=== PATIENT | female | born 1935 | race Caucasian/White ===

== ENCOUNTER 2020-01-20 12:43 | Outpatient (REF) | payer OTHER, SELFPAY ==
[2020-01-20 13:59] LABS: MANUAL DIFF FLAG NO
[2020-01-20 14:05] LABS: Basophils Percent Auto 0.2 % (0-2); Eosinophils Absolute Auto 0.1 X10*3/uL (0.0-0.4); Eosinophils Percent Auto 0.6 % (0-4); Hematocrit 41.1 % (37-47); Hemoglobin 13.5 g/dl (12.0-16.0); Imm Gran Abs Auto 0.02 X10*3/uL (0.00-0.03); Imm Gran Pct Auto 0.2 % (0.0-0.4); Lymphocytes Absolute Auto 1.5 X10*3/uL (1.2-4.9); Lymphocytes Percent Auto 18.1 % (20-40); Mean Corpuscular HGB Conc 32.8 g/dl (31.0-35.0); Mean Corpuscular Volume 94.3 fL (80-98); Mean Platelet Volume 10.7 fL (9.4-12.3); Monocytes Absolute Auto 0.8 X10*3/uL (0.1-1.2); Monocytes Percent Auto 9.2 % (2-11); Neutrophils Absolute Auto 6.1 X10*3/uL (2.0-8.3); Neutrophils Percent Auto 71.7 % (45-73); Platelet Count 303 X10*3/uL (160-400); Red Blood Count 4.36 X10*6/uL (4.20-5.50); Red Cell Distribution Width 13.2 % (11.0-16.0); White Blood Count 8.5 X10*3/uL (4.8-10.8)
[2020-01-20 14:17] LABS: Glucose Urine UA NEG (NEG); Leukocyte Esterase Urine NEG (NEG); Nitrite Urine NEG (NEG); PH 5.5 (5.0-8.0); Specific Gravity - Urine >= 1.030 (1.005-1.025); Urine Blood 1+ (NEG); Urine Ketones NEG (NEG); Urine Protein TRACE MG/DL (NEG-TRACE)
[2020-01-20 14:19] LABS: Appearance Urine HAZY; Color Urine DARK YELLOW
[2020-01-20 14:30] LABS: Alanine Aminotransferase 17 U/L (0-31); Albumin Level 4.2 g/dL (3.5-5.0); Alkaline Phosphatase 73 U/L (39-117); Anion Gap 19 (12-20); Aspartate Amino Transferase 20 U/L (5-31); Bilirubin Total 0.7 mg/dL (0.0-1.0); Blood Urea Nitrogen 24 mg/dL (9-16); C Reactive Protein 0.28 mg/dL (< or = 0.50); Calcium 9.3 mg/dL (8.4-10.2); Carbon Dioxide 22 mmol/L (22-29); Chloride 107 mmol/L (96-108); Estimated Glomerular Filt Rate > 60; Glucose Random 96 mg/dL (60-115); Potassium 4.6 mmol/l (3.3-5.1); Sodium 143 mmol/L (135-145); Total Protein 6.6 g/dL (6.5-8.0)
[2020-01-20 14:36] LABS: Bacteria Urine TRACE /LPF; Calcium Oxalate Crystals Urine 4+ /LPF; Mucus Urine 3+ /LPF
== END 2020-01-20 12:44 | disposition home or self-care (01) ==
LOC: HO.10HDL 12:43
PROVIDERS: Visit Provider Internal Medicine
DX: I10 Essential (primary) hypertension (principal)
CPT/HCPCS: 36415; 80053; 81001; 85025; 86140

== ENCOUNTER 2020-02-18 09:35 | Day surgery (SDC) | payer OTHER, SELFPAY ==
[2020-02-14 13:24] VITALS: BMI 25.0
--- NOTE | 2020-02-16 15:32 | HO.ANESPROP2 ---
Documented by User: Vesna Woo 02/16/20 15:33 HPI - Anesthesia Eval Consult details Narrative: 84yo F for Colonoscopy [facility] Past Medical History Medical History (Updated 02/18/20 @ 10:44 by Yolanda Camargo) Chest pain Elevated cholesterol HTN (hypertension) Hx of thyroid cyst Surgical History Surgical History Hx of cataract extraction Hx of excision of mass Social History Social History Smoking Status: Never smoker Use of substances other than those prescribed or required for medical reasons: No Advance Directives Information Provided: No Meds Allergies Allergy/AdvReac Type Severity Reaction Status Date / Time No Known Allergies Allergy Verified 02/14/20 13:27 [No Known Allergies*] Home Medications Medication Instructions Recorded Confirmed Type aspirin [Aspirin Low Dose] 81 mg PO DAILY 02/14/20 02/14/20 History atenolol 50 mg PO DAILY 02/14/20 02/14/20 History lisinopril 1 tab PO DAILY 02/14/20 02/14/20 History simvastatin 1 tab PO BEDTIME 02/14/20 02/14/20 History Exam Exam Date and Time: February 16, 2020 1532 Height,Weight and Vital Signs: Height 5 ft 2 in Weight 62.142 kg Pertinent Lab Results Pertinent Lab Results: Laboratory Tests 01/20/20 01/20/20 13:00 13:00 WBC 8.5 Hgb 13.5 Hct 41.1 Plt Count 303 Sodium 143 Potassium 4.6 Chloride 107 Carbon Dioxide 22 BUN 24 H Creatinine 0.84 Assessment and Plan Assessment Anesthesia Assessment: Chart Reviewed Documented by User: Yolanda Camargo 02/18/20 10:44 [facility] Past Medical History Medical History (Updated 02/18/20 @ 10:44 by Yolanda Camargo) Chest pain Elevated cholesterol HTN (hypertension) Hx of thyroid cyst Family History Family history of problems with anesthesia: Yes (Brother has 'trouble coming out of anesthesia') Surgical History Surgical History Hx of cataract extraction Hx of excision of mass History of Problems with Anesthesia: No Social History Social History Smoking Status: Never smoker Use of substances other than those prescribed or required for medical reasons: No Advance Directives Information Provided: No Meds Allergies Allergy/AdvReac Type Severity Reaction Status Date / Time No Known Allergies Allergy Verified 02/14/20 13:27 [No Known Allergies*] Home Medications Medication Instructions Recorded Confirmed Type aspirin [Aspirin Low Dose] 81 mg PO DAILY 02/14/20 02/14/20 History atenolol 50 mg PO DAILY 02/14/20 02/14/20 History lisinopril 1 tab PO DAILY 02/14/20 02/14/20 History simvastatin 1 tab PO BEDTIME 02/14/20 02/14/20 History Exam Height,Weight and Vital Signs: Vital Signs Temp Pulse Resp BP Pulse Ox 02/18/20 10:17 97.9 F 72 16 170/74 H 98 Airway Mallampati Class: II TM Dist: >3cm Neck ROM: Full Loose/Missing/Broken Teeth: No (Overlapping teeth) Heart: RRR Lungs: CTAB Assessment and Plan Assessment Anesthesia Assessment: Anesthesia Plan Discussed and Chart Reviewed Final Anesthetic Review NPO: Yes ASA Class: III Final Preanesthetic Review: No Changes in Pt Med Stat, Meds/Allgs Chart Reviewed, Consent Obtained/Reviewed and Anes Risks/Benef Reviewed Patient Risk: Intermediate Procedure Risk: Low Anesthetic Plan Anesthetic Plan: MAC: Disposition: Standard PACU
[2020-02-18 10:17] VITALS: BP 170/74; PULSE 72; RESP 16; TEMP 36.6; O2SAT 98
[2020-02-18 11:36] VITALS: BP 114/46; PULSE 67; RESP 12; TEMP 36.4; O2SAT 97
--- NOTE | 2020-02-18 11:41 | PM.OP ---
Brief Operative Note Date of Service: 02/18/20 Pre-op diagnosis: Heme + stool Post-op diagnosis: other (Colon polyp, Diverticulosis, Internal hemorrhoids) Procedure: Colonoscopy to cecum and TI with biopsy and removal of polyp Surgeon: Demarcus Vasquez Anesthesia: MAC Estimated blood loss (mL): 2.0 Pathology: other (A. Cecal polyp) Condition: stable Disposition: PACU
[2020-02-18 11:52] VITALS: BP 138/64; PULSE 77; RESP 18; O2SAT 98
[2020-02-18 12:04] VITALS: BP 154/61; PULSE 59; RESP 18; TEMP 36.6; O2SAT 98
--- NOTE | 2020-02-18 12:04 | OP_ITS ---
SURGEON: Demarcus Vasquez MD INDICATIONS: The patient presents for evaluation of recent hematochezia and heme-positive stool. Full consent has been obtained from her for this, including risks of bleeding and perforation. PREOPERATIVE DIAGNOSIS: POSTOPERATIVE DIAGNOSIS: PROCEDURE PERFORMED: Colonoscopy to the cecum and terminal ileum with biopsy and removal of polyp. ESTIMATED BLOOD LOSS: COMPLICATIONS: ANESTHESIA: Monitored anesthesia care. ASSISTANTS: SPECIMENS: PREOPERATIVE DIAGNOSES: Hematochezia and heme-positive stool. POSTOPERATIVE DIAGNOSES: Hematochezia and heme-positive stool, small colon polyp, diverticulosis, and internal hemorrhoids. DESCRIPTION OF PROCEDURE: The patient was placed in the left lateral decubitus position. The digital rectal exam revealed no abnormalities. The Olympus video pediatric colonoscope was entered into the rectum and advanced easily to the cecum. Once in the cecum, I did identify normal-appearing cecal pouch other than a flat approximately 3 or 4 mm polyp near the ileocecal valve, which was biopsied and completely removed with cold biopsy forceps. The remainder of the cecum appeared normal. The terminal ileum was cannulated and appeared normal. The scope was withdrawn back in the colon. The scope was then slowly withdrawn assessing all mucosal surfaces carefully. Preparation was excellent. I did not visualize any other polyps, colitis, nor angiodysplasia. There was a moderate amount of sigmoid diverticulosis. In the rectum, scope was retroflexed visualizing internal hemorrhoids, but no other pathology. The rectal mucosa appeared normal. The scope was straightened out and withdrawn from the patient. She tolerated procedure well and was returned to the recovery area in stable condition. IMPRESSION: 1. Small colon polyp, status post biopsy and removal. 2. Diverticulosis. 3. Internal hemorrhoids. PLAN: The results of the biopsy will be checked. Given these minimal findings and her age, I do not think she will need any further colonoscopies in the future. Since the initial episode of some bleeding, she has had no further problems like that and her bowel movements have been regular. She had a normal CBC as well. Therefore, I do not think any further workup is required. She will see me on a p.r.n. basis. MD MARGUERITE Mann/DEAN / [phone]
--- NOTE | 2020-02-18 12:12 | HO.POSTANES ---
Post Anesthesia Evaluation Post Anesthesia Evaluation Vital Signs: Vital Signs Temp Pulse Resp BP Pulse Ox 02/18/20 12:04 97.9 F 59 18 154/61 H 98 02/18/20 11:52 77 18 138/64 98 02/18/20 11:36 97.5 F 67 12 114/46 L 97 02/18/20 10:17 97.9 F 72 16 170/74 H 98 Anesthesia: Monitored Mental Status: Awake Pain Control: Satisfactory Nausea/Vomiting: None Hydration: Adequate Anesthesia-Related Issues: No Anes. Related Issues
== END 2020-02-18 12:32 | disposition home or self-care (01) ==
PROVIDERS: PCP Internal Medicine; Visit Provider Internal Medicine
PROC: 0DJD8ZZ Inspection of Lower Intestinal Tract, Via Natural or Artificial Opening Endoscopic (ICD-10-PCS; CPT 45378; principal; 2020-02-18 11:00)
DX: K92.1 Melena (principal); D12.0 Benign neoplasm of cecum; K57.30 Diverticulosis of large intestine without perforation or abscess without bleeding; K64.8 Other hemorrhoids
CPT/HCPCS: 45380; 88305

== ENCOUNTER 2020-06-25 16:00 | Emergency (ER) | payer OTHER, SELFPAY ==
[2020-06-25 16:05] VITALS: BP 205/85; PULSE 74; RESP 16; TEMP 36.6; O2SAT 97; BMI 23.3
[2020-06-25 16:18] LABS: MANUAL DIFF FLAG NO
[2020-06-25 16:24] LABS: Basophils Percent Auto 0.4 % (0-2); Eosinophils Absolute Auto 0.2 X10*3/uL (0.0-0.4); Eosinophils Percent Auto 1.6 % (0-4); Hematocrit 41.1 % (37-47); Hemoglobin 13.7 g/dl (12.0-16.0); Imm Gran Abs Auto 0.03 X10*3/uL (0.00-0.03); Imm Gran Pct Auto 0.3 % (0.0-0.4); Lymphocytes Absolute Auto 2.4 X10*3/uL (1.2-4.9); Lymphocytes Percent Auto 21.9 % (20-40); Mean Corpuscular HGB Conc 33.3 g/dl (31.0-35.0); Mean Corpuscular Hemoglobin 31.1 pg (27.0-33.0); Mean Corpuscular Volume 93.2 fL (80-98); Mean Platelet Volume 9.7 fL (9.4-12.3); Neutrophils Absolute Auto 7.2 X10*3/uL (2.0-8.3); Neutrophils Percent Auto 66.8 % (45-73); Platelet Count 287 X10*3/uL (160-400); Red Blood Count 4.41 X10*6/uL (4.20-5.50); Red Cell Distribution Width 12.2 % (11.0-16.0); White Blood Count 10.8 X10*3/uL (4.8-10.8)
[2020-06-25 16:39] LABS: Anion Gap 15 (12-20); Blood Urea Nitrogen 18 mg/dL (9-16); Calcium 9.4 mg/dL (8.4-10.2); Carbon Dioxide 25 mmol/L (22-29); Chloride 105 mmol/L (96-108); Creatinine Clr Calc Pharmacy 48.1; Estimated Glomerular Filt Rate > 60; Glucose Random 140 mg/dL (60-115); Potassium 3.9 mmol/L (3.3-5.1); Sodium 141 mmol/L (135-145)
[2020-06-25 16:46] LABS: Glucose Urine UA NEG (NEG); Leukocyte Esterase Urine TRACE (NEG); Nitrite Urine NEG (NEG); PH 5.5 (5.0-8.0); Specific Gravity - Urine 1.015 (1.005-1.025); UACC Culture Trigger YES; Urine Blood TRACE (NEG); Urine Ketones NEG (NEG); Urine Protein NEG (NEG-TRACE)
[2020-06-25 16:49] LABS: Appearance Urine CLEAR; Color Urine YELLOW
[2020-06-25 17:02] LABS: Bacteria Urine TRACE /LPF; RBC Urine 0-2 /HPF (0); Squamous Epithelial Cell Urine 1+ /LPF
[2020-06-25 20:36] VITALS: BP 232/92; PULSE 75; RESP 18; TEMP 36.7; O2SAT 97
--- NOTE | 2020-06-25 20:50 | ED_ITS ---
HPI - Nausea/Vomiting/Diarrhea General Chief complaint: Nausea/Vomiting/Diarrhea Stated complaint: NAUSEA Time Seen by Provider: 06/25/20 20:50 Source: patient Mode of arrival: ambulatory Limitations: no limitations History of Present Illness HPI Narrative: Patient had tooth extraction 4 days ago started on amoxicillin and tramadol since then feeling nauseated patient had to stop her medication within 2 days patient denies any vomiting no abdominal pain feel anxious no diarrhea no fever or chills no shortness of breath or cough MD elicited complaint: nausea Onset (ago): day(s) (6) Related Data Home Medications Medication Instructions Recorded Confirmed aspirin [Aspirin Low Dose] 81 mg PO DAILY 02/14/20 02/18/20 atenolol 50 mg PO DAILY 02/14/20 02/14/20 lisinopril 1 tab PO DAILY 02/14/20 02/18/20 simvastatin 1 tab PO BEDTIME 02/14/20 02/14/20 Previous Rx's Medication Instructions Recorded ondansetron 4 mg PO Q6-8H PRN #7 tab 06/26/20 Allergies Allergy/AdvReac Type Severity Reaction Status Date / Time No Known Allergies Allergy Verified 02/14/20 13:27 [No Known Allergies*] Review of Systems Review of Systems: Constitutional : No Weight loss, No Fever, No Chills ENT/Mouth : No sore throat, No Rhinorrhea Eyes: No Eye Pain, No Swelling Cardiovascular : No Chest Pain, no palpitations Respiratory : No Cough, No Sputum, no shortness of breath Gastrointestinal : +Nausea, No Vomiting, No Diarrhea, No abdominal Pain, no black stools Genitourinary : No Dysuria, No Urinary Frequency Musculoskeletal : No joint pain, No Myalgias, No Joint Swelling Skin : No Skin Lesions, No rash Neuro : No Weakness, No Numbness, No Dizziness, No Headache Psych : No Anxiety/Panic, No Depression Heme/Lymph: No Bruising, No Lymphadenopathy Endocrine : No Polyuria, No Polydipsia All other systems reviewed and are negative PMFSH Past Medical History Medical History Chest pain Elevated cholesterol HTN (hypertension) Hx of thyroid cyst Surgical History Hx of cataract extraction Hx of excision of mass Social History Social History Smoking Status: Never smoker Advance Directives: No Advance Directives Information Provided: No Physical Exam Vital Signs: Vital Signs: Last Vital Signs Temp 98.1 F 06/25/20 20:36 Pulse 75 06/25/20 23:55 Resp 15 06/25/20 23:55 BP 204/68 H 06/25/20 23:55 Pulse Ox 97 06/25/20 23:55 Body Mass Index 23.3 Appearance: Alert. Oriented X3. No acute distress. Anxious Eyes: Pupils equal, round and reactive to light. ENT: Pharynx normal. Neck: Normal inspection. Neck supple. CVS: Normal heart rate and rhythm. Pulses normal. Respiratory: No respiratory distress. Breath sounds normal. Abdomen: Soft and nontender. Bowel sounds are present, no mass palpable, no CVA tenderness Skin: Skin warm and dry. Normal skin color. Normal skin turgor. Extremities: No lower extremity edema. No calf tenderness Neuro: Oriented X 3. No motor deficit. No sensory deficit. MDM - Nausea/Vomiting/Diarrhea MDM Narrative Medical decision making narrative: Patient with mild nausea etiology not very clear likely medications questionable anxiety. No vomiting in the ER labs are stable will discharge patient home on [facility] Lab Data Attestation: I reviewed the patient's lab results. Result diagrams: 06/25/20 16:11 06/25/20 16:11 Labs: Lab Results 06/25/20 06/25/20 06/25/20 Range/Units 16:11 16:11 16:37 WBC 10.8 (4.8-10.8) X10*3/uL RBC 4.41 (4.20-5.50) X10*6/uL Hgb 13.7 (12.0-16.0) g/dl Hct 41.1 (37-47) % MCV 93.2 (80-98) fL MCH 31.1 (27.0-33.0) pg MCHC 33.3 (31.0-35.0) g/dl RDW 12.2 (11.0-16.0) % Plt Count 287 (160-400) X10*3/uL MPV 9.7 (9.4-12.3) fL Immature Gran % (Auto) 0.3 (0.0-0.4) % Neut % (Auto) 66.8 (45-73) % Lymph % (Auto) 21.9 (20-40) % [place] % (Auto) 9.0 (2-11) % Eos % (Auto) 1.6 (0-4) % Baso % (Auto) 0.4 (0-2) % Lymph # (Auto) 2.4 (1.2-4.9) X10*3/uL [place] # (Auto) 1.0 (0.1-1.2) X10*3/uL Eos # (Auto) 0.2 (0.0-0.4) X10*3/uL Baso # (Auto) 0.0 (0.0-0.2) X10*3/uL Abs Immat Gran (auto) 0.03 (0.00-0.03) X10*3/uL Absolute Neuts (auto) 7.2 (2.0-8.3) X10*3/uL Absolute Nucleated RBC 0.000 (0.0-0.012) X10*3/uL Nucleated RBC % (auto) 0.0 (0.0-0.2) /100WBC Sodium 141 (135-145) mmol/L Potassium 3.9 (3.3-5.1) mmol/L Chloride 105 (96-108) mmol/L Carbon Dioxide 25 (22-29) mmol/L Anion Gap 15 (12-20) BUN 18 H (9-16) mg/dL Creatinine 0.81 (0.5-1.4) mg/dL Estim Creat Clear Calc 48.1 Estimated GFR > 60 Random Glucose 140 H D (60-115) mg/dL Calcium 9.4 (8.4-10.2) mg/dL Urine Color YELLOW Urine Appearance CLEAR Urine pH 5.5 (5.0-8.0) Ur Specific [place] 1.015 (1.005-1.025) Urine Protein NEG (NEG-TRACE) MG/DL Urine Glucose (UA) NEG (NEG) MG/DL Urine Ketones NEG (NEG) MG/DL Urine Blood TRACE (NEG) Urine Nitrite NEG (NEG) Ur Leukocyte Esterase TRACE H (NEG) Urine RBC 0-2 (0) /HPF Urine WBC 1-4 (0-4) /HPF Ur Squamous Epith Cells 1+ /LPF Urine Bacteria TRACE /LPF Discharge Plan Discharge Clinical Impression: Nausea Patient Disposition: Home, Self-Care Instructions: Acute Nausea and Vomiting (ED) Additional Instructions: Drink plenty of fluids take nausea medication as advised every 8 hours as needed Report to the ER if increased vomiting /abdominal pain or not getting better Prescriptions: New ondansetron 4 mg tablet,disintegrating 4 mg PO Q6-8H PRN (Reason: nausea and vomiting) Qty: 7 RF: 0 No Action simvastatin 10 mg tablet 1 tab PO BEDTIME RF: 0 aspirin [Aspirin Low Dose] 81 mg Tablet,Delayed Release (Dr/Ec) 81 mg PO DAILY RF: 0 lisinopril 5 mg tablet 1 tab PO DAILY RF: 0 atenolol 50 mg tablet 50 mg PO DAILY RF: 0
[2020-06-25] MEDS: 0.9 % Sodium Chloride 1,000 ML 999 ML IVCONT (21:15)
[2020-06-25] MEDS: ondansetron HCL 4 MG/2 ML VIAL IVPUSH (21:15)
[2020-06-25 21:16] VITALS: BP 181/70; PULSE 67
[2020-06-25] MEDS: lisinopriL 20 MG TABLET PO (21:16)
[2020-06-25 22:12] VITALS: BP 176/71; PULSE 74; RESP 13; O2SAT 99
[2020-06-25 23:08] VITALS: BP 177/65; PULSE 67; RESP 16
[2020-06-25 23:55] VITALS: BP 204/68; PULSE 75; RESP 15; O2SAT 97
--- NOTE | 2020-06-26 00:10 | PC.NURSE ---
pt reports that her nausea is now gone. pt ambulatory to bathroom with steady gait. no complaints of dizziness or dyspnea.
== END 2020-06-26 00:33 | disposition home or self-care (01) ==
PROVIDERS: Emergency Provider Internal Medicine; PCP Internal Medicine
DX: R11.2 Nausea with vomiting, unspecified (principal); R19.7 Diarrhea, unspecified; Z79.899 Other long term (current) drug therapy
CPT/HCPCS: 36415; 80048; 81001; 81003; 85025; 87086; 96365; 96375; 99284; J2405

== ENCOUNTER 2020-06-29 13:25 | Outpatient (REF) | payer OTHER, SELFPAY ==
[2020-06-29 14:34] LABS: MANUAL DIFF FLAG NO
[2020-06-29 14:39] LABS: Basophils Percent Auto 0.3 % (0-2); Eosinophils Absolute Auto 0.1 X10*3/uL (0.0-0.4); Eosinophils Percent Auto 1.5 % (0-4); Hematocrit 40.6 % (37-47); Hemoglobin 13.4 g/dl (12.0-16.0); Imm Gran Abs Auto 0.01 X10*3/uL (0.00-0.03); Imm Gran Pct Auto 0.1 % (0.0-0.4); Lymphocytes Absolute Auto 2.2 X10*3/uL (1.2-4.9); Lymphocytes Percent Auto 23.8 % (20-40); Mean Corpuscular Hemoglobin 30.9 pg (27.0-33.0); Mean Corpuscular Volume 93.5 fL (80-98); Mean Platelet Volume 10.1 fL (9.4-12.3); Monocytes Absolute Auto 0.8 X10*3/uL (0.1-1.2); Monocytes Percent Auto 8.6 % (2-11); Neutrophils Absolute Auto 6.1 X10*3/uL (2.0-8.3); Neutrophils Percent Auto 65.7 % (45-73); Platelet Count 330 X10*3/uL (160-400); Red Blood Count 4.34 X10*6/uL (4.20-5.50); Red Cell Distribution Width 12.2 % (11.0-16.0); White Blood Count 9.2 X10*3/uL (4.8-10.8)
[2020-06-29 14:59] LABS: Alanine Aminotransferase 14 U/L (0-31); Albumin Level 4.1 g/dL (3.5-5.0); Alkaline Phosphatase 90 U/L (39-117); Anion Gap 12 (12-20); Aspartate Amino Transferase 17 U/L (5-31); Bilirubin Total 0.7 mg/dL (0.0-1.0); Blood Urea Nitrogen 13 mg/dL (9-16); C Reactive Protein 0.21 mg/dL (< or = 0.50); Calcium 9.6 mg/dL (8.4-10.2); Carbon Dioxide 24 mmol/L (22-29); Chloride 106 mmol/L (96-108); Estimated Glomerular Filt Rate > 60; Glucose Random 129 mg/dL (60-115); Lipase 68 U/L (8-78); Potassium 4.3 mmol/L (3.3-5.1); Sodium 138 mmol/L (135-145); Total Protein 6.3 g/dL (6.5-8.0)
== END 2020-06-29 13:26 | disposition home or self-care (01) ==
LOC: HO.LAB 13:25
PROVIDERS: PCP Internal Medicine; Visit Provider Internal Medicine
DX: R10.9 Unspecified abdominal pain (principal); R11.0 Nausea; I10 Essential (primary) hypertension
CPT/HCPCS: 36415; 80053; 83690; 85025; 86140

== ENCOUNTER 2020-07-17 12:46 | Outpatient (REF) | payer OTHER, SELFPAY ==
--- NOTE | ~2020-07-17 | CT_ITS ---
EXAMINATION: CT HEAD WITHOUT CONTRAST CLINICAL INFORMATION: Nausea and headache COMPARISON: None TECHNIQUE: Contiguous axial imaging was performed from the skull base to vertex without intravenous administration of contrast. This CT examination was performed using dose optimization techniques as appropriate, variously including the following: *Automated exposure control *Adjustment of mA and/or kV according to patient size (this includes techniques or standardized protocols for targeted exams where dose is matched to indication/reason for exam; i.e. extremities or head) *Use of iterative reconstruction technique DLP: 607 mGy-cm FINDINGS: There is no evidence of acute intracranial hemorrhage or territorial infarction. No abnormal mass effect or midline shift is seen. There is old infarct right frontal lobe. There is no mass effect or edema. Gomez to white matter differentiation is well preserved. No extra-axial fluid collections are identified. The ventricles are normal in size. There is no abnormal attenuation within the brain parenchyma. The osseous structures and soft tissues are normal. The mastoid air cells and visualized portions of the paranasal sinuses are well aerated. CT/CT head/brain wo con IMPRESSION: No acute intracranial process seen. Old right frontal lobe infarct.
== END 2020-07-17 12:47 | disposition home or self-care (01) ==
LOC: HO.CT 12:46
PROVIDERS: Visit Provider Internal Medicine
DX: R51.0 Headache with orthostatic component, not elsewhere classified (principal)
CPT/HCPCS: 70450

== ENCOUNTER 2020-08-28 14:16 | Outpatient (REF) | payer OTHER, SELFPAY ==
[2020-08-28 14:43] LABS: Glucose Urine UA NEG (NEG); Leukocyte Esterase Urine 1+ (NEG); Nitrite Urine NEG (NEG); Urine Blood NEG (NEG); Urine Ketones NEG (NEG); Urine Protein NEG (NEG-TRACE)
[2020-08-28 14:45] LABS: Appearance Urine HAZY; Color Urine YELLOW
[2020-08-28 14:55] LABS: RBC Urine 0 /HPF (0); Renal Epithelial Cells Urine TRACE /LPF
== END 2020-08-28 14:17 | disposition home or self-care (01) ==
LOC: HO.LAB 14:16
PROVIDERS: PCP Internal Medicine; Visit Provider Internal Medicine
DX: R30.0 Dysuria (principal)
CPT/HCPCS: 81001; 87086

== ENCOUNTER 2020-11-01 13:30 | Outpatient (REF) | payer OTHER, SELFPAY ==
[2020-11-01 14:31] LABS: Blood Urea Nitrogen 21 mg/dL (9-16); Estimated Glomerular Filt Rate > 60
== END 2020-11-01 13:31 | disposition home or self-care (01) ==
LOC: HO.LAB 13:30
PROVIDERS: PCP Internal Medicine; Visit Provider Psychiatry & Neurology Neurology
DX: Z86.73 Personal history of transient ischemic attack (TIA), and cerebral infarction without residual deficits (principal)
CPT/HCPCS: 36415; 82565; 84520

== ENCOUNTER 2020-11-22 07:55 | Outpatient (REF) | payer OTHER, SELFPAY ==
--- NOTE | ~2020-11-22 | CT_ITS ---
EXAMINATION: CT HEAD WITHOUT CONTRAST CLINICAL INFORMATION: Embolic cerebral infarction. COMPARISON: CT scan of the head 07/17/2020. TECHNIQUE: A noncontrast axial CT scan of the head was obtained. Test bolus series followed by intravenous administration 17 mL of Omnipaque 350. Helical imaging was performed in the axial plane from the mediastinum to the skull vertex. The degree of stenosis is based off NASCET criteria. The data was processed at the electronics engineering technologist workstation for generation of MIP images. Three-dimensional volume rendered reformatted images were also generated at an offline 3-D workstation. This CT examination was performed using dose optimization techniques as appropriate, variously including the following: *Automated exposure control *Adjustment of mA and/or kV according to patient size (this includes techniques or standardized protocols for targeted exams where dose is matched to indication/reason for exam; i.e. extremities or head) *Use of iterative reconstruction technique DLP: 2065 mGy-cm. FINDINGS: CT Head: The study redemonstrates an area of gliosis and encephalomalacia in the right frontal lobe, consistent with a chronic infarct, which was demonstrated on prior imaging. There is a small lacunar infarct in the right periventricular white matter. There is no abnormal enhancement noted following intravenous contrast administration. There is no evidence of acute intracranial hemorrhage or a new territorial infarction. No abnormal mass-effect or midline shift is seen. Gomez to white matter differentiation is well preserved. No extra-axial fluid collections are identified. There is no abnormal enhancement. The ventricles and sulci are commensurately prominent consistent with mild diffuse volume loss. In addition to the parenchymal changes described above, there are areas of low-attenuation in the periventricular and subcortical white matter, consistent with chronic microvascular ischemic changes. Heterogenous low attenuation is noted in the mak which may be due to sequelae of prior infarct or artifact. There are no acute osseous findings. There have been bilateral lens extractions. There is hyperostosis frontalis interna. The mastoid air cells and paranasal sinuses are well-aerated. CTA Neck: There are atheromatous calcifications of the aortic arch and at the origins of the great vessels of the neck. The common carotid arteries bilaterally are patent. There are mild atheromatous calcifications at the carotid bifurcations bilaterally without significant stenosis. The cervical internal carotid arteries have uniform caliber and are patent bilaterally. The vertebral artery origins are well-demonstrated. The right vertebral artery is dominant. Both vertebral arteries are patent throughout their cervical course extending intradurally. Nonvascular: The left lobe of the thyroid gland is markedly enlarged with heterogenous attenuation and calcifications. The left lobe measures 4.0 x 3.6 cm (AP and transverse). There is mild mass effect on the trachea which is slightly deviated to the right of midline, but tracheal caliber is normal. There is no cervical lymphadenopathy; small lymph nodes are noted in multiple levels in the neck bilaterally. There are spondylitic and facet arthropathic changes at multiple levels in the cervical spine. There are no acute fractures or subluxations. There are mild emphysematous changes in the lungs bilaterally. There are mild atelectatic changes in the posterior lungs bilaterally. There is bilateral pleuroparenchymal scarring. CTA Head: There are mild atheromatous calcifications of the cavernous internal carotid arteries bilaterally, but the vessels are patent. The middle and anterior cerebral arteries bilaterally demonstrate normal caliber with no evidence of focal stenosis, aneurysm or vascular malformation. There is normal arborization of the middle cerebral artery branches. The anterior communicating artery is normal. In the posterior circulation, the right vertebral artery is dominant. A prominent branch of the right vertebral artery ends primarily in the PICA. The basilar artery is patent. The right posterior cerebral artery has a origin. The vertebral arteries are patent bilaterally. The venous sinuses opacify normally. CT/CT angio head neck IMPRESSION: 1. There are no acute bleeds or territorial infarcts. There are no intracranial masses or areas of abnormal enhancement. There are sequelae of a chronic infarct in the right frontal lobe. 2. The left lobe of the thyroid gland is markedly enlarged with heterogenous attenuation and calcifications. This can be further evaluated with a thyroid ultrasound. 3. There are mild atheromatous calcifications at multiple levels in the head and neck, but there are no focal stenoses, aneurysms or vascular malformations.
[2020-11-22] MEDS: iohexoL 350 MG/ML 100 ML INFUS..BTL 70 ML IV (08:57)
== END 2020-11-22 07:56 | disposition home or self-care (01) ==
LOC: HO.CT 07:55
PROVIDERS: PCP Internal Medicine; Visit Provider Psychiatry & Neurology Neurology
DX: Z86.73 Personal history of transient ischemic attack (TIA), and cerebral infarction without residual deficits (principal)
CPT/HCPCS: 70496; 70498; Q9967

== ENCOUNTER → 2020-12-08 13:15 | Outpatient (REF) | payer OTHER, SELFPAY ==
--- NOTE | 2020-12-08 13:19 | ECG_ITS ---
Hook-up date: 2020-12-08 13:30:00 Duration: 47:59:00 Test Indications: EMBOLIC CEREBRAL INFARCTION Medications: 199367 QRS complexes 36916 Ventricular ectopics which represent 5 % of total QRS comp. 80 Supraventricular ectopics which represent <1 % of total QRS comp. * Paced QRS complexs which represent % of total QRS comp. VENTRICULAR ECTOPY 12297 Isolated 30 Bigeminal Cycles 12 Couplets 1 Runs 3 Beats in Runs 3 Beats LONGEST at 119 BPM at 09:01:56 2020-12-10 3 Beats FASTEST at 119 BPM at 09:01:56 2020-12-10 SUPRAVENTRICULAR ECTOPY 35 Isolated 4 Couplets 9 Runs 37 Beats in Runs 6 Beats LONGEST at 97 BPM at 21:42:11 2020-12-09 5 Beats FASTEST at 134 BPM at 10:42:04 2020-12-09 HEART RATES 40 MIN at 04:49:50 2020-12-10 63 AVG 92 MAX at 09:47:00 2020-12-09 LONGEST RR 1.8560 secs at 01:10:54 2020-12-09 S-T LEVELS Channel 1 - 128 mm at 13:30:00 2020-12-08 - 128 mm at 13:30:00 2020-12-08 Channel 2 - 128 mm at 13:30:00 2020-12-08 - 128 mm at 13:30:00 2020-12-08 Channel 3 - 128 mm at 03:24:91 -- - 128 mm at 03:24:91 Underlying rhythm is sinus; Average ventricular rate 63/min; range 40-92/min; Rare supraventricular ectopy; isolated; longest run 6 beats; Frequent ventricular ectopy; burden 6%; mostly isolated; some couplets, bigeminy, longest run 3 beats; variable morphology; Patient did not report any symptoms in the diary Referred By: Eneida Stover Overread By: INES AGRAWAL
== END ==
LOC: HO.CARD 13:15
PROVIDERS: PCP Internal Medicine; Visit Provider Psychiatry & Neurology Neurology
DX: I63.40 Cerebral infarction due to embolism of unspecified cerebral artery (principal)
CPT/HCPCS: 93225; 93226

== ENCOUNTER 2020-12-22 08:14 | Emergency (ER) | payer OTHER, SELFPAY ==
--- NOTE | ~2020-12-22 | XR_ITS ---
EXAMINATION: XR CHEST CLINICAL INFORMATION: Chest pain. COMPARISON: Most recent chest radiograph dated 07/29/2016. TECHNIQUE: Frontal view of the chest was obtained. FINDINGS: The lungs are clear. The cardiomediastinal silhouette is normal in size. There is no pleural effusion or pneumothorax. No acute osseous abnormality. XR/XR chest 1V IMPRESSION: No acute cardiopulmonary findings.
--- NOTE | 2020-12-22 08:16 | ECG_ITS ---
Test Reason : CHEST PRESSURE Blood Pressure : / mmHG Vent. Rate : 072 BPM Atrial Rate : 072 BPM P-R Int : 156 ms QRS Dur : 094 ms QT Int : 370 ms P-R-T Axes : 054 -12 036 degrees QTc Int : 405 ms Normal sinus rhythm Intra-ventricular conduction delay Minimal voltage criteria for LVH, may be normal variant ( Kiran product ) Borderline ECG No previous ECGs available Referred By: Generic ED Physician Electronically Signed By:ABILIO SIMON MD
[2020-12-22 08:42] LABS: MANUAL DIFF FLAG NO
[2020-12-22 08:45] LABS: Basophils Percent Auto 0.3 % (0-2); Eosinophils Absolute Auto 0.1 X10*3/uL (0.0-0.4); Hematocrit 40.3 % (37-47); Hemoglobin 13.6 g/dl (12.0-16.0); Imm Gran Abs Auto 0.01 X10*3/uL (0.00-0.03); Imm Gran Pct Auto 0.1 % (0.0-0.4); Lymphocytes Absolute Auto 1.5 X10*3/uL (1.2-4.9); Mean Corpuscular HGB Conc 33.7 g/dl (31.0-35.0); Mean Corpuscular Volume 91.8 fL (80-98); Mean Platelet Volume 9.6 fL (9.4-12.3); Monocytes Absolute Auto 0.5 X10*3/uL (0.1-1.2); Monocytes Percent Auto 6.7 % (2-11); Neutrophils Percent Auto 70.9 % (45-73); Platelet Count 243 X10*3/uL (160-400); Red Blood Count 4.39 X10*6/uL (4.20-5.50); Red Cell Distribution Width 12.6 % (11.0-16.0)
[2020-12-22 08:58] LABS: Anion Gap 12 (12-20); Blood Urea Nitrogen 15 mg/dL (9-16); Calcium 9.6 mg/dL (8.4-10.2); Carbon Dioxide 23 mmol/L (22-29); Chloride 108 mmol/L (96-108); Estimated Glomerular Filt Rate > 60; Glucose Random 192 mg/dL (60-115); Potassium 3.6 mmol/L (3.3-5.1); Sodium 139 mmol/L (135-145)
[2020-12-22 09:05] LABS: Troponin-I High Sensitivity < 3.5 ng/L (<3.5-17.0)
[2020-12-22 09:19] VITALS: BP 199/76; PULSE 64; RESP 16; TEMP 36.8; O2SAT 98; BMI 22.3
--- NOTE | 2020-12-22 09:33 | ED_ITS ---
HPI - Chest Pain General Chief Complaint: Chest Pain Stated Complaint: chest pressure Time Seen by Provider: 12/22/20 09:33 Source: patient Mode of arrival: ambulatory Limitations: no limitations History of Present Illness HPI narrative: 85-year-old female with a history of embolic stroke, hypertension, hyperlipidemia who presents to the ER with 5 days of intermittent non-radiating left-sided chest heaviness. She reports having pain like this but not in the last several years. She states the pain is described as a heavy type of feeling bloated her left chest. It comes and goes at random times. It is not associated with exertion. She admits to being stressed and anxious. She has had no shortness of breath, nausea or diaphoresis when these episodes occur. She currently has no chest discomfort or heaviness. On arrival to the ER blood pressure was 199/76, she had taken her lisinopril and atenolol dose prior to coming in. She had no headache, chest pain, vision changes, or dizziness. She reports having a recent Holter monitor, but has not heard about any the results. MD complaint: chest heaviness Onset (ago): day(s) (5) Timing of current episode: episodic Prior episodes: Yes Onset: during rest and awoke with symptoms Pain location: left chest Pain radiation: none Severity: mild Pain scale (0-10): 4 Quality: heaviness Relieving factors: nothing Exacerbating factors: nothing Treatment prior to arrival: none Risk Factors Coronary artery disease risk factors: hyperlipidemia and hypertension Thoracic aortic dissection risk factors: none Related Data Home Medications Medication Instructions Recorded Confirmed aspirin 81 mg tablet,delayed 81 mg PO DAILY 02/14/20 02/18/20 release (Aspirin Low Dose) atenolol 50 mg tablet 50 mg PO DAILY 02/14/20 02/14/20 lisinopril 5 mg tablet 1 tab PO DAILY 02/14/20 02/18/20 simvastatin 10 mg tablet 1 tab PO BEDTIME 02/14/20 02/14/20 Previous Rx's Medication Instructions Recorded ondansetron 4 mg disintegrating 4 mg PO Q6-8H PRN #7 tab 06/26/20 tablet Allergies Allergy/AdvReac Type Severity Reaction Status Date / Time No Known Allergies Allergy Verified 02/14/20 13:27 [No Known Allergies*] Review of Systems Review of Systems: Constitutional: No Fever, No Chills ENT/Mouth: No sore throat, No Rhinorrhea, No Swallowing Difficulty Cardiovascular: + Chest Pain, No SOB, No Orthopnea, No Edema Respiratory: No Cough, No Sputum, No Wheezing, No dyspnea Gastrointestinal: No Nausea, No Vomiting, No Diarrhea, No abdominal Pain Genitourinary: No Dysuria, No Urinary Frequency, No Hematuria Musculoskeletal: No joint pain, No Myalgias Skin: No Skin Lesions, No rash Neuro: No Weakness, No Numbness, No Dizziness, No Headache Psych: + Anxiety/Panic, No Depression Heme/Lymph: No Bruising, No Lymphadenopathy Endocrine: No Polyuria, No Polydipsia PMFSH Past Medical History Medical History Chest pain Elevated cholesterol HTN (hypertension) Hx of thyroid cyst Surgical History Hx of cataract extraction Hx of excision of mass Social History Social History Advance Directives: No Physical Exam Vital Signs: Vital Signs: Last Vital Signs Temp 98.5 F 12/22/20 09:59 Pulse 64 12/22/20 09:59 Resp 14 12/22/20 09:59 BP 168/75 H 12/22/20 09:59 Pulse Ox 98 12/22/20 09:59 Body Mass Index 22.3 Appearance: Alert. Oriented X3. No acute distress. Eyes: Pupils equal, round and reactive to light. ENT: Pharynx normal. Neck: Normal inspection. Neck supple. CVS: Normal heart rate and rhythm. Pulses normal. No chest wall tenderness. Respiratory: No respiratory distress. Breath sounds normal. Abdomen: Soft and nontender. +BS x4 Skin: Skin warm and dry. Normal skin color. Normal skin turgor. No rashes. Extremities: No lower extremity edema. Neuro: Oriented X 3. No motor deficit. No sensory deficit. Course Course Course Narrative: 85 y/o female with history of HTN/HLD who presents to the ER with intermittent left sided chest heaviness that started 5 days ago. Of note she recently did see have a Holter monitor in place for 5 days which revealed rare supraventricular ectopy and some ventricular ectopy as well, mostly isolated couplets and bigeminy. She not have any reported symptoms during these events. At this time she is chest pain-free. She is hypertensive on arrival with systolic blood pressure in the 190s. She is asymptomatic from this. She just took her antihypertensive medications. Will get EKG, troponin, basic lab workup and repeat her blood pressure. Reevaluation(s) Reevaluation #1: Repeat blood pressure is significantly improved 160s/ 70s. She remains chest pain free. Her troponin is negative. Her EKG does not have any ST segment elevations or depressions, no T-wave inversions or concerns for cardiac ischemia. At this time she is stable for discharge home with planned for outpatient follow-up with Dr. Belle as well as with Dr. Richardson for follow-up with her Holter monitor and for further evaluation. She was advised to come back to the ER if her chest pains worsened or changed at all. She is stable for discharge home. MDM - Chest Pain Lab Data Result diagrams: 12/22/20 08:38 12/22/20 08:38 Labs: Lab Results 12/22/20 12/22/20 12/22/20 Range/Units 08:38 08:38 08:38 WBC 7.0 (4.8-10.8) X10*3/uL RBC 4.39 (4.20-5.50) X10*6/uL Hgb 13.6 (12.0-16.0) g/dl Hct 40.3 (37-47) % MCV 91.8 (80-98) fL MCH 31.0 (27.0-33.0) pg MCHC 33.7 (31.0-35.0) g/dl RDW 12.6 (11.0-16.0) % Plt Count 243 D (160-400) X10*3/uL MPV 9.6 (9.4-12.3) fL Immature Gran % (Auto) 0.1 (0.0-0.4) % Neut % (Auto) 70.9 (45-73) % Lymph % (Auto) 21.0 (20-40) % [place] % (Auto) 6.7 (2-11) % Eos % (Auto) 1.0 (0-4) % Baso % (Auto) 0.3 (0-2) % Lymph # (Auto) 1.5 (1.2-4.9) X10*3/uL [place] # (Auto) 0.5 (0.1-1.2) X10*3/uL Eos # (Auto) 0.1 (0.0-0.4) X10*3/uL Baso # (Auto) 0.0 (0.0-0.2) X10*3/uL Abs Immat Gran (auto) 0.01 (0.00-0.03) X10*3/uL Absolute Neuts (auto) 5.0 (2.0-8.3) X10*3/uL Absolute Nucleated RBC 0.000 (0.0-0.012) X10*3/uL Nucleated RBC % (auto) 0.0 (0.0-0.2) /100WBC Sodium 139 (135-145) mmol/L Potassium 3.6 (3.3-5.1) mmol/L Chloride 108 (96-108) mmol/L Carbon Dioxide 23 (22-29) mmol/L Anion Gap 12 (12-20) BUN 15 (9-16) mg/dL Creatinine 0.76 (0.5-1.4) mg/dL Estim Creat Clear Calc TNP Estimated GFR > 60 Random Glucose 192 H (60-115) mg/dL Calcium 9.6 (8.4-10.2) mg/dL Troponin I High Sens < 3.5 (<3.5-17.0) ng/L ECG Data ECG #1: Attestation: I personally reviewed and interpreted this ECG as follows: ECG interpretation date: 12/22/20 ECG interpretation time: 10:05 Prior ECG tracings: available for review Interpretation: normal sinus rhythm, HR 72 bpm, LVH, normal CT interval, normal QTc, no ST depressions or elevations. No t-wave inversions. Critical Care Time Critical Care Time Critical Care Time: No Discharge Plan Discharge Clinical Impression: Atypical chest pain Patient Disposition: Home, Self-Care Instructions: Chest Pain (ED) Additional Instructions: Your workup today was unremarkable. Your lab work and EKG did not show any evidence of concerning findings. Your blood pressure was elevated today. Recommend following up with your doctor this week. Recommend following up with Dr. Richardson from Cardiology for further evaluation. If you develop new or worsening symptoms call 911 or come back to the ER for further evaluation. Prescriptions: No Action simvastatin 10 mg tablet 1 tab PO BEDTIME RF: 0 aspirin [Aspirin Low Dose] 81 mg Tablet,Delayed Release (Dr/Ec) 81 mg PO DAILY RF: 0 lisinopril 5 mg tablet 1 tab PO DAILY RF: 0 atenolol 50 mg tablet 50 mg PO DAILY RF: 0 ondansetron 4 mg tablet,disintegrating 4 mg PO Q6-8H PRN (Reason: nausea and vomiting) Qty: 7 RF: 0 Referrals: Berto Belle MD [Physician] - 2 days (intermittent chest pains, HTN) Mc Richardson MD [Physician] - 2 days
[2020-12-22 09:59] VITALS: BP 168/75; PULSE 64; RESP 14; TEMP 36.9; O2SAT 98
== END 2020-12-22 10:47 | disposition home or self-care (01) ==
PROVIDERS: Emergency Provider Emergency Medicine; PCP Internal Medicine
DX: R07.89 Other chest pain (principal); Z79.899 Other long term (current) drug therapy; I10 Essential (primary) hypertension; E78.5 Hyperlipidemia, unspecified
CPT/HCPCS: 36415; 71045; 80048; 84484; 85025; 93005; 99283; 99284

== ENCOUNTER 2021-01-03 12:51 | Outpatient (REF) | payer OTHER, SELFPAY ==
[2021-01-03 14:27] LABS: Estimated Average Glucose 105 mg/dL; Hemoglobin A1c % 5.3 %
[2021-01-03 14:34] LABS: Anion Gap 13 (12-20); Blood Urea Nitrogen 22 mg/dL (9-16); Calcium 9.8 mg/dL (8.4-10.2); Carbon Dioxide 24 mmol/L (22-29); Chloride 107 mmol/L (96-108); Estimated Glomerular Filt Rate > 60; Glucose Random 110 mg/dL (60-115); Sodium 140 mmol/L (135-145)
== END 2021-01-03 12:52 | disposition home or self-care (01) ==
LOC: HO.10HDL 12:51
PROVIDERS: Visit Provider Internal Medicine
DX: I10 Essential (primary) hypertension (principal); E11.9 Type 2 diabetes mellitus without complications
CPT/HCPCS: 36415; 80048; 83036

== ENCOUNTER 2021-01-22 15:05 | Outpatient (REF) | payer OTHER, SELFPAY ==
--- NOTE | ~2021-01-22 | US_ITS ---
EXAMINATION: US THYROID CLINICAL INFORMATION: Enlarged thyroid COMPARISON: CTA head/neck 11/22/2020 TECHNIQUE: Linear transducer grayscale and color Doppler examination with attention to the region of the thyroid. FINDINGS: SIZE: Measurements of the thyroid lobes and nodules are given in sagittal, anteroposterior and transverse dimensions respectively. Right Thyroid Lobe: 2.8 x 0.6 x 0.8 cm, volume 0.8 mL. Parenchyma: The gland echotexture is homogeneous. Thyroid vascularity is normal. Left Thyroid Lobe: 7.0 x 3.6 x 2.9 cm, volume 37.9 mL. Parenchyma: The gland echotexture is heterogeneous. Thyroid vascularity is increased. Isthmus: 0.3 cm in maximum AP dimension. Estimated total number of nodules greater than or equal to 1 cm: 1. Folding Machine Setter nodules are described as follows: 1. Location: Left mid. Size: 5.5 x 3.3 x 2.8 cm, volume 26.6 mL. Nodule characteristics: Composition: Solid (2). Echogenicity: Isoechoic (1). Shape: Not taller than wide (0). Margins: Smooth (0). Echogenic Foci: Punctate echogenic foci (3). ACR TI-RADS total points: 6 ACR TI-RADS category: 4 NODES: No abnormal appearing lymph nodes identified within the tissue surrounding the thyroid gland. US/US thyroid IMPRESSION: 5.5 cm TR 4 nodule of the left thyroid lobe. FNA recommended. ACR TI-RADS RECOMMENDATION REFERENCE: Ultrasound-guided fine-needle aspiration, followup ultrasound, no further follow up. * TR4 (4-6 points): FNA if more than or equal to 1.5 cm in maximum dimension, followup ultrasound in 1, 2, 3 and 5 years if 1 to 1.4 cm in maximum dimension. * TR3, TR4 or TR5 nodules that are below the size threshold for follow up receive no follow up.
== END 2021-01-22 15:06 | disposition home or self-care (01) ==
LOC: HO.US 15:05
PROVIDERS: PCP Internal Medicine; Visit Provider Internal Medicine
DX: E04.9 Nontoxic goiter, unspecified (principal)
CPT/HCPCS: 76536

== ENCOUNTER → 2021-02-16 09:07 | Outpatient (REF) | payer OTHER, SELFPAY ==
--- NOTE | 2021-02-16 09:14 | CA_ITS ---
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 - There is mildly increased left ventricular wall thickness. - E/E prime ratio is between 8 and 15 consistent with indeterminate filling pressures. - Normal right ventricular cavity size and systolic function. - There is mild posterior mitral leaflet prolapse. There is mild mitral valve regurgitation. - There is mild tricuspid valve regurgitation. Normal right atrial pressure. There is no evidence of pulmonary hypertension. Findings Left Ventricle Normal left ventricular size and systolic function. There is mildly increased left ventricular wall thickness. The visually estimated ejection fraction is between 60-65%. Abnormal diastolic function is noted. Spectral Doppler is indicative of an impaired relaxation filling pattern. E/E prime ratio is between 8 and 15 consistent with indeterminate filling pressures. Right Ventricle Normal right ventricular cavity size and systolic function. Atria Both atria are normal in size. Aortic Valve Normal aortic valve structure and function. There is no aortic valve stenosis. There is trace (trivial) aortic valve regurgitation. Mitral Valve There is mild posterior mitral leaflet prolapse. There is mild mitral valve regurgitation. There is no mitral valve stenosis. Pulmonic Valve Normal pulmonic valve structure and function. There is trace pulmonic valve regurgitation. Tricuspid Valve Normal tricuspid valve structure. There is mild tricuspid valve regurgitation. Normal right atrial pressure. There is no evidence of pulmonary hypertension. Great Vessels All visible segments of the aorta are normal in size. The visualized portions of the pulmonary artery and branches are normal. Venous The inferior vena cava is normal in size and collapses greater than 50% with inspiration. Pericardium/Pleural There is no evidence of pericardial effusion. Measurements 2D Linear Measurements IVSd: 1.15 0.6-0.9/0.6-1.0 cm LVIDd: 5.05 3.9-5.3/4.2-5.9 cm LVIDd Index: 3.14 2.4-3.2/2.2-3.1 cm/m2 LVIDs: 2.93 2.0-3.6 cm LVPWd: 1.01 0.7-1.1 cm Ao Root: 3.00 2.1-3.5 cm LA Diam: 3.70 2.7-3.8/3.0-4.0 cm LAIDs Index: 2.30 1.5-2.3 cm/m2 LV Mass: 255.86 67-162/88-224 g LV Mass Index: 158.92 43-95/49-115 g/m2 LVOT Diam: 1.90 3.0+(-)1.3 cm 2D Systolic Function EF 4C: 69.50 >55% EF 2C: 55.70 >55% EF BiP: 62.70 >55% Mitral Valve MV Pk E: 0.57 MV PK A: 0.66 MV Decel Time: 254.00 E/A: 0.90 E'Lateral: 6.74 E'Medial: 4.79 E/E' Med: 11.80 E/E' Lat: 8.40 PHT: 74.00 MVA PHT: 2.97 Decel [place]: 2.22 Aortic Valve AoV Pk [place]: 1.29 AoV Pk Grad: 7.00 LVOT LVOT Pk [place]: 1.12 LVOT Mn [place]: 0.71 LVOT VTI: 0.26 LVOT Pk Grad: 5.00 LVOT Mn Grad: 2.00 LVOT Diam: 1.90 LVOT Area: 2.84 Diastolic Function MV Pk E: 0.57 MV Pk A: 0.66 E/A: 0.90 E'Medial: 4.79 E/E' Med: 11.80 E' Laterial: 6.74 E/E' Lat: 8.40 Right Ventricle TAPSE (mm): 2.19 Tricuspid Valve TR Pk [place]: 2.31 TR Pk Grad: 21.00 RA Press: 3.00 RVSP: 24.00 Great Vessels Aorta Ao Root-2D: 3.00 2.0-3.7 cm Ao Asc: 3.10 2.1-3.4 cm Updated in Other Vendor System with Status of Final [place] MD electronically signed on 02/18/2021 8:08:54 PM with status of Final
== END ==
LOC: HO.CARD 09:07
PROVIDERS: Visit Provider Psychiatry & Neurology Neurology
DX: I63.40 Cerebral infarction due to embolism of unspecified cerebral artery (principal)
CPT/HCPCS: 93306

== ENCOUNTER 2021-02-17 10:33 | Emergency (ER) | payer OTHER, SELFPAY ==
--- NOTE | ~2021-02-17 | CT_ITS ---
EXAMINATION: CT ABDOMEN AND PELVIS WITH CONTRAST CLINICAL INFORMATION: Abdominal pain COMPARISON: None TECHNIQUE: Multidetector volumetric images were obtained from the superior aspect of the liver through the pubic symphysis following administration 85 mL of Omnipaque 350 intravenous contrast. Sagittal and coronal reformatted images were obtained on the technologist's workstation. Oral contrast: Yes This CT examination was performed using dose optimization techniques as appropriate, variously including the following: *Automated exposure control *Adjustment of mA and/or kV according to patient size (this includes techniques or standardized protocols for targeted exams where dose is matched to indication/reason for exam; i.e. extremities or head) *Use of iterative reconstruction technique DLP: 494 mGy-cm FINDINGS: LUNG BASES: The visualized lung bases are unremarkable. LIVER, GALLBLADDER, AND BILIARY TREE: The liver is normal in size, shape, and attenuation. No focal hepatic lesion or biliary ductal dilatation is present. The gallbladder is unremarkable with no evidence of radiopaque gallstones, gallbladder wall thickening, or obvious pericholecystic inflammatory changes. PANCREAS: Unremarkable. SPLEEN: Unremarkable. ADRENAL GLANDS: Unremarkable. KIDNEYS AND URETERS: There are bilateral renal cysts. Largest cyst measures 3 cm in the upper pole of the right kidney. There is a 0.9 cm cyst with single septation and Hounsfield units postcontrast measure 20 suggestive of the complex cyst, probably a Bosniak type II cyst. The remainder of the renal cysts represent simple cysts. Kidneys are otherwise unremarkable. No imaging follow-up needed. BLADDER: Unremarkable. GASTROINTESTINAL TRACT: There is diverticulosis of the colon. No evidence of diverticulitis is seen. There is stool throughout the colon. Small and large bowel is otherwise unremarkable. The appendix is unremarkable. The stomach is unremarkable. ABDOMINAL WALL: No significant hernia is appreciated. LYMPH NODES: Normal. VASCULAR: Unremarkable. PELVIC VISCERA: There is a 4.2 x 4.6 cm right ovarian cyst. There is a 1.6 x 1.8 cm left ovarian cyst. OSSEOUS STRUCTURES: There are degenerative changes of the spine and scoliosis. CT/CT abdomen pelvis w con IMPRESSION: Diverticulosis and constipation. Bilateral renal cysts. Bilateral ovarian cysts, largest measuring 4.2 x 4.6 cm on the right. SHEAR GRINDER OPERATOR consultation recommended. Fleischner guidelines were followed.
[2021-02-17 10:40] VITALS: BP 129/84; PULSE 57; RESP 18; TEMP 36.7; O2SAT 96; BMI 22.3
--- NOTE | 2021-02-17 12:07 | ED.ABDPAIN ---
HPI - Abdominal Pain General Chief Complaint: Abdominal Pain Stated Complaint: Abd pain Time Seen by Provider: 02/17/21 11:54 Source: patient Limitations: no limitations History of Present Illness HPI narrative: 85 years old female with past medical history of hypertension, hyperlipidemia, embolic stroke is here today for abdominal discomfort. Patient reports diffuse and intermittent mild abdominal pain that does not radiate anywhere. Patient reports that the pain is not affected by the food that she is eating. Patient reports that she has normal bowel movements and feels like she empties her bowels completely. Patient denies any urinary symptoms,. Denies any nausea or vomiting. Denies any melena, hematochezia, unintentional weight loss or ribbon like stools. Denies any dyspepsia dysphagia or odynophagia. Last colonoscopy in February of [address] Vasquez for melena showed colon polyp, diverticulosis, internal hemorrhoid. Biopsy showed tubular adenoma without high-grade dysplasia or carcinoma. MD elicited complaint: abdominal pain Pertinent past history: none Onset (ago): week(s) Pain Consistency: intermittent Location: other ( mid abdominal area) Severity: mild Quality: cramping Radiation: other ( mid abdominal area) Migration to: no migration Exacerbating factors: nothing Relieving factors: nothing Associated symptoms: denies other symptoms Related Data Home Medications Medication Instructions Recorded Confirmed aspirin 81 mg tablet,delayed 81 mg PO DAILY 02/14/20 02/18/20 release (Aspirin Low Dose) atenolol 50 mg tablet 50 mg PO DAILY 02/14/20 02/14/20 lisinopril 5 mg tablet 1 tab PO DAILY 02/14/20 02/18/20 simvastatin 10 mg tablet 1 tab PO BEDTIME 02/14/20 02/14/20 Previous Rx's Medication Instructions Recorded ondansetron 4 mg disintegrating 4 mg PO Q6-8H PRN #7 tab 06/26/20 tablet docusate sodium 100 mg capsule 100 mg PO BEDTIME #30 cap 02/17/21 methylcellulose (laxative) 500 mg 500 mg PO DAILY #30 tab 02/17/21 tablet (Fiber Laxative (methylcellulose)) Allergies Allergy/AdvReac Type Severity Reaction Status Date / Time No Known Allergies Allergy Verified 02/14/20 13:27 [No Known Allergies*] Review of Systems Review of Systems Constitutional : No Weight loss, No Fever, No Chills, No Night Sweats, No Fatigue, No Malaise ENT/Mouth : No Hearing loss, No Ear Pain, No Nasal Congestion, No Sinus Pain, No Hoarseness, No sore throat, No Rhinorrhea, No Swallowing Difficulty Eyes: No Eye Pain, No Swelling, No Redness, No Foreign Body, No Discharge, No Vision Changes Cardiovascular : No Chest Pain, No SOB, No Dyspnea on Exertion, No Orthopnea, No Edema, No Palpitations Respiratory : No Cough, No Sputum, No Wheezing, No Smoke Exposure, No Dyspnea Gastrointestinal : No Nausea, No Vomiting, No Diarrhea, No Constipation, abdominal Pain, No Hematochezia, No Melena Genitourinary : no irregular bleeding, No Dysuria, No Urinary Frequency, No Hematuria, No Urinary Incontinence, No Urgency, No Flank Pain, No Urinary Flow Changes, No Hesitancy Musculoskeletal : No joint pain, No Myalgias, No Joint Swelling Skin : No Skin Lesions, No rash Neuro : No Weakness, No Numbness, No Paresthesias, No Loss of Consciousness, No Dizziness, No Headache Psych : No Anxiety/Panic, No Depression, No SI/HI/AH/VH, No Social Issues, Yes all other systems are reviewed and are negative Physical Exam Vital Signs: Vital Signs: Last Vital Signs Temp 98.1 F 02/17/21 10:40 Pulse 65 02/17/21 13:04 Resp 16 02/17/21 13:04 BP 181/65 H 02/17/21 13:04 Pulse Ox 99 02/17/21 13:04 BMI result Body Mass Index 22.3 Const: General: healthy appearing, no acute distress and well developed Nutritional Appearance: well nourished Orientation/consciousness: patient oriented x3 HENMT: Head: Yes normal to inspection, Yes normocephalic and Yes atraumatic Face and sinus: Yes normal facial exam Mouth: Normal oral and palatal mucosa present Throat: Yes posterior oropharynx normal, Yes tonsils normal and Yes uvula midline Eyes: General: appearance normal, both eyes and all related structures Neck: Neck: Yes normal visual inspection, Yes full ROM and Yes trachea midline Thyroid: Thyroid normal Resp: Effort & Inspection: normal respiratory effort, able to speak in complete sentences, no tracheal deviation and symmetric chest movement Auscultation: clear to auscultation bilaterally Cardio: Jugular venous distension: no JVD Rate: regular rate Heart sounds: S1 normal heart sound present, S2 normal heart sound present, no gallops and no murmurs GI: Inspection: Yes normal to inspection and No distended Palpation (GI): Soft to palpation, not firm, nontender and No hepatosplenomegaly present Auscultation: normal bowel sounds : General: Yes no CVA tenderness Back/Spine/Pelvis: Back: no CVA tenderness Skin: General skin exam: elasticity normal, turgor normal and dry skin Neuro: General: patient oriented x3 Psych: Appearance: grossly normal Mental Status: mental status grossly normal Speech and movement: Normal speech and movement present Affect: normal affect Attitude: cooperative Thought process: Normal thought process present Thought content: Normal thought content present Insight: Good insight present (Psych) Judgement: Good judgement present (Psych) Course Course Course Narrative: 85-year-old female with past medical history of hypertension, hyperlipidemia, embolic stroke is here today for in med no abdominal pain and discomfort. Patient reports that her pain has been in the middle of abdomen reports that it has diffuse, not feeling like pain but more like tenderness. Patient does not reports that the pain is affected by anything she drinks or eat. Patient denies any nausea or vomiting. Patient denies any melena, hematochezia, unintentional weight loss or ribbon like stools. Patient denies any dyspepsia, dysphagia or odynophagia. Patient reports that her pain come and go. Her last bowel movement this morning and was normal. Patient reports that she has been moving her bowels normal without feeling like she does not empty completely. Patient denies any diarrhea. Reports to have a colonoscopy done in 2019 and February that showed tubular adenoma without high-grade dysplasia or carcinoma, diverticulosis and internal hemorrhoids. Patient denies any chest pain, SOB, palpitation, urinary symptoms. We will check her labs, CBC, CMP, lipase, CT scan with contrast to rule out diverticulitis, IBD. Reevaluation(s) Reevaluation #1: Labs unremarkable, CT scan negative for any acute processes. Diverticulosis and constipation found. Will send her home with stool softener and fiber supplement. She can follow-up with her GI specialist and PCP. Incidental finding of ovarian cyst bilaterally largest measuring 4.2 x 4.6 cm on the right. Will recommend professor of art history consultation. MDM - Abdominal Pain Lab Data Result diagrams: 02/17/21 12:49 02/17/21 12:49 Labs: Lab Results 02/17/21 02/17/21 Range/Units 12:49 12:49 WBC 9.0 (4.8-10.8) X10*3/uL RBC 4.41 (4.20-5.50) X10*6/uL Hgb 13.7 (12.0-16.0) g/dl Hct 41.4 (37.0-47.0) % MCV 93.9 (80.0-98.0) fL MCH 31.1 (27.0-33.0) pg MCHC 33.1 (31.0-35.0) g/dl RDW 13.0 (11.0-16.0) % Plt Count 276 (160-400) X10*3/uL MPV 9.8 (9.4-12.3) fL Immature Gran % (Auto) 0.2 (0.0-0.4) % Neut % (Auto) 77.4 H (45-73) % Lymph % (Auto) 15.5 L (20-40) % [place] % (Auto) 6.0 (2-11) % Eos % (Auto) 0.7 (0-4) % Baso % (Auto) 0.2 (0-2) % Lymph # (Auto) 1.4 (1.2-4.9) X10*3/uL [place] # (Auto) 0.5 (0.1-1.2) X10*3/uL Eos # (Auto) 0.1 (0.0-0.4) X10*3/uL Baso # (Auto) 0.0 (0.0-0.2) X10*3/uL Abs Immat Gran (auto) 0.02 (0.00-0.03) X10*3/uL Absolute Neuts (auto) 7.0 (2.0-8.3) x10*3/uL Absolute Nucleated RBC 0.000 (0.0-0.012) X10*3/uL Nucleated RBC % (auto) 0.0 (0.0-0.2) /100WBC Sodium 141 (135-145) mmol/L Potassium 4.5 (3.3-5.1) mmol/L Chloride 109 H (96-108) mmol/L Carbon Dioxide 23 (22-29) mmol/L Anion Gap 14 (12-20) BUN 21 H (9-16) mg/dL Creatinine 0.74 (0.5-1.4) mg/dL Estim Creat Clear Calc 49.7 Estimated GFR > 60 Random Glucose 116 H (60-115) mg/dL Calcium 10.0 (8.4-10.2) mg/dL Total Bilirubin 0.6 (0.0-1.0) mg/dL Direct Bilirubin 0.3 (0.0-0.5) mg/dL AST 20 (5-31) U/L ALT 18 (0-31) U/L Alkaline Phosphatase 77 (39-117) U/L Total Protein 6.5 (6.5-8.0) g/dL Albumin 4.1 (3.5-5.0) g/dL Lipase 52 (8-78) U/L Imaging Data CT scan - abdomen: Attestation: I personally reviewed and interpreted this imaging study as follows: Radiologist's impression: FINDINGS: LUNG BASES: The visualized lung bases are unremarkable.? LIVER, GALLBLADDER, AND BILIARY TREE: The liver is normal in size, shape, and attenuation. No focal hepatic lesion or biliary ductal dilatation is present. The gallbladder is unremarkable with no evidence of radiopaque gallstones, gallbladder wall thickening, or obvious pericholecystic inflammatory changes.? PANCREAS: Unremarkable.? SPLEEN: Unremarkable.? ADRENAL GLANDS: Unremarkable.? KIDNEYS AND URETERS: There are bilateral renal cysts. Largest cyst measures 3 cm in the upper pole of the right kidney. There is a 0.9 cm cyst with single septation and Hounsfield units postcontrast measure 20 suggestive of the complex cyst, probably a Bosniak type II cyst. The remainder of the renal cysts represent simple cysts. Kidneys are otherwise unremarkable. No imaging follow-up needed. BLADDER: Unremarkable.? GASTROINTESTINAL TRACT: There is diverticulosis of the colon. No evidence of diverticulitis is seen. There is stool throughout the colon. Small and large bowel is otherwise unremarkable. The appendix is unremarkable. The stomach is unremarkable.? ABDOMINAL WALL: No significant hernia is appreciated.? LYMPH NODES: Normal. VASCULAR: Unremarkable. PELVIC VISCERA: There is a 4.2 x 4.6 cm right ovarian cyst. There is a 1.6 x 1.8 cm left ovarian cyst. OSSEOUS STRUCTURES: There are degenerative changes of the spine and scoliosis. Discharge Plan Discharge Clinical Impression: Abdominal pain, Constipation Patient Disposition: Home, Self-Care Instructions: Constipation (ED), Diverticulosis (ED), High Fiber Diet (ED) Additional Instructions: You were seen here today for abdominal pain. Your labs are negative for any of normal findings. You CT scan shows that you have diverticulosis and constipation. You will be sent home with script for fiber supplement cold Citrucel. Please take that with full glass of water every morning after breakfast. You will be also sent home with stool softener, please take that every night at bedtime. You will be referred to patient day coordinator please follow-up with them regarding your diverticulosis and constipation. CT scan showed incidental finding of cysts on bilateral ovaries. Please follow-up with human services instructor. Prescriptions: New docusate sodium 100 mg capsule 100 mg PO BEDTIME Qty: 30 RF: 0 Fiber Laxative (methylcellulo) 500 mg tablet 500 mg PO DAILY Qty: 30 RF: 0 No Action simvastatin 10 mg tablet 1 tab PO BEDTIME RF: 0 aspirin [Aspirin Low Dose] 81 mg Tablet,Delayed Release (Dr/Ec) 81 mg PO DAILY RF: 0 lisinopril 5 mg tablet 1 tab PO DAILY RF: 0 atenolol 50 mg tablet 50 mg PO DAILY RF: 0 ondansetron 4 mg tablet,disintegrating 4 mg PO Q6-8H PRN (Reason: nausea and vomiting) Qty: 7 RF: 0 Referrals: Berto Belle MD [Primary Care Provider] - 1 week Sheron Alberto MD [Physician] - 10 days ( abdominal pain, constipation, diverticulosis) Benja Paredes MD [Physician] - 2 weeks ( Bilateral ovarian cysts) Interventions: ED Discharge Assessment Last Done: 02/17/21 17:12 Discharge Date/Time: 02/17/21 17:19 [facility] Past Medical History Medical History Chest pain Elevated cholesterol HTN (hypertension) Hx of thyroid cyst Surgical History Hx of cataract extraction Hx of excision of mass Social History Social History Alcohol intake: never Patient Tobacco Use Status: Never used Tobacco Use of substances other than those prescribed or required for medical reasons: No Advance Directives: Yes Advance Directives Information Provided: No Advance Directives on File: No
[2021-02-17] MEDS: 0.9 % Sodium Chloride 500 ML IV (12:49)
[2021-02-17 13:04] VITALS: BP 181/65; PULSE 65; RESP 16; O2SAT 99
[2021-02-17 13:04] LABS: MANUAL DIFF FLAG NO
[2021-02-17 13:08] LABS: Basophils Percent Auto 0.2 % (0-2); Eosinophils Absolute Auto 0.1 X10*3/uL (0.0-0.4); Eosinophils Percent Auto 0.7 % (0-4); Hematocrit 41.4 % (37.0-47.0); Hemoglobin 13.7 g/dl (12.0-16.0); Imm Gran Abs Auto 0.02 X10*3/uL (0.00-0.03); Imm Gran Pct Auto 0.2 % (0.0-0.4); Lymphocytes Absolute Auto 1.4 X10*3/uL (1.2-4.9); Lymphocytes Percent Auto 15.5 % (20-40); Mean Corpuscular HGB Conc 33.1 g/dl (31.0-35.0); Mean Corpuscular Hemoglobin 31.1 pg (27.0-33.0); Mean Corpuscular Volume 93.9 fL (80.0-98.0); Mean Platelet Volume 9.8 fL (9.4-12.3); Monocytes Absolute Auto 0.5 X10*3/uL (0.1-1.2); Neutrophils Percent Auto 77.4 % (45-73); Platelet Count 276 X10*3/uL (160-400); Red Blood Count 4.41 X10*6/uL (4.20-5.50)
[2021-02-17 13:28] LABS: Alanine Aminotransferase 18 U/L (0-31); Albumin Level 4.1 g/dL (3.5-5.0); Alkaline Phosphatase 77 U/L (39-117); Anion Gap 14 (12-20); Aspartate Amino Transferase 20 U/L (5-31); Bilirubin Direct 0.3 mg/dL (0.0-0.5); Bilirubin Total 0.6 mg/dL (0.0-1.0); Blood Urea Nitrogen 21 mg/dL (9-16); Carbon Dioxide 23 mmol/L (22-29); Chloride 109 mmol/L (96-108); Creatinine Clr Calc Pharmacy 49.7; Estimated Glomerular Filt Rate > 60; Glucose Random 116 mg/dL (60-115); Lipase 52 U/L (8-78); Potassium 4.5 mmol/L (3.3-5.1); Sodium 141 mmol/L (135-145); Total Protein 6.5 g/dL (6.5-8.0)
[2021-02-17] MEDS: iohexoL 350 MG/ML 100 ML INFUS..BTL IV (15:19)
[2021-02-17] MEDS: Docusate Sodium 100 MG CAPSULE PO (16:58)
== END 2021-02-17 17:19 | disposition home or self-care (01) ==
PROVIDERS: Nurse Practitioner Family; Emergency Provider Emergency Medicine; PCP Internal Medicine
DX: R10.9 Unspecified abdominal pain (principal); K59.00 Constipation, unspecified; I10 Essential (primary) hypertension; E78.5 Hyperlipidemia, unspecified
CPT/HCPCS: 36415; 74177; 80048; 80076; 83690; 85025; 96360; 99284; Q9967

== ENCOUNTER 2021-02-20 11:30 | Outpatient (REF) | payer OTHER, SELFPAY ==
[2021-02-20 13:46] LABS: MANUAL DIFF FLAG NO
[2021-02-20 13:57] LABS: Basophils Percent Auto 0.3 % (0-2); Eosinophils Absolute Auto 0.1 X10*3/uL (0.0-0.4); Eosinophils Percent Auto 0.9 % (0-4); Hematocrit 42.1 % (37.0-47.0); Hemoglobin 13.9 g/dl (12.0-16.0); Imm Gran Abs Auto 0.04 X10*3/uL (0.00-0.03); Imm Gran Pct Auto 0.4 % (0.0-0.4); Lymphocytes Absolute Auto 2.4 X10*3/uL (1.2-4.9); Lymphocytes Percent Auto 23.9 % (20-40); Mean Platelet Volume 10.5 fL (9.4-12.3); Monocytes Absolute Auto 0.8 X10*3/uL (0.1-1.2); Monocytes Percent Auto 8.5 % (2-11); Neutrophils Absolute Auto 6.5 x10*3/uL (2.0-8.3); Platelet Count 339 X10*3/uL (160-400); Red Blood Count 4.48 X10*6/uL (4.20-5.50); White Blood Count 9.9 X10*3/uL (4.8-10.8)
[2021-02-20 14:18] LABS: Alanine Aminotransferase 19 U/L (0-31); Albumin Level 4.3 g/dL (3.5-5.0); Alkaline Phosphatase 85 U/L (39-117); Anion Gap 15 (12-20); Aspartate Amino Transferase 18 U/L (5-31); Bilirubin Total 0.6 mg/dL (0.0-1.0); Blood Urea Nitrogen 20 mg/dL (9-16); C Reactive Protein 0.11 mg/dL (< or = 0.50); Calcium 10.2 mg/dL (8.4-10.2); Carbon Dioxide 23 mmol/L (22-29); Chloride 104 mmol/L (96-108); Estimated Glomerular Filt Rate > 60; Glucose Random 100 mg/dL (60-115); Lipase 57 U/L (8-78); Potassium 4.2 mmol/L (3.3-5.1); Sodium 138 mmol/L (135-145); Total Protein 6.8 g/dL (6.5-8.0)
== END 2021-02-20 11:31 | disposition home or self-care (01) ==
LOC: HO.10HDL 11:30
PROVIDERS: Visit Provider Internal Medicine
DX: R10.9 Unspecified abdominal pain (principal)
CPT/HCPCS: 36415; 80053; 83690; 85025; 86140

== ENCOUNTER 2021-03-08 08:12 | Outpatient (REF) | payer OTHER, SELFPAY | END 2021-03-08 08:13 | disposition home or self-care (01) | LOC: HO.HMGCX 08:12 | PROVIDERS: PCP Internal Medicine; Visit Provider Internal Medicine Endocrinology, Diabetes & Metabolism | DX: Z13.89 Encounter for screening for other disorder (principal) ==

== ENCOUNTER 2021-03-19 11:27 | Outpatient (REF) | payer OTHER, SELFPAY ==
[2021-03-19 14:49] LABS: TSH reflex Free T4 0.11 uIU/mL (0.32-4.0)
[2021-03-19 15:05] LABS: Folate 12.2 ng/mL (> or = 4.0); Vitamin B12 526 pg/mL (200-900)
[2021-03-19 15:28] LABS: Free T4 (Free Thyroxine) 1.45 ng/dL (0.71-1.85)
[2021-03-23 15:37] LABS: Vitamin D 25-OH, D2 <4 ng/mL; Vitamin D 25-OH, D3 30 ng/mL; Vitamin D 25-OH, Total 30 ng/mL (30-100)
== END 2021-03-19 11:28 | disposition home or self-care (01) ==
LOC: HO.LAB 11:27
PROVIDERS: PCP Internal Medicine; Referring Provider Internal Medicine; Visit Provider Nurse Practitioner Family
DX: K57.90 Diverticulosis of intestine, part unspecified, without perforation or abscess without bleeding (principal); K59.01 Slow transit constipation; R19.7 Diarrhea, unspecified; E55.9 Vitamin D deficiency, unspecified
CPT/HCPCS: 36415; 82306; 82607; 82746; 84439; 84443

== ENCOUNTER 2021-04-10 09:23 | Outpatient (REF) | payer OTHER, SELFPAY ==
[2021-04-10 11:35] LABS: Free T4 (Free Thyroxine) 1.17 ng/dL (0.71-1.85); Thyroid Stimulating Hormone 0.15 uIU/mL (0.32-4.0)
== END 2021-04-10 09:24 | disposition home or self-care (01) ==
LOC: HO.LAB 09:23
PROVIDERS: PCP Internal Medicine; Visit Provider Internal Medicine Endocrinology, Diabetes & Metabolism
DX: R94.6 Abnormal results of thyroid function studies (principal)
CPT/HCPCS: 36415; 84439; 84443

== ENCOUNTER 2021-11-14 12:02 | Outpatient (REF) | payer OTHER, SELFPAY ==
[2021-11-14 13:42] LABS: MANUAL DIFF FLAG NO
[2021-11-14 13:52] LABS: Basophils Percent Auto 0.4 % (0-2); Eosinophils Absolute Auto 0.2 X10*3/uL (0.0-0.4); Eosinophils Percent Auto 2.1 % (0-4); Hemoglobin 13.5 g/dl (12.0-16.0); Imm Gran Abs Auto 0.04 X10*3/uL (0.00-0.03); Imm Gran Pct Auto 0.5 % (0.0-0.4); Lymphocytes Absolute Auto 1.4 X10*3/uL (1.2-4.9); Lymphocytes Percent Auto 18.7 % (20-40); Mean Corpuscular HGB Conc 33.8 g/dl (31.0-35.0); Mean Corpuscular Hemoglobin 32.2 pg (27.0-33.0); Mean Corpuscular Volume 95.5 fL (80.0-98.0); Mean Platelet Volume 10.2 fL (9.4-12.3); Monocytes Absolute Auto 0.7 X10*3/uL (0.1-1.2); Monocytes Percent Auto 9.1 % (2-11); Neutrophils Absolute Auto 5.1 x10*3/uL (2.0-8.3); Neutrophils Percent Auto 69.2 % (45-73); Platelet Count 319 X10*3/uL (160-400); Red Blood Count 4.19 X10*6/uL (4.20-5.50); Red Cell Distribution Width 12.4 % (11.0-16.0); White Blood Count 7.3 X10*3/uL (4.8-10.8)
[2021-11-14 14:19] LABS: Alanine Aminotransferase 16 U/L (0-31); Albumin Level 4.1 g/dL (3.5-5.0); Alkaline Phosphatase 83 U/L (39-117); Anion Gap 18 (12-20); Aspartate Amino Transferase 21 U/L (5-31); Bilirubin Total 0.5 mg/dL (0.0-1.0); Blood Urea Nitrogen 20 mg/dL (9-16); Calcium 9.7 mg/dL (8.4-10.2); Carbon Dioxide 23 mmol/L (22-29); Chloride 103 mmol/L (96-108); Estimated Glomerular Filt Rate > 60; Glucose Random 82 mg/dL (60-115); Lipase 42 U/L (8-78); Potassium 4.7 mmol/L (3.3-5.1); Sodium 139 mmol/L (135-145); Total Protein 6.9 g/dL (6.5-8.0)
== END 2021-11-14 12:03 | disposition home or self-care (01) ==
LOC: HO.10HDL 12:02
PROVIDERS: Visit Provider Internal Medicine
DX: R10.9 Unspecified abdominal pain (principal); I10 Essential (primary) hypertension; E78.00 Pure hypercholesterolemia, unspecified
CPT/HCPCS: 36415; 80053; 83690; 85025

== ENCOUNTER → 2021-11-28 09:08 | Outpatient (REF) | payer OTHER, SELFPAY ==
--- NOTE | ~2021-11-28 | NM_ITS ---
EXAMINATION: NM THYROID UPTAKE AND SCAN CLINICAL INFORMATION: Thyrotoxicosis. COMPARISON: Thyroid ultrasound done on 01/22/2021. TECHNIQUE: Following the oral administration of 200 microcuries of I-123 sodium iodide, thyroid uptake was performed and expressed as a percentage of the administrated dose. Gamma scintillation camera images of the thyroid in the anterior and right and left anterior oblique views were obtained using a pinhole collimator following intravenous administration of 10 mCi Tc-99m pertechnetate. The radiotracer was injected through left antecubital superficial vein without complications. FINDINGS: The uptake is 5.1% at 2 hours and 19.0% at 24 hours. (Normal radioiodine uptake at 4-6 hours is 5-15%, and at 24 hours is 10% to 30%). Concordant with the prior ultrasound study, the left lobe of the thyroid gland is asymmetrically enlarged with superimposed cold nodule at mid to inferior pole of. Specific note is also made of presence of a hot nodule at the inferior pole of the left lobe of the thyroid gland. Relatively warm nodule is noted within the remainder of the enlarged left lobe. The right lobe of the thyroid gland is significantly smaller. 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 NM/NM thyroid w uptake IMPRESSION: 1. Normal radioiodine uptake. 2. 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
== END ==
LOC: HO.NUCMED 09:08
PROVIDERS: PCP Internal Medicine; Visit Provider Internal Medicine Endocrinology, Diabetes & Metabolism
DX: E05.90 Thyrotoxicosis, unspecified without thyrotoxic crisis or storm (principal)
CPT/HCPCS: 78014; A9512; A9516

== ENCOUNTER → 2022-03-20 09:42 | Outpatient (BNVA) | payer OTHER, SELFPAY | PROVIDERS: PCP Internal Medicine; Referring Provider Internal Medicine; Visit Provider Nurse Practitioner Family | DX: Z13.89 Encounter for screening for other disorder (principal) ==

== ENCOUNTER 2022-06-24 12:05 | Inpatient (IN) | payer OTHER, SELFPAY ==
[2022-06-24] VITALS (7 sets, daily range): BP systolic 141–218; BP diastolic 62–96; PULSE 55–70; RESP 14–18; TEMP 36.4–37.2; O2SAT 94–100; BMI 26.7; BMI 25.3
--- NOTE | ~2022-06-24 | XR_ITS ---
EXAMINATION: XR CHEST CLINICAL INFORMATION: Mental status change COMPARISON: Chest x-ray December 2020 TECHNIQUE: Frontal view of the chest was obtained. FINDINGS: Lungs clear. Arterial calcification of the dorsal aorta. Cardiac mediastinal silhouette otherwise normal. Spondylosis of the dorsal spine. XR/XR chest 1V IMPRESSION: No acute pulmonary disease.
--- NOTE | ~2022-06-24 | CT_ITS ---
EXAMINATION: CT HEAD WITHOUT CONTRAST (STROKE PROTOCOL) CLINICAL INFORMATION: Stroke protocol. Slurred speech. COMPARISON: CT brain 07/17/2020 TECHNIQUE: Contiguous axial imaging was performed from the skull base to vertex without intravenous administration of contrast. This CT examination was performed using dose optimization techniques as appropriate, variously including the following: *Automated exposure control *Adjustment of mA and/or kV according to patient size (this includes techniques or standardized protocols for targeted exams where dose is matched to indication/reason for exam; i.e. extremities or head) *Use of iterative reconstruction technique DLP: 501 mGy-cm FINDINGS: There is no acute intra-axial, extra-axial bleed, mass, edema or midline shift. 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 No acute infarction evolution seen. There is no edema. The lateral ventricles are symmetrical but enlarged with mild prominence of cortical sulci. The [place] to white matter difference is maintained normal. Bone windows reveal no calvarial abnormality. Bilateral paranasal sinuses and mastoid air cells are well-aerated. There is no scalp soft tissue abnormality. CT/CT head for stroke IMPRESSION: No acute intracranial process seen. This critical result was discussed with Dr. Jauregui at 1233 hours on 06/24/2022. It was ascertained that the content and urgency of the report was understood at the time of direct communication.
--- NOTE | ~2022-06-24 | XR_ITS ---
EXAMINATION: XR ABDOMEN KUB CLINICAL INDICATION: Abdominal pain COMPARISON: None available. TECHNIQUE: AP view of the abdomen. FINDINGS: There is scattered stool and gas seen throughout the colon without distention. The small bowel loops unremarkable. There is excreted urinary contrast in the kidney pelvises and ureters and the bladder. No hydronephrosis or filling defects seen. There is no organomegaly. There is minimal levoscoliosis. There are degenerative disc changes throughout lumbar spine with lateral spondylosis. No lytic or sclerotic process seen. XR/XR KUB IMPRESSION: 1. Mild constipation. No acute process seen. 2. Mild levoscoliosis with degenerative disc changes and spondylosis in the lumbar spine.
--- NOTE | ~2022-06-24 | CT_ITS ---
EXAMINATION: CTA OF THE HEAD AND NECK CLINICAL INFORMATION: Confusion. COMPARISON: Thyroid ultrasound report from 01/22/2021. TECHNIQUE: Test bolus sequences followed by intravenous administration 70 mL of Omnipaque 350. Helical imaging was performed in the axial plane from the mediastinum to the skull vertex. Delayed postcontrast imaging of the head was also performed. The data was processed at the cytotechnologist/histotechnologist's workstation for generation of MIP sequences. Three-dimensional volume rendered reformatted images were also generated at an offline 3-D workstation. Stenoses are assessed in accordance with NASCET criteria unless otherwise indicated. This CT examination was performed using dose optimization techniques as appropriate, variously including the following: *Automated exposure control *Adjustment of mA and/or kV according to patient size (this includes techniques or standardized protocols for targeted exams where dose is matched to indication/reason for exam; i.e. extremities or head) *Use of iterative reconstruction technique DLP: 1327 mGy-cm. FINDINGS: CTA neck: The imaged aortic arch and origins of the great vessels are normal. The common carotid arteries are widely patent. The carotid bifurcations are relatively normal with mild atherosclerotic wall calcifications at the origins of the ICAs. The remainder of the cervical internal carotid arteries are normal. The vertebral arteries opacify normally and are of normal caliber. A heterogeneous 5.4 x 4.3 cm nodule with areas of internal low density and calcification arises from the left thyroid lobe, also described on prior dedicated imaging with sonography. The trachea is mildly deviated to the right of midline at this level. There is what may represent a 1 cm retention cyst along the floor of the right vallecula. There is a homogeneous 1.8 x 2.1 x 1.1 cm soft tissue lesion in the midline between the thyroid cartilage and hyoid bone with partial extension into the preepiglottic fat space. Multilevel cervical spondylosis noted, most significant at the C5-C6 level. There is a leftward curvature of the cervical spine. Hypertrophic facet arthropathy contributes to foraminal encroachment at various levels. The imaged portions of the lungs are clear. CTA head: The intradural vertebral arteries and basilar artery are normal. The posterior cerebral arteries are widely patent. The internal carotid arteries are of normal caliber. The ZARI and MCA vascular complexes bilaterally are normal. There is no abnormal parenchymal or leptomeningeal enhancement. Encephalomalacia again visible in the right frontal-insular lobe region. The venous sinuses opacify normally. CT/CT angio head neck IMPRESSION: No vascular occlusion or significant stenosis. Heterogeneous 5.4 cm left thyroid lobe nodule has been assessed on prior ultrasound and nuclear medicine imaging. 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 No acute intracranial hemorrhage or territorial infarction. Chronic encephalomalacia in the right frontal-insular lobe region. Imaging findings reported to Dr. Jauregui at 3:50 PM on 06/24/2022.
--- NOTE | ~2022-06-24 | MR_ITS ---
MRI OF THE BRAIN WITHOUT IV CONTRAST INDICATION: Stroke. COMPARISON: CTA head and neck 06/24/2022. TECHNIQUE: Multiplanar multisequence MR imaging of the brain was obtained without IV contrast. FINDINGS: There is no hydrocephalus, extra-axial surface collection, or herniation. There is mild chronic microangiopathy. The major flow voids at the skull base are preserved. There is no acute infarct on diffusion-weighted imaging. There is no intracranial hemorrhage on the gradient recalled echo acquisition. The midline structures are normal. The cerebellar tonsils are normally positioned. The cerebellum and brainstem are normal. The craniocervical junction is normal. There is a nonspecific 1.2 cm focus of bone marrow replacement within the left frontal calvarium just anterior to the left coronal suture on image 20 of series 7 that can be further assessed with a whole-body bone scan. The visualized soft tissues are unremarkable. There is a small left mastoid effusion. MR/MR head/brain wo con IMPRESSION: - No acute intracranial findings. No acute infarcts. 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 There is mild chronic microangiopathy. - There is a nonspecific 1.2 cm focus of bone marrow replacement within the left frontal calvarium just anterior to the left coronal suture on image 20 of series 7 that can be further assessed with a whole-body bone scan.
--- NOTE | 2022-06-24 12:12 | ECG_ITS ---
Test Reason : stroke Blood Pressure : / mmHG Vent. Rate : 067 BPM Atrial Rate : 067 BPM P-R Int : 138 ms QRS Dur : 092 ms QT Int : 392 ms P-R-T Axes : 050 -10 028 degrees QTc Int : 414 ms Normal sinus rhythm Minimal voltage criteria for LVH, may be normal variant ( Kiran product ) Borderline ECG When compared with ECG of 22-DEC-2020 08:30, No significant change was found Referred By: Magalis Jauregui Electronically Signed By:INES AGRAWAL
--- NOTE | 2022-06-24 12:14 | ED.AMS ---
HPI - Altered Mental Status General Chief Complaint: Stroke Stated Complaint: Stroke? AMS Time Seen by Provider: 06/24/22 12:11 Source: patient and EMS Mode of arrival: EMS Limitations: no limitations History of Present Illness HPI narrative: 86-year-old female came in by ambulance as a stroke alert. Patient went out with her friend to have breakfast when she suddenly started to have moment of confusion and slurred speech, friends called 911 patient found to be mildly confused but with no deficit or slurred speech. Patient was transported to the hospital in the ED patient is not confused fully oriented x3 with no neurological deficit. Related Data Home Medications Medication Instructions Recorded Confirmed simvastatin 10 mg tablet 1 tab PO BEDTIME 02/14/20 06/24/22 aspirin 81 mg tablet,delayed 81 mg PO MOWEFR@0900 10/30/21 06/24/22 release (Carlotta Low Dose Aspirin) atenolol 50 mg tablet 50 mg PO BID 10/30/21 06/24/22 chlorhexidine gluconate 0.12 % 15 ml PO BID 06/24/22 06/24/22 mouthwash lisinopril 20 mg tablet 20 mg PO DAILY 06/24/22 06/24/22 Previous Rx's Medication Instructions Recorded methylcellulose (laxative) 500 mg 500 mg PO DAILY #90 tabs 03/20/22 tablet (Citrucel) sennosides 8.6 mg tablet (Natural 8.6 mg PO BEDTIME constipation #90 03/20/22 Senna Laxative) tabs trazodone 100 mg tablet 100 mg PO BEDTIME for insomnia #90 04/08/22 tabs Allergies Allergy/AdvReac Type Severity Reaction Status Date / Time No Known Allergies Allergy Verified 03/20/22 09:59 [No Known Allergies*] Review of Systems Review of Systems: All other systems are reviewed and are negative Constitutional: Reports as per HPI and Reports no additional constitutional complaints Eyes: Reports as per HPI and Reports no additional eye complaints Reports system reviewed and no additional complaints, except as documented Cardiovascular: Reports as per HPI and Reports no additional cardiovascular complaints Respiratory: Reports as per HPI and Reports no additional respiratory complaints Gastrointestinal: Reports as per HPI and Reports no additional gastrointestinal complaints Genitourinary: Reports no additional female genitourinary complaints Musculoskeletal: Reports no additional musculoskeletal complaints Skin/Breast: Reports system reviewed and no additional complaints, except as docu Psychiatric: Reports no additional psychiatric complaints Endocrine: Reports no additional endocrine complaints Hematologic/Lymphatic: Reports no additional hematologic/lymphatic complaints Allergic/Immunologic: Reports no additional allergic/immunologic complaints Reports system reviewed and no additional complaints, except as documented and Reports Abnormal speech present [facility] Past Medical History Medical History Acute adjustment disorder with anxiety Chest pain Elevated cholesterol HTN (hypertension) Hx of thyroid cyst Primary insomnia Surgical History Hx of cataract extraction Hx of colonoscopy Hx of excision of mass Family History Family History Brother Eye cancer Social History Social History Alcohol intake: never Patient Tobacco Use Status: Never used Tobacco Advance Directives: No Advance Directives Information Provided: Yes Physical Exam ED Vital Signs: Vital Signs - 24 hr 06/24/22 12:26 06/24/22 13:59 06/24/22 15:06 Temperature 97.9 F 98.3 F Pulse Rate 65 65 Respiratory Rate 16 18 Blood Pressure 205/74 H 155/62 H 198/69 H Pulse Oximetry 98 100 Oxygen Delivery Method Room Air Room Air BMI result Body Mass Index 26.7 Vital signs have been reviewed as appeared to be correct. Blood pressure normal. Heart rate normal. Respiration rate normal. Temperature normal. Oxygen saturation normal. Appearance: Alert. Oriented X3. No acute distress. Head: Normal external exam. Normocephalic. Atraumatic. No Gage signs noted. No raccoon eyes noted Eyes: PERRLA. EOMI. Conjunctiva and sclera normal. Eyelids normal. ENT: TM's Normal. Pharynx normal. Uvula midline. Moist mucous membranes. No trismus noted. No drooling noted. No muffled voice noted. Neck: Normal inspection. Neck supple. FROM. No adenopathy. Thyroid Normal. No meningeal signs. No neck mass noted. CVS: Normal heart rate and rhythm. Heart sound normal. No murmurs noted. Pulses normal throughout. Respiratory: No respiratory distress. Painless inspiration. Breath sounds normal. No wheezes/rales/rhonchi noted. Chest nontender. No accessory muscle usage noted or decreased air movement noted. Abdomen: Soft and nontender. Bowel sounds normal in all 4 quadrants. No distention noted. No organomegaly noted. No visible injury noted. Back: No CVA tenderness. Full range of motion noted. Skin: Skin warm and dry. Normal skin color. Normal skin turgor. No rashes/lesions/lacerations noted. Extremities: No lower extremity edema. Extremities exhibit normal range of motion. Extremities nontender. Neuro: Oriented X 3. Cranial nerve exam: II-XII are grossly intact No motor deficit. No sensory deficit. Reflexes normal. NIH Stroke Scale Internal: Initial- Upon Arrival Time: 12:17 Level of Consciousness: Alert Level of Consciousness Questions: Answers both questions correctly Level of Consciousness Commands: Performs both tasks correctly Best Gaze: Normal Visual: No visual loss Facial Palsy: Normal Motor Arm (Right): No drift Motor Arm (Left): No drift Motor Leg (Right): No drift Motor Leg (Left): No drift Limb Ataxia: Absent Sensory: Normal Best Language: Mild to moderate aphasia Dysarthia: Normal Extinction and Inattention: No abnormality Score: 1 Course Course Course Narrative: 86-year-old female came in with expressive aphasia and confusion otherwise unremarkable neuro exam, patient's symptoms started at 11:30 a.m., CT head shows no acute intracranial pathology, because the low NIH score and the minority of the symptoms patient also presented with hypertension therefore patient is not a candidate for tPA. CT angio showing no acute major vessel inclusion therefore patient is not candidate for mechanical thrombectomy either. Patient will get admitted administer aspirin in the emergency department. Medications Administered Discontinued Medications Generic Name Dose Route Start Last Admin Trade Name Bhumi PRN Reason Stop Dose Admin Amlodipine Besylate 5 mg 06/24/22 13:22 06/24/22 14:05 Amlodipine Besylate 5 Mg Tablet PO 06/24/22 13:23 Not Given ONCE ONE Protocol Amlodipine Besylate 5 mg 06/24/22 15:14 06/24/22 15:32 Amlodipine Besylate 5 Mg Tablet PO 06/24/22 15:15 5 mg ONCE ONE Administration Protocol Aspirin 81 mg 06/24/22 14:58 06/24/22 15:07 Aspirin Enteric Coated 81 Mg Tablet. PO 06/24/22 14:59 81 mg ONCE ONE Administration Iohexol 70 ml 06/24/22 13:47 06/24/22 13:48 Iohexol 350 Mg/Ml 75 Ml Infus..Btl IV 06/24/22 13:48 70 ml ONCE ONE Administration Medical Decision Making Differential Diagnosis Differential Diagnoses: The differential diagnosis associated with the presentation includes (Electrolytes abnormalities, dehydration, end-organ damage, CVA, hypoglycemia.) Admission/Observation Consideration of admission/observation: Escalation of care including admission/observation considered Consult Healthcare Provider Management of the patient was discussed with: Hospitalist (Dr. Caro) and [employer] (Dr. Stover.) Lab Data MDM Lab Attestation statement: I reviewed the patient's lab results. 06/24/22 12:35 06/24/22 12:35 Labs: Lab Results 06/24/22 06/24/22 06/24/22 Range/Units 12:18 12:26 12:35 WBC 10.5 (4.8-10.8) X10*3/uL RBC 4.45 (4.20-5.50) X10*6/uL Hgb 13.7 (12.0-16.0) g/dl Hct 41.0 (37.0-47.0) % MCV 92.1 (80.0-98.0) fL MCH 30.8 (27.0-33.0) pg MCHC 33.4 (31.0-35.0) g/dl RDW 12.4 (11.0-16.0) % Plt Count 272 (160-400) X10*3/uL MPV 9.7 (9.4-12.3) fL Immature Gran % (Auto) 0.2 (0.0-0.4) % Neut % (Auto) 73.2 H (45-73) % Lymph % (Auto) 18.2 L (20-40) % [place] % (Auto) 7.2 (2-11) % Eos % (Auto) 0.8 (0-4) % Baso % (Auto) 0.4 (0-2) % Lymph # (Auto) 1.9 (1.2-4.9) X10*3/uL [place] # (Auto) 0.8 (0.1-1.2) X10*3/uL Eos # (Auto) 0.1 (0.0-0.4) X10*3/uL Baso # (Auto) 0.0 (0.0-0.2) X10*3/uL Abs Immat Gran (auto) 0.02 (0.00-0.03) X10*3/uL Absolute Neuts (auto) 7.7 (2.0-8.3) x10*3/uL Absolute Nucleated RBC 0.000 (0.0-0.012) X10*3/uL Nucleated RBC % (auto) 0.0 (0.0-0.2) /100WBC PT (10.0-13.1) SEC Whole Blood PT 12.1 (11.1-13.5) sec INR (0.9-1.1) Whole Blood INR 1.0 (0.9-1.1) APTT (26.0-36.4) SEC Sodium (135-145) mmol/L Potassium (3.3-5.1) mmol/L Chloride (96-108) mmol/L Carbon Dioxide (22-29) mmol/L Anion Gap (12-20) BUN (9-16) mg/dL Creatinine (0.5-1.4) mg/dL Estim Creat Clear Calc Estimated GFR POC Glucose 115 (60-115) mg/dL Random Glucose (60-115) mg/dL Calcium (8.4-10.2) mg/dL Total Creatine Kinase (26-140) U/L Troponin I High Sens (<3.5-17.0) ng/L 06/24/22 06/24/22 06/24/22 Range/Units 12:35 12:35 12:35 WBC (4.8-10.8) X10*3/uL RBC (4.20-5.50) X10*6/uL Hgb (12.0-16.0) g/dl Hct (37.0-47.0) % MCV (80.0-98.0) fL MCH (27.0-33.0) pg MCHC (31.0-35.0) g/dl RDW (11.0-16.0) % Plt Count (160-400) X10*3/uL MPV (9.4-12.3) fL Immature Gran % (Auto) (0.0-0.4) % Neut % (Auto) (45-73) % Lymph % (Auto) (20-40) % [place] % (Auto) (2-11) % Eos % (Auto) (0-4) % Baso % (Auto) (0-2) % Lymph # (Auto) (1.2-4.9) X10*3/uL [place] # (Auto) (0.1-1.2) X10*3/uL Eos # (Auto) (0.0-0.4) X10*3/uL Baso # (Auto) (0.0-0.2) X10*3/uL Abs Immat Gran (auto) (0.00-0.03) X10*3/uL Absolute Neuts (auto) (2.0-8.3) x10*3/uL Absolute Nucleated RBC (0.0-0.012) X10*3/uL Nucleated RBC % (auto) (0.0-0.2) /100WBC PT 11.3 (10.0-13.1) SEC Whole Blood PT (11.1-13.5) sec INR 1.0 (0.9-1.1) Whole Blood INR (0.9-1.1) APTT 28.4 (26.0-36.4) SEC Sodium 138 (135-145) mmol/L Potassium 4.2 (3.3-5.1) mmol/L Chloride 108 (96-108) mmol/L Carbon Dioxide 20 L (22-29) mmol/L Anion Gap 14 (12-20) BUN 23 H (9-16) mg/dL Creatinine 0.86 (0.5-1.4) mg/dL Estim Creat Clear Calc 43.5 Estimated GFR > 60 POC Glucose (60-115) mg/dL Random Glucose 120 H (60-115) mg/dL Calcium 9.9 (8.4-10.2) mg/dL Total Creatine Kinase 68 (26-140) U/L Troponin I High Sens 5.2 (<3.5-17.0) ng/L Independent Interpretation I performed an independent interpretation of an: CT Scan (Head CT: No acute intracranial pathology.) Radiology Impression Discussion of test interpretation with radiology: I have reviewed the radiologist's reading. Critical Care Time Critical Care Time Critical Care Time: Yes Total Critical Care Time: 60 Attestation: I spent 60 minutes providing critical care service to the patient, this including time spent at the bedside to evaluate the patient, reassess the patient, monitoring vital signs, review labs, and radiographic studies, counseling the patient/family, discussing the case with consultants, disposition the patient. Discharge Plan Discharge Clinical Impression: Cerebrovascular accident, Expressive aphasia Patient Disposition: Admitted As Inpatient
[2022-06-24 12:25] LABS: Prothrombin Time Whole Bld POC 12.1 sec (11.1-13.5)
[2022-06-24 12:32] LABS: Glucose, Whole Blood 115 mg/dL (60-115)
[2022-06-24 12:39] LABS: MANUAL DIFF FLAG NO
[2022-06-24 12:41] LABS: Basophils Percent Auto 0.4 % (0-2); Eosinophils Absolute Auto 0.1 X10*3/uL (0.0-0.4); Eosinophils Percent Auto 0.8 % (0-4); Hemoglobin 13.7 g/dl (12.0-16.0); Imm Gran Abs Auto 0.02 X10*3/uL (0.00-0.03); Imm Gran Pct Auto 0.2 % (0.0-0.4); Lymphocytes Absolute Auto 1.9 X10*3/uL (1.2-4.9); Lymphocytes Percent Auto 18.2 % (20-40); Mean Corpuscular HGB Conc 33.4 g/dl (31.0-35.0); Mean Corpuscular Hemoglobin 30.8 pg (27.0-33.0); Mean Corpuscular Volume 92.1 fL (80.0-98.0); Mean Platelet Volume 9.7 fL (9.4-12.3); Monocytes Absolute Auto 0.8 X10*3/uL (0.1-1.2); Monocytes Percent Auto 7.2 % (2-11); Neutrophils Absolute Auto 7.7 x10*3/uL (2.0-8.3); Neutrophils Percent Auto 73.2 % (45-73); Platelet Count 272 X10*3/uL (160-400); Red Blood Count 4.45 X10*6/uL (4.20-5.50); Red Cell Distribution Width 12.4 % (11.0-16.0); White Blood Count 10.5 X10*3/uL (4.8-10.8)
[2022-06-24 12:49] LABS: Prothrombin Time 11.3 SEC (10.0-13.1)
[2022-06-24 12:52] LABS: Partial Thromboplastin Time 28.4 SEC (26.0-36.4)
[2022-06-24 12:53] LABS: Stroke Lab Use COMPLETE
[2022-06-24 12:54] LABS: Anion Gap 14 (12-20); Blood Urea Nitrogen 23 mg/dL (9-16); Calcium 9.9 mg/dL (8.4-10.2); Carbon Dioxide 20 mmol/L (22-29); Chloride 108 mmol/L (96-108); Creatinine Clr Calc Pharmacy 43.5; Estimated Glomerular Filt Rate > 60; Glucose Random 120 mg/dL (60-115); Potassium 4.2 mmol/L (3.3-5.1); Sodium 138 mmol/L (135-145)
[2022-06-24 13:02] LABS: Troponin-I High Sensitivity 5.2 ng/L (<3.5-17.0)
--- NOTE | 2022-06-24 13:03 | PC.NURSE ---
Pt continues to be altered, answering questions inappropriately. When asked pt's name she is stating [id number] . Continuously asking if she can leave, patient reminded that she cannot leave at this time.
[2022-06-24] MEDS: iohexoL 350 MG/ML 75 ML INFUS..BTL 70 ML IV (13:48)
--- NOTE | 2022-06-24 13:49 | PC.NURSE ---
friend at restaurant sent text to sister in law at 1135 that sx had just started. speech was altered, was doing non sensible things. baseline is axox3. lives alone, drives. wakes daily and goes to [place]. has diff sleeping but naps. latonya suspects hx of tia's.
--- NOTE | 2022-06-24 13:57 | PC.NURSE ---
back from ct. confused and struggles to follow simple commands. speech is clear but choice of words is wrong at times. states she feels fine and wants to go home . denies recent fall. no unilat neuro deficits. pt is calm. word searching for pen but eventually finds the word. Provder aware of improved BP.
[2022-06-24] MEDS: Aspirin Enteric Coated 81 MG TABLET.DR PO (15:07)
[2022-06-24] MEDS: amLODIPine Besylate 5 MG TABLET PO (15:32)
--- NOTE | 2022-06-24 15:42 | PHA.MEDREC ---
Pharmacy Consult ? Medication Reconciliation Pharmacy has completed the medication reconciliation. unable to get any information from patient, sister in law was also in room but did not know medications. Med rec completed per claim history.
--- NOTE | 2022-06-24 15:50 | P.HPHOSP_ITS ---
History of Present Illness Date of Service: 06/24/22 Chief Complaint: stroke 86-year-old woman presenting to the ER with complaints slurred speech and word- finding difficulty. Her [id number] was present during the interview and was able to give some history. Apparently the patient was out to breakfast at [facility] and seemed to be confused to the other attendance, she was her keys and she had knocked over some water. Manjit subsequently called and she was brought to the ER for further evaluation. The patient knows her name, date of , where she is but is unable to state the year and the time of day. She is noted to have aphasia with some dysarthria and no physical deficits at 1st examination. She also complained of some abdominal pain but no other symptoms. She was unable to remember much about what she had for breakfast but did state that she had been feeling fine the last couple a days and her [id number] stated that she had not heard her mention that she was feeling unwell. Her labs were all within acceptable limits, systolic blood pressure over 200s. Head and neck occlusion or stenosis. She was given a dose of aspirin and 2 doses of amlodipine while in the ER. She will be admitted for further management and treatment of acute stroke. Review of Systems Review of Systems: Yes Unobtainable due to mental status [facility] Medical History (Updated 06/24/22 @ 15:52 by Farnaz Brooks NP) Acute adjustment disorder with anxiety Chest pain Elevated cholesterol HTN (hypertension) Hx of thyroid cyst Primary insomnia Family History Brother Eye cancer Surgical History Hx of cataract extraction Hx of colonoscopy Hx of excision of mass Social History Alcohol intake: never Patient Tobacco Use Status: Never used Tobacco Advance Directives: No Advance Directives Information Provided: Yes Meds Allergies Allergy/AdvReac Type Severity Reaction Status Date / Time No Known Allergies Allergy Verified 03/20/22 09:59 [No Known Allergies*] Active Medications: Current Medications Acetaminophen (Acetaminophen 325 Mg Tablet) 650 mg PO Q6H PRN PRN Reason: Pain, Mild (Pain Scale 1-3) Aspirin (Aspirin 81 Mg Tab.Chew) 81 mg PO DAILY SANCHEZ Atorvastatin Calcium (Atorvastatin Calcium 80 Mg Tablet) 80 mg PO BEDTIME SANCHEZ Labetalol HCl (Labetalol Hcl 100 Mg/20 Ml Vial) 20 mg IVPUSH Q10M PRN PRN Reason: SBP>200 Ondansetron HCl (Ondansetron Hcl 4 Mg/2 Ml Vial) 4 mg IVPUSH Q8H PRN PRN Reason: Nausea and Vomiting Pharmacy Consult (Consult Rx Perform Med Rec) 1 each MISCELLANE ONCE PRN PRN Reason: Consult order Home Medications Medication Instructions Recorded Confirmed Last Taken Type simvastatin 10 mg tablet 1 tab PO BEDTIME 02/14/20 06/24/22 Unknown History aspirin 81 mg tablet,delayed 81 mg PO MOWEFR@0900 10/30/21 06/24/22 Unknown History release (Carlotta Low Dose Aspirin) atenolol 50 mg tablet 50 mg PO BID 10/30/21 06/24/22 Unknown History chlorhexidine gluconate 0.12 % 15 ml PO BID 06/24/22 06/24/22 Unknown History mouthwash lisinopril 20 mg tablet 20 mg PO DAILY 06/24/22 06/24/22 Unknown History Physical Exam Vital Signs and Narrative: Vital Signs: Last Vital Signs Temp 98.3 F 06/24/22 13:59 Pulse 65 06/24/22 13:59 Resp 18 06/24/22 13:59 BP 198/69 H 06/24/22 15:06 Pulse Ox 100 06/24/22 13:59 O2 Del Method Room Air 06/24/22 13:59 BMI result Body Mass Index 26.7 Appearing in no acute distress head is normocephalic atraumatic eyes pupils are PERRLA sclera is anicteric mouth throat mucous membranes are intact and moist neck is supple no lymphadenopathy, no JVD noted lung sounds are clear to auscultation heart regular rate rhythm, clear S1, S2 positive bowel sounds, abdomen is soft, nontender neuro patient is alert, oriented to self, , and place noted aphagia with mild dysarthria 5/5 strength to upper and lower extremities Results Labs 06/24/22 12:35 06/24/22 12:35 Labs: Laboratory Results - last 24 hr 06/24/22 06/24/22 06/24/22 12:18 12:26 12:35 MCV 92.1 MCH 30.8 MCHC 33.4 RDW 12.4 Plt Count 272 MPV 9.7 Immature Gran % (Auto) 0.2 Neut % (Auto) 73.2 H Lymph % (Auto) 18.2 L [place] % (Auto) 7.2 Eos % (Auto) 0.8 Baso % (Auto) 0.4 Lymph # (Auto) 1.9 [place] # (Auto) 0.8 Eos # (Auto) 0.1 Baso # (Auto) 0.0 Abs Immat Gran (auto) 0.02 Absolute Neuts (auto) 7.7 Absolute Nucleated RBC 0.000 Nucleated RBC % (auto) 0.0 PT Whole Blood PT 12.1 INR Whole Blood INR 1.0 APTT Anion Gap Estim Creat Clear Calc Estimated GFR POC Glucose 115 Random Glucose Calcium Total Creatine Kinase Troponin I High Sens 06/24/22 06/24/22 06/24/22 12:35 12:35 12:35 MCV MCH MCHC RDW Plt Count MPV Immature Gran % (Auto) Neut % (Auto) Lymph % (Auto) [place] % (Auto) Eos % (Auto) Baso % (Auto) Lymph # (Auto) [place] # (Auto) Eos # (Auto) Baso # (Auto) Abs Immat Gran (auto) Absolute Neuts (auto) Absolute Nucleated RBC Nucleated RBC % (auto) PT 11.3 Whole Blood PT INR 1.0 Whole Blood INR APTT 28.4 Anion Gap 14 Estim Creat Clear Calc 43.5 Estimated GFR > 60 POC Glucose Random Glucose 120 H Calcium 9.9 Total Creatine Kinase 68 Troponin I High Sens 5.2 Imaging Radiologist's Impressions: Impressions Chest X-Ray 06/24/22 12:15 IMPRESSION: No acute pulmonary disease. Head CT 06/24/22 12:19 IMPRESSION: No acute intracranial process seen. This critical result was discussed with Dr. Jauregui at 1233 hours on 06/24/2022. It was ascertained that the content and urgency of the report was understood at the time of direct communication. Assessment and Plan (1) Cerebrovascular accident: Status: Acute Plan 86-year-old woman admitted with acute stroke with noted dysarthria and aphasia Stroke with expressive aphasia and dysarthria No physical deficits Neurology consultation Head and neck CTA showing no vascular occlusion or significant stenosis MRI, echocardiogram pending Physical therapy/occupational therapy consultation Monitor on telemetry Aspirin and statin Hypertension Will allow for permissive hypertension IV labetalol for systolic blood pressure greater than 200 Hold lisinopril and atenolol for now Mental health Continue medications when patient is little more coherent DVT prophylaxis with pneumatic compression boots Attending Dr. Caro Full code and patient requires 2 inpatient midnights for treatment of acute stroke requiring further diagnostic testing and close monitoring of neurological status Time Spent With Patient Time: Total time managing care of this patient today ____ minutes. Quality Stroke Does the patient have a stroke diagnosis?: No VTE Prior VTE?: No VTE Risk Level:: Medical - moderate - high VTE Device Contraindication: N/A - Device Ordered VTE Drug Contraindication: Treatment Not Indicated
[2022-06-24 16:00] LABS: Appearance Urine Clear; Color Urine Yellow; Glucose Urine UA Negative (Negative); Leukocyte Esterase Urine Trace (Negative); Nitrite Urine Negative (Negative); Specific Gravity - Urine >= 1.030 (1.005-1.025); UMIC TRIGGER UACC YES; Urine Blood Negative (Negative); Urine Ketones Trace mg/dL (Negative); Urine Protein Trace mg/dL (Neg-Trace)
[2022-06-24 16:39] LABS: Bacteria Urine None Seen (None Seen); Hyaline Casts Urine 0-2 /LPF (0-2); Squamous Epithelial Cell Urine 0-2 /HPF (0-2); WBC Urine 0-5 /HPF (0-5)
[2022-06-24] MEDS: Atorvastatin Calcium 80 MG TABLET PO (20:26)
[2022-06-25 06:30] LABS: MANUAL DIFF FLAG NO
[2022-06-25 06:34] LABS: Basophils Percent Auto 0.3 % (0-2); Eosinophils Absolute Auto 0.1 X10*3/uL (0.0-0.4); Hematocrit 41.6 % (37.0-47.0); Hemoglobin 13.9 g/dl (12.0-16.0); Imm Gran Abs Auto 0.03 X10*3/uL (0.00-0.03); Imm Gran Pct Auto 0.3 % (0.0-0.4); Lymphocytes Absolute Auto 2.4 X10*3/uL (1.2-4.9); Mean Corpuscular HGB Conc 33.4 g/dl (31.0-35.0); Mean Corpuscular Hemoglobin 30.7 pg (27.0-33.0); Mean Corpuscular Volume 91.8 fL (80.0-98.0); Mean Platelet Volume 9.8 fL (9.4-12.3); Monocytes Absolute Auto 1.1 X10*3/uL (0.1-1.2); Monocytes Percent Auto 11.4 % (2-11); Neutrophils Absolute Auto 5.9 x10*3/uL (2.0-8.3); Platelet Count 280 X10*3/uL (160-400); Red Blood Count 4.53 X10*6/uL (4.20-5.50); Red Cell Distribution Width 12.9 % (11.0-16.0); White Blood Count 9.5 X10*3/uL (4.8-10.8)
[2022-06-25 06:52] LABS: Cholesterol 157 mg/dL; HDL Cholesterol 53 mg/dL; LDL Cholesterol Calculated 86 mg/dl; Triglycerides 91 mg/dL
[2022-06-25 06:53] LABS: Anion Gap 15 (12-20); Blood Urea Nitrogen 18 mg/dL (9-16); Calcium 9.5 mg/dL (8.4-10.2); Carbon Dioxide 21 mmol/L (22-29); Chloride 109 mmol/L (96-108); Creatinine Clr Calc Pharmacy 47.3; Estimated Glomerular Filt Rate > 60; Glucose Random 98 mg/dL (60-115); Potassium 3.9 mmol/L (3.3-5.1); Sodium 141 mmol/L (135-145)
--- NOTE | 2022-06-25 07:00 | CA_ITS ---
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 The visually estimated ejection fraction is between 60-65%. - The basal inferior, basal inferoseptal, and basal inferolateral segments are hypokinetic. - The left atrium is moderately dilated. - No obvious valvular pathology seen on this study. Findings Procedure Information The study quality is limited by the patients inability to tolerate the test. Left Ventricle Normal left ventricular cavity size. The left ventricular systolic function is normal. The visually estimated ejection fraction is between 60-65%. There is evidence of regional wall motion abnormalities. Diastolic function is normal for age. There is mild septal asymmetric hypertrophy. Wall Motion Rest Echo Findings The basal inferior, basal inferoseptal, and basal inferolateral segments are hypokinetic. Right Ventricle Normal right ventricular cavity size and systolic function. Atria The left atrium is moderately dilated. The right atrium is normal in size. Aortic Valve There is a normal trileaflet aortic valve. There is no aortic valve stenosis. There is trace (trivial) aortic valve regurgitation. Mitral Valve There is bowing of the posterior mitral leaflet without obvious prolapse. There is trace mitral valve regurgitation. There is no mitral valve stenosis. Pulmonic Valve The pulmonic valve is likely normal. Tricuspid Valve There is no tricuspid valve regurgitation. Tricuspid regurgitation envelope is inadequate for calculation of right ventricular systolic pressure. Great Vessels The asc aorta is normal in size. Venous The inferior vena cava was not well visualized. Pericardium/Pleural There is a small loculated pericardial effusion overlying the left ventricle. Prior Study Comparison Changes noted compared to prior study dated: 02/16/2021. See comment on wall motion, but possibly seen on image review. Recommendations, Care & Conclusions No obvious valvular pathology seen on this study. Measurements 2D Linear Measurements IVSd: 1.25 0.6-0.9/0.6-1.0 cm LVIDd: 4.69 3.9-5.3/4.2-5.9 cm LVIDd Index: 2.88 2.4-3.2/2.2-3.1 cm/m2 LVIDs: 2.92 2.0-3.6 cm LVPWd: 0.90 0.7-1.1 cm LA Diam: 3.70 2.7-3.8/3.0-4.0 cm LAIDs Index: 2.27 1.5-2.3 cm/m2 LV Mass: 224.94 67-162/88-224 g LV Mass Index: 138.00 43-95/49-115 g/m2 LVOT Diam: 1.90 3.0+(-)1.3 cm 2D Systolic Function EF 4C: 58.60 >55% Mitral Valve MV Pk E: 0.52 MV PK A: 0.62 MV Decel Time: 235.00 E/A: 0.80 E'Lateral: 7.18 E'Medial: 5.33 E/E' Med: 9.80 E/E' Lat: 7.30 PHT: 69.00 MVA PHT: 3.19 Decel [place]: 2.22 Aortic Valve AoV Pk Leroy: 1.31 AoV Mn Leroy: 0.77 AoV VTI: 0.24 AoV Pk Grad: 7.00 Aov Mn Grad: 3.00 IRMA Cont.VTI: 2.60 LVOT LVOT Pk Leroy: 1.07 LVOT Mn Leroy: 0.64 LVOT VTI: 0.22 LVOT Pk Grad: 5.00 LVOT Mn Grad: 2.00 LVOT Diam: 1.90 LVOT Area: 2.84 Diastolic Function MV Pk E: 0.52 MV Pk A: 0.62 E/A: 0.80 E'Medial: 5.33 E/E' Med: 9.80 E' Laterial: 7.18 E/E' Lat: 7.30 Right Ventricle TAPSE (mm): 20.70 TVS' Leroy: 11.70 Great Vessels Aorta Sinus of Valsalva: 2.80 2.0-3.5 cm Ao Asc: 3.20 2.1-3.4 cm Updated in Other Vendor System with Status of Final Kevin Garcia MD electronically signed on 06/25/2022 4:39:46 PM with status of Final
[2022-06-25 07:43] VITALS: BP 146/82; PULSE 65; RESP 16; TEMP 36.4; O2SAT 96
--- NOTE | 2022-06-25 09:05 | MHC.CM.PN ---
CM ATTEMPTED TO MEET W/PT HOWEVER PT NOT IN ROOM/OFF UNIT, CM TO REVISIT.
--- NOTE | 2022-06-25 09:46 | MHC.CM.PN ---
EMR REVIEWED, PT ADMITTED W/STROKE, BRAIN MRI COMPLETE W/REPORT PENDING, ECCHO AND SPEECH PENDING. PT REPORTS SHE WOULD LIKE TO D/C LATER TODAY IF POSSIBLE AND THAT HER BROTHER SHEREE WILL TRANSPORT. PT A&O, REPORTS SHE LIVES ALONE, DENIES USE OF DME OR HOME SERVICES AND STILL DRIVES. PT VERIFIES PCP IS ELIDA SIMON, THELMA VACC X3 OR 4 AND HCP IS BROTHER SHEREE (CONTACT NUMBER ON FILE) AND PT HAS COPY AT HOME, COPY REQUESTED. ANTIC D/C HOME W/? NEW [facility] FOR SN, OT/PT HAVE CLEARED PT, PT'S BROTHER FOR TRANSPORT.
--- NOTE | 2022-06-25 10:40 | PM.NEUROCN ---
History of Present Illness Data of Consult Service Date: 06/25/22 Primary Care Provider: Unknown Physician HPI Reason for consult: Difficulty speaking 86 years old woman who was brought to hospital after she had an acute episode of confusion and difficulty speaking. She was with someone in a restaurant when this happened. She remembered spilling something and then she had no collection of what has happened. Now she was feeling little bit nervous but otherwise back to baseline. There was no headache. Review of Systems Review of Systems: No recent cold or flu-like illness PMFSH Past Medical History Medical History (Updated 06/25/22 @ 10:42 by Eneida Stover MD) Acute adjustment disorder with anxiety Chest pain Elevated cholesterol HTN (hypertension) Hx of thyroid cyst Primary insomnia Family History Family History Brother Eye cancer Surgical History Surgical History Hx of cataract extraction Hx of colonoscopy Hx of excision of mass Social History Social History Household Members: None Housing: House Do you presently have visiting nurse or other home services: No Alcohol intake: never Patient Tobacco Use Status: Never used Tobacco service: No Current occupational status: retired [employer] Allergies Allergy/AdvReac Type Severity Reaction Status Date / Time No Known Allergies Allergy Verified 03/20/22 09:59 [No Known Allergies*] Active Medications: Current Medications Acetaminophen (Acetaminophen 325 Mg Tablet) 650 mg PO Q6H PRN PRN Reason: Pain, Mild (Pain Scale 1-3) Aspirin (Aspirin 81 Mg Tab.Chew) 81 mg PO DAILY [facility] Atorvastatin Calcium (Atorvastatin Calcium 80 Mg Tablet) 80 mg PO BEDTIME SANCHEZ Last Admin: 06/24/22 20:26 Dose: 80 mg Labetalol HCl (Labetalol Hcl 100 Mg/20 Ml Vial) 20 mg IVPUSH Q10M PRN PRN Reason: SBP>200 Ondansetron HCl (Ondansetron Hcl 4 Mg/2 Ml Vial) 4 mg IVPUSH Q8H PRN PRN Reason: Nausea and Vomiting Pharmacy Consult (Consult Rx Perform Med Rec) 1 each MISCELLANE ONCE PRN PRN Reason: Consult order Home Medications Medication Instructions Recorded Confirmed Last Taken Type simvastatin 10 mg tablet 1 tab PO BEDTIME 02/14/20 06/24/22 Unknown History aspirin 81 mg tablet,delayed 81 mg PO MOWEFR@0900 10/30/21 06/24/22 Unknown History release (Carlotta Low Dose Aspirin) atenolol 50 mg tablet 50 mg PO BID 10/30/21 06/24/22 Unknown History chlorhexidine gluconate 0.12 % 15 ml PO BID 06/24/22 06/24/22 Unknown History mouthwash lisinopril 20 mg tablet 20 mg PO DAILY 06/24/22 06/24/22 Unknown History Physical Exam Vital Signs: Vital Signs: Last Vital Signs Temp 97.5 F 06/25/22 07:43 Pulse 65 06/25/22 07:43 Resp 16 06/25/22 07:43 BP 146/82 H 06/25/22 07:43 Pulse Ox 96 06/25/22 07:43 O2 Del Method Room Air 06/25/22 07:43 BMI result Body Mass Index 25.3 Neuro: Other: she is alert and awake with normal spontaneity of speech fluency comprehension and anxious affect. Face is symmetrical. Visual granado are full. There is no focal weakness. Plantars are flexor. Deep tendon reflexes are absent. Results Labs 06/25/22 06:17 06/25/22 06:17 Labs: Short CBC 06/24/22 06/25/22 Range/Units 12:35 06:17 WBC 10.5 9.5 (4.8-10.8) X10*3/uL Hgb 13.7 13.9 (12.0-16.0) g/dl Hct 41.0 41.6 (37.0-47.0) % Plt Count 272 280 (160-400) X10*3/uL BMP 06/24/22 06/25/22 12:35 06:17 Sodium 138 141 Potassium 4.2 3.9 Chloride 108 109 H Carbon Dioxide 20 L 21 L BUN 23 H 18 H Creatinine 0.86 0.77 Calcium 9.9 9.5 Cardiac Enzymes 06/24/22 Range/Units 12:35 Total Creatine Kinase 68 (26-140) U/L Urine 06/24/22 Range/Units 15:45 Urine Color Yellow Urine Appearance Clear Urine pH 8.0 (5.0-9.0) Ur Specific [place] >= 1.030 H (1.005-1.025) Urine Protein Trace (Neg-Trace) mg/dL Urine Glucose (UA) Negative (Negative) mg/dL Noncontrast head CT did not reveal any acute abnormality. Chronic large right frontoparietal embolic looking cortical infarct was noted. MRI of brain reveals same infarct with no significant other lesion. 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 CTA of brain and neck did not reveal any vascular lesion. Assessment and Plan (1) Complex partial seizure: Status: Acute 86 years old woman with previous cortical right frontoparietal moderate-size infarct probably had an episode of complex partial seizure. Her blood pressure was also quite high at that time. My recommendation is to arrange an electroencephalogram either here or as an outpatient. Blood pressure control is recommended and she is advised to not drive at this time until this is figured out. Statin and anti-platelet agent or also recommended. As far as calvarial lesion reported by radiologist is concerned, consult oncology for any further workup. Time Spent With Patient Time: Total time managing care of this patient today ____ minutes. Procedures Date of Service Date of Service: 06/25/22
--- NOTE | 2022-06-25 11:07 | P.DS_ITS ---
DS: Providers Provider Date of Service: 06/25/22 Date of admission: 06/24/22 15:35 Primary care physician: Unknown Physician Consults: 06/24/22 15:35 Consult to Neurology Routine Consulting Provider: [facility] Reason for consultation: stroke DS: Diagnosis Discharge Diagnosis (1) Complex partial seizure: Status: Acute DS: Summary Hospital Course Hospital Course: 86-year-old woman presenting to the ER with complaints slurred speech and word- finding difficulty.? Her [id number] was present during the interview and was able to give some history.? Apparently the patient was out to breakfast at [employer] and seemed to be confused to the other attendance, she was her keys and she had knocked over some water.? Manijt subsequently called and she was brought to the ER for further evaluation.? The patient knows her name, date of , where she is but is unable to state the year and the time of day.? She is noted to have aphasia with some dysarthria and no physical deficits at 1st examination.? She also complained of some abdominal pain but no other symptoms.? She was unable to remember much about what she had for breakfast but did state that she had been feeling fine the last couple a days and her [id number] stated that she had not heard her mention that she was feeling unwell.? Her labs were all within acceptable limits, systolic blood pressure over 200s.? Head and neck occlusion or stenosis.? She was given a dose of aspirin and 2 doses of amlodipine while in the ER.? She will be admitted for further management and treatment of acute stroke. Stroke with expressive aphasia and dysarthria. back to baseline MRI showing chronic infarct. Head and neck CTA showing no vascular occlusion or significant stenosis Physical therapy/occupational therapy consultation rec home with services Aspirin and statin neurology rec o/p EEG Hypertension IV labetalol for systolic blood pressure greater than 200 while patient continue home medications Mental health continue home medications Time Spent with Patient Time attestation: Total time managing care of this patient today ____ minutes. Discharge coordination time: Greater than 30 minutes Quality: Safe Use of Opioids Does Pt have an Active Cancer Diagnosis on the Problem List?: No Quality: Stroke Does the patient have a stroke diagnosis?: No Physical Exam Vital Signs: Vital Signs: Last Vital Signs Temp 97.5 F 06/25/22 07:43 Pulse 65 06/25/22 07:43 Resp 16 06/25/22 07:43 BP 146/82 H 06/25/22 07:43 Pulse Ox 96 06/25/22 07:43 O2 Del Method Room Air 06/25/22 07:43 BMI result Body Mass Index 25.3 Appearing in no acute distress head is normocephalic atraumatic eyes pupils are PERRLA sclera is anicteric mouth throat mucous membranes are intact and moist neck is supple no lymphadenopathy, no JVD noted lung sounds are clear to auscultation heart regular rate rhythm, clear S1, S2 positive bowel sounds, abdomen is soft, nontender neuro patient is alert x3, no focal deficits DS: Data Data Completed and Pending Labs on day of discharge: Laboratory Results - last 24 hr 06/24/22 06/24/22 06/24/22 12:18 12:26 12:35 WBC 10.5 RBC 4.45 Hgb 13.7 Hct 41.0 MCV 92.1 MCH 30.8 MCHC 33.4 RDW 12.4 Plt Count 272 MPV 9.7 Immature Gran % (Auto) 0.2 Neut % (Auto) 73.2 H Lymph % (Auto) 18.2 L [place] % (Auto) 7.2 Eos % (Auto) 0.8 Baso % (Auto) 0.4 Lymph # (Auto) 1.9 [place] # (Auto) 0.8 Eos # (Auto) 0.1 Baso # (Auto) 0.0 Abs Immat Gran (auto) 0.02 Absolute Neuts (auto) 7.7 Absolute Nucleated RBC 0.000 Nucleated RBC % (auto) 0.0 PT Whole Blood PT 12.1 INR Whole Blood INR 1.0 APTT Sodium Potassium Chloride Carbon Dioxide Anion Gap BUN Creatinine Estim Creat Clear Calc Estimated GFR POC Glucose 115 Random Glucose Calcium Total Creatine Kinase Troponin I High Sens Triglycerides Cholesterol LDL Cholesterol, Calc HDL Cholesterol Urine Color Urine Appearance Urine pH Ur Specific [place] Urine Protein Urine Glucose (UA) Urine Ketones Urine Blood Urine Nitrite Ur Leukocyte Esterase Urine RBC Urine WBC Ur Squamous Epith Cells Urine Bacteria Hyaline Casts 06/24/22 06/24/22 06/24/22 12:35 12:35 12:35 WBC RBC Hgb Hct MCV MCH MCHC RDW Plt Count MPV Immature Gran % (Auto) Neut % (Auto) Lymph % (Auto) [place] % (Auto) Eos % (Auto) Baso % (Auto) Lymph # (Auto) [place] # (Auto) Eos # (Auto) Baso # (Auto) Abs Immat Gran (auto) Absolute Neuts (auto) Absolute Nucleated RBC Nucleated RBC % (auto) PT 11.3 Whole Blood PT INR 1.0 Whole Blood INR APTT 28.4 Sodium 138 Potassium 4.2 Chloride 108 Carbon Dioxide 20 L Anion Gap 14 BUN 23 H Creatinine 0.86 Estim Creat Clear Calc 43.5 Estimated GFR > 60 POC Glucose Random Glucose 120 H Calcium 9.9 Total Creatine Kinase 68 Troponin I High Sens 5.2 Triglycerides Cholesterol LDL Cholesterol, Calc HDL Cholesterol Urine Color Urine Appearance Urine pH Ur Specific [place] Urine Protein Urine Glucose (UA) Urine Ketones Urine Blood Urine Nitrite Ur Leukocyte Esterase Urine RBC Urine WBC Ur Squamous Epith Cells Urine Bacteria Hyaline Casts 06/24/22 06/25/22 06/25/22 15:45 06:17 06:17 WBC 9.5 RBC 4.53 Hgb 13.9 Hct 41.6 MCV 91.8 MCH 30.7 MCHC 33.4 RDW 12.9 Plt Count 280 MPV 9.8 Immature Gran % (Auto) 0.3 Neut % (Auto) 62.0 Lymph % (Auto) 25.0 [place] % (Auto) 11.4 H Eos % (Auto) 1.0 Baso % (Auto) 0.3 Lymph # (Auto) 2.4 [place] # (Auto) 1.1 Eos # (Auto) 0.1 Baso # (Auto) 0.0 Abs Immat Gran (auto) 0.03 Absolute Neuts (auto) 5.9 Absolute Nucleated RBC 0.000 Nucleated RBC % (auto) 0.0 PT Whole Blood PT INR Whole Blood INR APTT Sodium 141 Potassium 3.9 Chloride 109 H Carbon Dioxide 21 L Anion Gap 15 BUN 18 H Creatinine 0.77 Estim Creat Clear Calc 47.3 Estimated GFR > 60 POC Glucose Random Glucose 98 Calcium 9.5 Total Creatine Kinase Troponin I High Sens Triglycerides Cholesterol LDL Cholesterol, Calc HDL Cholesterol Urine Color Yellow Urine Appearance Clear Urine pH 8.0 Ur Specific [place] >= 1.030 H Urine Protein Trace Urine Glucose (UA) Negative Urine Ketones Trace Urine Blood Negative Urine Nitrite Negative Ur Leukocyte Esterase Trace H Urine RBC 3-5 H Urine WBC 0-5 Ur Squamous Epith Cells 0-2 Urine Bacteria None Seen Hyaline Casts 0-2 04/18/23 06:17 WBC RBC Hgb Hct MCV MCH MCHC RDW Plt Count MPV Immature Gran % (Auto) Neut % (Auto) Lymph % (Auto) [place] % (Auto) Eos % (Auto) Baso % (Auto) Lymph # (Auto) [place] # (Auto) Eos # (Auto) Baso # (Auto) Abs Immat Gran (auto) Absolute Neuts (auto) Absolute Nucleated RBC Nucleated RBC % (auto) PT Whole Blood PT INR Whole Blood INR APTT Sodium Potassium Chloride Carbon Dioxide Anion Gap BUN Creatinine Estim Creat Clear Calc Estimated GFR POC Glucose Random Glucose Calcium Total Creatine Kinase Troponin I High Sens Triglycerides 91 Cholesterol 157 LDL Cholesterol, Calc 86 HDL Cholesterol 53 Urine Color Urine Appearance Urine pH Ur Specific [place] Urine Protein Urine Glucose (UA) Urine Ketones Urine Blood Urine Nitrite Ur Leukocyte Esterase Urine RBC Urine WBC Ur Squamous Epith Cells Urine Bacteria Hyaline Casts Discharge Plan Discharge Anticipated Discharge Date/Time: 06/25/22 11:01 Patient Disposition: Home Health Service Discharge Diagnosis: Expressive aphasia TIA versus seizure Referrals: Eneida Stover MD [Physician] - 1 Week (Outpatient EEG) Maurisio Delgado MD [Physician] - 1 Week (Calvarial lesion on MRI) Discharge Medications: New atorvastatin 80 mg Tablet 80 mg PO BEDTIME Qty: 30 0RF aspirin 81 mg Tablet,Chewable 81 mg PO DAILY Qty: 30 0RF Continued trazodone 100 mg tablet 100 mg PO BEDTIME Qty: 90 0RF atenolol 50 mg tablet 50 mg PO BID lisinopril 20 mg tablet 20 mg PO DAILY chlorhexidine gluconate 0.12 % mouthwash 15 ml PO BID Citrucel 500 mg tablet 500 mg PO DAILY Qty: 90 2RF Rx Instructions: take it with full glass of water sennosides [Natural Senna Laxative] 8.6 mg tablet 8.6 mg PO BEDTIME Qty: 90 3RF Discontinued simvastatin 10 mg tablet 1 tab PO BEDTIME aspirin [Carlotta Low Dose Aspirin] 81 mg tablet,delayed release (DR/EC) 81 mg PO MOWEFR@0900 Discharge Orders: Discharge Order (Routine); Ordered 06/25/22 Ordered By: Farnaz Brooks Diet: Advance to usual diet Activity on Discharge: As tolerated Stand Alone Forms: Patient Portal Discharge page Care Plan Goals: Complete resolution of symptoms Health Concerns: Expressive aphasia TIA versus seizure Plan of Treatment: Follow-up with primary care provider as needed Follow-up with Oncology for calvarial lesion on MRI Follow-up with neurologist for outpatient EEG referral Assessment: See discharge summary
[2022-06-25 11:27] VITALS: BP 144/62; PULSE 61; RESP 16; TEMP 36.3; O2SAT 98
[2022-06-25] MEDS: Aspirin 81 MG TAB.CHEW PO (11:53)
--- NOTE | 2022-06-26 12:41 | MHC.CM.PN ---
LATE ENTRY NOTE FROM 06/25/22, NICOLASA HUSTONA WILL PROVIDE INTERMEDIATE FOR PT, PT CPNTACTED AT HOME AND AWRE SHE WILL BE RECEIVING A CALL FROM [facility].
== END 2022-06-25 16:47 | disposition home health service (06) | DRG 101 ==
LOC: HO.ED 15:23 → HO.EDOVER 15:44 → HO.IMC 15:45
PROVIDERS: Admitting Provider Nurse Practitioner Acute Care; Emergency Provider Emergency Medicine; Visit Provider Nurse Practitioner Acute Care
DX: G40.209 Localization-related (focal) (partial) symptomatic epilepsy and epileptic syndromes with complex partial seizures, not intractable, without status epilepticus (principal); E78.00 Pure hypercholesterolemia, unspecified; I10 Essential (primary) hypertension; Z86.73 Personal history of transient ischemic attack (TIA), and cerebral infarction without residual deficits; Z79.899 Other long term (current) drug therapy
CPT/HCPCS: 36415; 70450; 70496; 70498; 70551; 71045; 74018; 80048; 80061; 81001; 81003; 82550; 82947; 84484; 85025; 85610; 85730; 93005; 93306; 97161; 97165; 99285; Q9957; Q9967

== ENCOUNTER → 2022-07-22 10:32 | Outpatient (REF) | payer OTHER, SELFPAY ==
--- NOTE | ~2022-07-22 | NM_ITS ---
EXAMINATION: NM BONE SCAN OF THE WHOLE BODY CLINICAL INFORMATION: Bone lesion seen on recent MRI of the head. COMPARISON: No previous bone scan is available for comparison. A radiograph of the abdomen dated 06/24/2022 and MRI of the head dated 06/25/2022 are available for comparison. The diagnostic CT scan of the abdomen and pelvis, dated 02/17/2021, is available for comparison. TECHNIQUE: Multiple gamma scintillation camera images of the whole body were performed 2.75 hours following the intravenous administration of 22 mCi Tc-99m MDP. FINDINGS: In the head, no foci of abnormally increased activity are present. 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 There is no abnormality present at corresponds to the focus of bone marrow replacement in the left frontal calvarium visualized on 06/25/2022 MRI.. In the thoracic cage and upper extremities, there is minimally increased activity in the acromioclavicular joints bilaterally. Some residual radiopharmaceutical at the injection site in the left antecubital fossa is noted. In the spine, a minimal thoracolumbar scoliosis is present with lumbar convexity to the left. There is a focus of mildly increased activity in the left lateral aspect of the lower cervical spine probably due to facet arthropathy. There is a focus of mildly increased activity to the left of midline in a midthoracic vertebral body, probably T8. Superior to this a mild abnormality in the right posterior elements of the mid thoracic spine likely at the T6-T7 level is present and there are also faint foci along the lateral margins of the upper thoracic spine, also probably in the posterior elements and probably at the T2-T3 level. No other foci of abnormal activity are present in the spine. In the pelvis, no significant abnormalities are present. In the lower extremities, there is moderately increased activity in the medial compartment of the left knee. Additional faint foci of increased activity are present laterally in the mid feet bilaterally. No other definite bony abnormalities are noted. The urinary bladder and faint visualization of both kidneys are noted. NM/NM bone scan whole body IMPRESSION: 1. There is no bone scan abnormality that corresponds to the focus of abnormal signal in the left frontal calvarium visualized on the recent MRI. This suggests a nonaggressive etiology. 2. A few additional nonspecific abnormalities are present in the spine as described above. These may be degenerative in etiology, but malignant lesions at these sites cannot be entirely ruled out, particularly the vertebral body lesion at T8. 3. An FDG PET/CT scan would be helpful in further evaluating both the calvarial and spine lesions to help rule out a malignant etiology, if clinically indicated. Alternatively, repeat bone scan and repeat MRI of the head to determine stability of these abnormalities could be performed in approximately 6 months. 4. A few additional nonspecific abnormalities are noted as described above and these are all likely arthritic or traumatic in etiology. The most severe of these is in the left knee. None of these abnormalities is strongly suspicious for metastatic disease.
== END ==
LOC: HO.NUCMED 10:32
PROVIDERS: PCP Internal Medicine; Visit Provider Internal Medicine
DX: D16.4 Benign neoplasm of bones of skull and face (principal)
CPT/HCPCS: 78306; A9503

== ENCOUNTER 2022-09-07 09:09 | Outpatient (REF) | payer OTHER, SELFPAY | END 2022-09-07 09:10 | disposition home or self-care (01) | LOC: HO.LAB 09:09 | PROVIDERS: PCP Internal Medicine; Visit Provider Internal Medicine Endocrinology, Diabetes & Metabolism | DX: E04.2 Nontoxic multinodular goiter (principal); E05.90 Thyrotoxicosis, unspecified without thyrotoxic crisis or storm | CPT/HCPCS: 36415; 84439; 84443; 84481 ==

== ENCOUNTER 2022-10-24 09:28 | Outpatient (REF) | payer OTHER, SELFPAY ==
[2022-10-24 11:23] LABS: Thyroid Stimulating Hormone 0.43 uIU/mL (0.32-4.0)
[2022-10-25 06:53] LABS: Triiodothyronine T3 Free 3.3 pg/mL (2.3-4.2)
== END 2022-10-24 09:29 | disposition home or self-care (01) ==
LOC: HO.LAB 09:28
PROVIDERS: PCP Internal Medicine; Visit Provider Internal Medicine Endocrinology, Diabetes & Metabolism
DX: E05.90 Thyrotoxicosis, unspecified without thyrotoxic crisis or storm (principal); E04.2 Nontoxic multinodular goiter
CPT/HCPCS: 36415; 84439; 84443; 84481

== ENCOUNTER 2022-12-19 10:42 | Outpatient (REF) | payer OTHER, SELFPAY ==
[2022-12-19 10:59] LABS: MANUAL DIFF FLAG NO
[2022-12-19 11:54] LABS: Basophils Percent Auto 0.4 % (0-2); Eosinophils Absolute Auto 0.2 X10*3/uL (0.0-0.4); Eosinophils Percent Auto 2.3 % (0-4); Hematocrit 40.9 % (37.0-47.0); Hemoglobin 13.4 g/dl (12.0-16.0); Imm Gran Abs Auto 0.01 X10*3/uL (0.00-0.03); Imm Gran Pct Auto 0.1 % (0.0-0.4); Lymphocytes Absolute Auto 2.1 X10*3/uL (1.2-4.9); Lymphocytes Percent Auto 29.2 % (20-40); Mean Corpuscular HGB Conc 32.8 g/dl (31.0-35.0); Mean Corpuscular Hemoglobin 31.1 pg (27.0-33.0); Mean Corpuscular Volume 94.9 fL (80.0-98.0); Mean Platelet Volume 10.3 fL (9.4-12.3); Monocytes Absolute Auto 0.7 X10*3/uL (0.1-1.2); Monocytes Percent Auto 9.7 % (2-11); Neutrophils Absolute Auto 4.1 x10*3/uL (2.0-8.3); Neutrophils Percent Auto 58.3 % (45-73); Platelet Count 285 X10*3/uL (160-400); Red Blood Count 4.31 X10*6/uL (4.20-5.50); Red Cell Distribution Width 12.4 % (11.0-16.0); White Blood Count 7.1 X10*3/uL (4.8-10.8)
[2022-12-19 13:03] LABS: Alanine Aminotransferase 11 U/L (0-31); Albumin Level 4.2 g/dL (3.5-5.0); Alkaline Phosphatase 95 U/L (39-117); Anion Gap 12 (12-20); Aspartate Amino Transferase 15 U/L (5-31); Bilirubin Total 0.8 mg/dL (0.0-1.0); Blood Urea Nitrogen 24 mg/dL (9-16); Calcium 9.8 mg/dL (8.4-10.2); Carbon Dioxide 25 mmol/L (22-29); Chloride 108 mmol/L (96-108); Cholesterol 120 mg/dL (<200); Estimated Glomerular Filt Rate > 60; Glucose Fasting 91 mg/dL (60-99); HDL Cholesterol 49 mg/dL (>40); LDL Cholesterol Calculated 55 mg/dL (<100); Sodium 141 mmol/L (135-145); Total Protein 7.1 g/dL (6.5-8.0); Triglycerides 82 mg/dL (<150)
== END 2022-12-19 10:43 | disposition home or self-care (01) ==
LOC: HO.LAB 10:42
PROVIDERS: PCP Internal Medicine; Visit Provider Internal Medicine
DX: I10 Essential (primary) hypertension (principal); E78.00 Pure hypercholesterolemia, unspecified
CPT/HCPCS: 36415; 80053; 80061; 85025

== ENCOUNTER 2023-03-01 06:38 | Emergency (ER) | payer OTHER, SELFPAY ==
--- NOTE | ~2023-03-01 | CT_ITS ---
EXAMINATION: CT gi bleed abd pel wo/w IVcon CLINICAL INFORMATION: Reason for Exam rectal bleeding, abdominal pain COMPARISON: Prior CT February 2021 TECHNIQUE: Multidetector volumetric imaging was performed from the superior aspect of the liver through the pubic symphysis 100 mL of Omnipaque 350 injected Sagittal and coronal reformatted images were obtained on the technologist's workstation. This CT examination was performed using dose optimization techniques as appropriate, variously including the following: *Automated exposure control *Adjustment of mA and/or kV according to patient size (this includes techniques or standardized protocols for targeted exams where dose is matched to indication/reason for exam; i.e. extremities or head) *Use of iterative reconstruction technique DLP: 1094 mGy-cm FINDINGS: LOWER THORAX: Included lung bases are clear. HEPATOBILIARY: No focal hepatic lesions. No biliary ductal dilatation. GALLBLADDER: Gallbladder unremarkable. SPLEEN: Spleen is normal in size. PANCREAS: No focal mass or ductal dilatation. STOMACH AND GASTROINTESTINAL TRACT: Stomach is grossly unremarkable. There is marked circumferential wall thickening with low-attenuation involving the descending colon and the splenic flecture of the transverse colon along with pericolic fat stranding, differential diagnoses would include colitis which could be inflammatory or infection colitis, versus ischemic and this commonly neoplastic. This has newly developed since prior CT. There is heavy sigmoid diverticulosis of the sigmoid colon. No CT evidence of appendicitis. ADRENALS: No adrenal nodules. KIDNEYS/URETERS: There are multiple bilateral renal cysts the largest is on the right side 2.6 cm, these cysts are simple cyst Bosniak class I almost certainly benign no follow-up required. No CT evidence of solid renal lesion. No hydronephrosis. URINARY BLADDER: Partially decompressed. PELVIC VISCERA: Redemonstration of a large right pelvic cyst most likely of right ovarian origin 4.5 cm this has not significantly changed. Small left ovarian cyst 1.8 cm unchanged either. There is no pelvic lymphadenopathy. No abscess. PERITONEUM: No free air or fluid. LYMPH NODES: No lymphadenopathy. VASCULAR:Abdominal aorta normal in size, no aneurysm found. BONES, ABDOMINAL WALL AND SOFT TISSUES: Age-appropriate changes of the spine and skeletal system, no destructive osteolytic or osteosclerotic bone lesion found CT/CT gi bleed abd pel wo/w IVcon IMPRESSION: * Interval development of marked circumferential wall thickening of the descending colon and the splenic flecture of the transverse colon, this along with pericolic fat stranding, suggesting acute inflammation, differential diagnoses would include colitis which could be infection colitis, inflammation such as IBD, versus ischemic and less commonly neoplastic. Clinical correlation and follow-up advised. * Heavy sigmoid diverticulosis without evidence of acute diverticulitis. * Redemonstration of a large right pelvic cyst most likely of right ovarian origin 4.5 cm and a small left ovarian cyst 1.8 cm unchanged. (Referring physician staff is being called, by physician staff assistance, to be alerted of the above critical findings and recommendations.) A J 03/01/2023 11:10 AM
[2023-03-01 06:53] VITALS: BP 183/77; PULSE 74; RESP 16; TEMP 36.4; O2SAT 95; BMI 23.7
--- NOTE | 2023-03-01 07:08 | ED.ABDPAIN ---
HPI - Abdominal Pain General Chief Complaint: Abdominal Pain Stated Complaint: abd pain blood in stools Time Seen by Provider: 03/01/23 07:05 Source: patient Mode of arrival: ambulatory Limitations: no limitations History of Present Illness HPI narrative: 87 yo female with history of HTN, HLD, CVA on ASA here with complaints complaints lower abdominal cramping last evening. This has now resolved. After she developed cramping she did have several episodes of loose stools which were dark red/brown in color. Patient reports this continued throughout the evening. She did have an episode this morning prompting her to come into the emergency room. She denies any history of GI bleed. She denies any history abdominal surgery. She has had no associated nausea, vomiting, fevers. Related Data Home Medications Medication Instructions Recorded Confirmed atenolol 50 mg tablet 50 mg PO BID 10/30/21 03/01/23 chlorhexidine gluconate 0.12 % 15 ml PO BID 06/24/22 06/24/22 mouthwash lisinopril 20 mg tablet 20 mg PO DAILY 06/24/22 03/01/23 Previous Rx's Medication Instructions Recorded aspirin 81 mg chewable tablet 81 mg PO DAILY #30 tabs 06/25/22 atorvastatin 80 mg tablet 80 mg PO BEDTIME #30 tabs 06/25/22 sennosides 8.6 mg tablet (senna) 8.6 mg PO BEDTIME #30 tabs 09/30/22 Allergies Allergy/AdvReac Type Severity Reaction Status Date / Time No Known Allergies Allergy Verified 03/01/23 06:59 [No Known Allergies*] Review of Systems Review of Systems Yes all other systems are reviewed and are negative Constitutional: Reports no additional constitutional complaints, Denies body ache(s), Denies chills, Denies fever(s), Denies headache(s) and Denies weakness Eyes: Reports no additional eye complaints and Denies change in vision Reports system reviewed and no additional complaints, except as documented, Denies dizziness, Denies headache(s), Denies nasal congestion, Denies nasal discharge and Denies neck pain Cardiovascular: Reports no additional cardiovascular complaints, Denies chest pain, Denies leg edema and Denies dyspnea Respiratory: Reports no additional respiratory complaints, Denies cough and Denies dyspnea Gastrointestinal: Reports no additional gastrointestinal complaints, Reports abdominal pain, Denies melena, Reports hematochezia, Denies diarrhea, Denies nausea and Denies vomiting Genitourinary: Reports no additional female genitourinary complaints and Denies urinary incontinence Musculoskeletal: Reports no additional musculoskeletal complaints, Denies back pain, Denies arthralgias, Denies joint swelling, Denies neck pain, Denies numbness and Denies tingling Skin/Breast: Reports system reviewed and no additional complaints, except as docu and Denies rash Reports system reviewed and no additional complaints, except as documented, Denies Abnormal speech present, Denies dizziness, Denies headache(s), Denies numbness, Denies tingling and Denies weakness PMFSH Past Medical History Attestation statement: The following information was validated with the patient. Source: old records reviewed and nursing notes reviewed Medical History Acute adjustment disorder with anxiety Primary insomnia Chest pain Hx of thyroid cyst Elevated cholesterol HTN (hypertension) Surgical History Hx of colonoscopy Hx of excision of mass Hx of cataract extraction Family History Family History Brother Eye cancer Brother Abscess of pharynx or nasopharynx Social History Social History Household Members: None Housing: House Do you presently have visiting nurse or other home services: No Alcohol intake: never Patient Tobacco Use Status: Never used Tobacco Smoked in Last 30 Days: No Use of substances other than those prescribed or required for medical reasons: No Advance Directives: No Advance Directives Information Provided: No service: No Current occupational status: retired Physical Exam ED Vital Signs: Vital Signs - 24 hr 03/01/23 06:53 03/01/23 09:22 03/01/23 09:23 Temperature 97.6 F Pulse Rate 74 62 Respiratory Rate 16 16 Blood Pressure 183/77 H 186/58 H 186/53 H Pulse Oximetry 95 98 Oxygen Delivery Method Room Air Room Air 03/01/23 10:33 03/01/23 10:33 Temperature Pulse Rate Respiratory Rate Blood Pressure 205/69 H 188/60 H Pulse Oximetry Oxygen Delivery Method BMI result Body Mass Index 23.7 Const General: cooperative, healthy appearing, comfortable and no acute distress Orientation/consciousness: patient oriented x3 Limitations: no limitations HENMT Head: Yes normal to inspection Ears: hearing grossly normal bilaterally General nose exam: Normal external nose present Face and sinus: Yes normal facial exam Mouth: Normal oral and palatal mucosa present Throat: Yes posterior oropharynx normal Eyes General: appearance normal, both eyes and all related structures Pupils: Equal, round and reactive pupils present Neck Neck: Yes normal visual inspection Chest Chest palpation & inspection: normal inspection of the chest Resp Effort & Inspection: normal respiratory effort Auscultation: clear to auscultation bilaterally Cardio Rate: regular rate Rhythm: regular rhythm Peripheral pulses: Peripheral pulses 2+ throughout GI Inspection: Yes normal to inspection Palpation (GI): Soft to palpation and nontender Auscultation: normal bowel sounds Rectal Exam - Female: visual inspection normal and heme positive stool Back/Spine/Pelvis Thoracic/Lumbar Spine: thoracic and lumbar spine normal to inspection Skin General skin exam: no rashes or lesions noted Neuro General: patient oriented x3, no focal motor deficits and normal sensation to monofilament Cranial nerves: Yes Equal, round and reactive pupils present Cognition (Neuro): normal cognition Speech: No Abnormal speech present Gait exam (Neuro): Normal gait present Motor exam (neuro): 5/5 motor strength present throughout Extrem General: Yes normal to inspection Course Course Course Narrative: Delay in getting CT Scan d/t IV access. Initial PIV infiltrated, wildlife biology technician tried twice but was unsuccessful. Second RN to try. Blood pressure elevated, did not take morning meds. Will medicate here. Reevaluation(s) Reevaluation #1: CT shows IMPRESSION: * Interval development of marked circumferential wall thickening of the descending colon and the splenic flecture of the transverse colon, this along with pericolic fat stranding, suggesting acute inflammation, differential diagnoses would include colitis which could be infection colitis, inflammation such as IBD, versus ischemic and less commonly neoplastic. Clinical correlation and follow-up advised. * Heavy sigmoid diverticulosis without evidence of acute diverticulitis. * Redemonstration of a large right pelvic cyst most likely of right ovarian origin 4.5 cm and a small left ovarian cyst 1.8 cm unchanged. (Referring physician staff is being called, by physician staff assistance, to be alerted of the above critical findings and recommendations.) Labs are stable. Will d/w with GI Reevaluation #2: 1240-repeat CBC stable. repeat abdominal exam benign. Patient tolerating PO. VSS. Will discharge home with clear liquids for 24 hrs then advancing tolerated, holding ASA and return for worsening symptoms. Reviewed worrisome signs and symptoms of when to return to the emergency room. Comfortable plan for discharge home Medical Decision Making Medical Decision Making [facility] Narrative: 87 yo female with history of HTN, HLD, CVA on ASA here with complaints complaints lower abdominal cramping last evening.? This has now resolved.? After she developed cramping she did have several episodes of loose stools which were dark red/brown in color.? Patient reports this continued throughout the evening.? She did have an episode this morning prompting her to come into the emergency room.? She denies any history of GI bleed.? She denies any history abdominal surgery.? She has had no associated nausea, vomiting, fevers. No focal abdominal pain. Bowel sounds pressure. Abdomen soft. Rectal exam BRB, heme + Will need labs, GI bleed CT, will send occult card Differential Diagnosis Differential Diagnoses: The differential diagnosis associated with the presentation includes GIB, ischemic colitis, diverticulitis Admission/Observation Consideration of admission/observation: Escalation of care including admission/observation considered See discussion with consulting Consult Healthcare Provider Management of the patient was discussed with: Toddler Caregiver Dr Vasquez (GI)-we discuss this patient. He believes the patient likely has some ischemic colitis. We did review her labs and her abdominal exam. He feels the patient can go home if she is feeling well and her labs are stable. He did recommend 24 hours of clear liquids, holding aspirin and close follow-up outpatient with strict return precautions. Lab Data [facility] Lab Attestation statement: I reviewed the patient's lab results. 03/01/23 12:04 03/01/23 07:27 Labs: Lab Results 03/01/23 03/01/23 03/01/23 Range/Units 07:27 07:42 07:57 WBC 12.2 H (4.8-10.8) X10*3/uL RBC 4.44 (4.20-5.50) X10*6/uL Hgb 14.1 (12.0-16.0) g/dl Hct 42.1 (37.0-47.0) % MCV 94.8 (80.0-98.0) fL MCH 31.8 (27.0-33.0) pg MCHC 33.5 (31.0-35.0) g/dl RDW 13.4 (11.0-16.0) % Plt Count 280 (160-400) X10*3/uL MPV 9.7 (9.4-12.3) fL Immature Gran % (Auto) 0.4 (0.0-0.4) % Neut % (Auto) 79.0 H (45-73) % Lymph % (Auto) 13.2 L (20-40) % Nobles % (Auto) 6.6 (2-11) % Eos % (Auto) 0.6 (0-4) % Baso % (Auto) 0.2 (0-2) % Lymph # (Auto) 1.6 (1.2-4.9) X10*3/uL Nobles # (Auto) 0.8 (0.1-1.2) X10*3/uL Eos # (Auto) 0.1 (0.0-0.4) X10*3/uL Baso # (Auto) 0.0 (0.0-0.2) X10*3/uL Abs Immat Gran (auto) 0.05 H (0.00-0.03) X10*3/uL Absolute Neuts (auto) 9.6 H (2.0-8.3) x10*3/uL Absolute Nucleated RBC 0.000 (0.0-0.012) X10*3/uL Nucleated RBC % (auto) 0.0 (0.0-0.2) /100WBC PT 12.3 (11.1-13.3) SEC INR 1.0 (0.9-1.1) Sodium 139 (135-145) mmol/L Potassium 3.4 (3.3-5.1) mmol/L Chloride 109 H (96-108) mmol/L Carbon Dioxide 21 L (22-29) mmol/L Anion Gap 12 (12-20) BUN 18 H (9-16) mg/dL Creatinine 0.75 (0.5-1.4) mg/dL Estim Creat Clear Calc 47.3 Estimated GFR > 60 Random Glucose 138 H (60-115) mg/dL Lactic Acid 1.8 (0.5-2.0) mmol/L Calcium 10.1 (8.4-10.2) mg/dL Total Bilirubin 0.7 (0.0-1.0) mg/dL Direct Bilirubin 0.3 (0.0-0.5) mg/dL AST 20 (5-31) U/L ALT 18 (0-31) U/L Alkaline Phosphatase 98 (39-117) U/L Total Protein 7.3 (6.5-8.0) g/dL Albumin 4.1 (3.5-5.0) g/dL Stool Occult Blood POSITIVE (NEGATIVE) 03/01/23 Range/Units 12:04 WBC 11.6 H (4.8-10.8) X10*3/uL RBC 4.40 (4.20-5.50) X10*6/uL Hgb 13.9 (12.0-16.0) g/dl Hct 41.3 (37.0-47.0) % MCV 93.9 (80.0-98.0) fL MCH 31.6 (27.0-33.0) pg MCHC 33.7 (31.0-35.0) g/dl RDW 13.5 (11.0-16.0) % Plt Count 239 (160-400) X10*3/uL MPV Not Reportable (9.4-12.3) fL Immature Gran % (Auto) 0.4 (0.0-0.4) % Neut % (Auto) 77.1 H (45-73) % Lymph % (Auto) 15.1 L (20-40) % Nobles % (Auto) 6.9 (2-11) % Eos % (Auto) 0.3 (0-4) % Baso % (Auto) 0.2 (0-2) % Lymph # (Auto) 1.8 (1.2-4.9) X10*3/uL Nobles # (Auto) 0.8 (0.1-1.2) X10*3/uL Eos # (Auto) 0.0 (0.0-0.4) X10*3/uL Baso # (Auto) 0.0 (0.0-0.2) X10*3/uL Abs Immat Gran (auto) 0.05 H (0.00-0.03) X10*3/uL Absolute Neuts (auto) 9.0 H (2.0-8.3) x10*3/uL Absolute Nucleated RBC 0.000 (0.0-0.012) X10*3/uL Nucleated RBC % (auto) 0.0 (0.0-0.2) /100WBC PT (11.1-13.3) SEC INR (0.9-1.1) Sodium (135-145) mmol/L Potassium (3.3-5.1) mmol/L Chloride (96-108) mmol/L Carbon Dioxide (22-29) mmol/L Anion Gap (12-20) BUN (9-16) mg/dL Creatinine (0.5-1.4) mg/dL Estim Creat Clear Calc Estimated GFR Random Glucose (60-115) mg/dL Lactic Acid (0.5-2.0) mmol/L Calcium (8.4-10.2) mg/dL Total Bilirubin (0.0-1.0) mg/dL Direct Bilirubin (0.0-0.5) mg/dL AST (5-31) U/L ALT (0-31) U/L Alkaline Phosphatase (39-117) U/L Total Protein (6.5-8.0) g/dL Albumin (3.5-5.0) g/dL Stool Occult Blood (NEGATIVE) Independent Interpretation I performed an independent interpretation of an: CT Scan Interpretation: I independently reviewed the CT scan agree with Radiology report Radiology Impression Discussion of test interpretation with radiology: I have reviewed the radiologist's reading. Radiologist Impression: FINDINGS: LOWER THORAX: Included lung bases are clear. HEPATOBILIARY: No focal hepatic lesions. No biliary ductal dilatation. GALLBLADDER: Gallbladder unremarkable. SPLEEN: Spleen is normal in size. PANCREAS: No focal mass or ductal dilatation. STOMACH AND GASTROINTESTINAL TRACT: Stomach is grossly unremarkable. There is marked circumferential wall thickening with low-attenuation involving the descending colon and the splenic flecture of the transverse colon along with pericolic fat stranding, differential diagnoses would include colitis which could be inflammatory or infection colitis, versus ischemic and this commonly neoplastic. This has newly developed since prior CT. There is heavy sigmoid diverticulosis of the sigmoid colon. No CT evidence of appendicitis. ADRENALS: No adrenal nodules. KIDNEYS/URETERS: There are multiple bilateral renal cysts the largest is on the right side 2.6 cm, these cysts are simple cyst Bosniak class I almost certainly benign no follow-up required. No CT evidence of solid renal lesion. No hydronephrosis. URINARY BLADDER: Partially decompressed. PELVIC VISCERA: Redemonstration of a large right pelvic cyst most likely of right ovarian origin 4.5 cm this has not significantly changed. Small left ovarian cyst 1.8 cm unchanged either. There is no pelvic lymphadenopathy. No abscess. PERITONEUM: No free air or fluid. LYMPH NODES: No lymphadenopathy. VASCULAR:Abdominal aorta normal in size, no aneurysm found. BONES, ABDOMINAL WALL AND SOFT TISSUES: Age-appropriate changes of the spine and skeletal system, no destructive osteolytic or osteosclerotic bone lesion found CT/CT gi bleed abd pel wo/w IVcon IMPRESSION: * Interval development of marked circumferential wall thickening of the descending colon and the splenic flecture of the transverse colon, this along with pericolic fat stranding, suggesting acute inflammation, differential diagnoses would include colitis which could be infection colitis, inflammation such as IBD, versus ischemic and less commonly neoplastic. Clinical correlation and follow-up advised. * Heavy sigmoid diverticulosis without evidence of acute diverticulitis. * Redemonstration of a large right pelvic cyst most likely of right ovarian origin 4.5 cm and a small left ovarian cyst 1.8 cm unchanged. External Record Review External record reviewed: Inpatient record Patient had colonoscopy 02/18/[address] Vasquez which showed colon polyps, diverticulosis, internal hemorrhoid. Patient had biopsy and removal of polyp at that time. Pathology report shows tubular adenoma with no high-grade dysplasia or carcinoma seen Medications Administered Discontinued Medications Generic Name Dose Route Start Last Admin Trade Name Freq PRN Reason Stop Dose Admin Atenolol 50 mg 03/01/23 09:31 03/01/23 09:35 Atenolol 50 Mg Tablet PO 03/01/23 09:32 50 mg ONCE ONE Administration Protocol Iohexol 100 ml 03/01/23 10:32 03/01/23 10:32 Iohexol 350 Mg/Ml 100 Ml Infus..Btl IV 03/01/23 10:33 85 ml ONCE ONE Administration Lisinopril 20 mg 03/01/23 09:31 03/01/23 09:35 Lisinopril 20 Mg Tablet PO 03/01/23 09:32 20 mg ONCE ONE Administration Protocol Discharge Plan Discharge Clinical Impression: Colitis Patient Disposition: Home, Self-Care Instructions: Colitis (ED) Additional Instructions: Clear liquid diet until tomorrow and then you may advance her diet as tolerated. Hold her aspirin for several days. Call your primary care doctor on Friday to schedule follow-up appointment. Return for any abdominal pain, worsening bleeding, vomiting or change in symptoms Clear liquids includes apple juice, cranberry juice, water, Powerade, Gatorade, chicken or beef broth, Jell-O, popsicles Prescriptions: No Action sennosides [senna] 8.6 mg tablet 8.6 mg PO BEDTIME Qty: 30 0RF atenolol 50 mg tablet 50 mg PO BID lisinopril 20 mg tablet 20 mg PO DAILY chlorhexidine gluconate 0.12 % mouthwash 15 ml PO BID atorvastatin 80 mg Tablet 80 mg PO BEDTIME Qty: 30 0RF aspirin 81 mg Tablet,Chewable 81 mg PO DAILY Qty: 30 0RF Referrals: Berto Belle MD [Primary Care Provider] - 1 week Interventions: ED Discharge Assessment Last Done: 03/01/23 12:33 Discharge Date/Time: 03/01/23 12:37
[2023-03-01 07:32] LABS: MANUAL DIFF FLAG NO
[2023-03-01 07:34] LABS: Basophils Percent Auto 0.2 % (0-2); Eosinophils Absolute Auto 0.1 X10*3/uL (0.0-0.4); Eosinophils Percent Auto 0.6 % (0-4); Hematocrit 42.1 % (37.0-47.0); Hemoglobin 14.1 g/dl (12.0-16.0); Imm Gran Abs Auto 0.05 X10*3/uL (0.00-0.03); Imm Gran Pct Auto 0.4 % (0.0-0.4); Lymphocytes Absolute Auto 1.6 X10*3/uL (1.2-4.9); Lymphocytes Percent Auto 13.2 % (20-40); Mean Corpuscular HGB Conc 33.5 g/dl (31.0-35.0); Mean Corpuscular Hemoglobin 31.8 pg (27.0-33.0); Mean Corpuscular Volume 94.8 fL (80.0-98.0); Mean Platelet Volume 9.7 fL (9.4-12.3); Monocytes Absolute Auto 0.8 X10*3/uL (0.1-1.2); Monocytes Percent Auto 6.6 % (2-11); Neutrophils Absolute Auto 9.6 x10*3/uL (2.0-8.3); Platelet Count 280 X10*3/uL (160-400); Red Blood Count 4.44 X10*6/uL (4.20-5.50); Red Cell Distribution Width 13.4 % (11.0-16.0); White Blood Count 12.2 X10*3/uL (4.8-10.8)
[2023-03-01 07:47] LABS: OBS Int Ctl Valid YES; OBS1 POSITIVE (NEGATIVE)
[2023-03-01 07:48] LABS: Prothrombin Time 12.3 SEC (11.1-13.3)
[2023-03-01 07:56] LABS: Alanine Aminotransferase 18 U/L (0-31); Albumin Level 4.1 g/dL (3.5-5.0); Alkaline Phosphatase 98 U/L (39-117); Anion Gap 12 (12-20); Aspartate Amino Transferase 20 U/L (5-31); Bilirubin Direct 0.3 mg/dL (0.0-0.5); Bilirubin Total 0.7 mg/dL (0.0-1.0); Blood Urea Nitrogen 18 mg/dL (9-16); Calcium 10.1 mg/dL (8.4-10.2); Carbon Dioxide 21 mmol/L (22-29); Chloride 109 mmol/L (96-108); Creatinine Clr Calc Pharmacy 47.3; Estimated Glomerular Filt Rate > 60; Glucose Random 138 mg/dL (60-115); Potassium 3.4 mmol/L (3.3-5.1); Sodium 139 mmol/L (135-145); Total Protein 7.3 g/dL (6.5-8.0)
[2023-03-01 08:22] LABS: Lactic Acid 1.8 mmol/L (0.5-2.0)
--- NOTE | 2023-03-01 08:54 | PC.NURSE ---
this RN resumed care of pt at this time. pt to CT at this time.
--- NOTE | 2023-03-01 09:18 | PC.NURSE ---
pt returned from CT - states that IV access infiltrated. CT attempted to replace access twice w/o success.
[2023-03-01 09:22] VITALS: BP 186/58; PULSE 62; RESP 16; O2SAT 98
[2023-03-01 09:23] VITALS: BP 186/53
--- NOTE | 2023-03-01 09:32 | PC.NURSE ---
pt hypertensive at this time. home BP meds verified - pt did not take medication this am. provider aware/ordered meds at this time.
[2023-03-01] MEDS: atenoloL 50 MG TABLET PO (09:35)
[2023-03-01] MEDS: lisinopriL 20 MG TABLET PO (09:35)
--- NOTE | 2023-03-01 09:43 | PC.NURSE ---
medication administered per provider order. new 22gIV placed in the left forearm.
[2023-03-01] MEDS: iohexoL 350 MG/ML 100 ML INFUS..BTL IV (10:32)
[2023-03-01 10:33] VITALS: BP 188/60; BP 205/69
--- NOTE | 2023-03-01 10:34 | PC.NURSE ---
pt remains hypertensive despite medication administration. will reassess BP again shortly.
--- NOTE | 2023-03-01 11:55 | PC.NURSE ---
pt speaking w/ ED provider at this time.
[2023-03-01 12:12] LABS: Basophils Percent Auto 0.2 % (0-2); Eosinophils Percent Auto 0.3 % (0-4); Hematocrit 41.3 % (37.0-47.0); Hemoglobin 13.9 g/dl (12.0-16.0); Imm Gran Abs Auto 0.05 X10*3/uL (0.00-0.03); Imm Gran Pct Auto 0.4 % (0.0-0.4); Lymphocytes Absolute Auto 1.8 X10*3/uL (1.2-4.9); Lymphocytes Percent Auto 15.1 % (20-40); MANUAL DIFF FLAG SCAN; Mean Corpuscular HGB Conc 33.7 g/dl (31.0-35.0); Mean Corpuscular Hemoglobin 31.6 pg (27.0-33.0); Mean Corpuscular Volume 93.9 fL (80.0-98.0); Monocytes Absolute Auto 0.8 X10*3/uL (0.1-1.2); Monocytes Percent Auto 6.9 % (2-11); Neutrophils Percent Auto 77.1 % (45-73); PLT CLUMP 1; Red Cell Distribution Width 13.5 % (11.0-16.0); SCAN SMEAR FLAG 1
[2023-03-01 12:13] LABS: White Blood Count 11.6 X10*3/uL (4.8-10.8)
[2023-03-01 12:34] LABS: Platelet Count 239 X10*3/uL (160-400)
[2023-03-01 13:20] LABS: SLIDE REVIEW VERIFIED
== END 2023-03-01 12:37 | disposition home or self-care (01) ==
PROVIDERS: Nurse Practitioner Family; Emergency Provider Student in an Organized Health Care Education/Training Program; PCP Internal Medicine
DX: K52.9 Noninfective gastroenteritis and colitis, unspecified (principal); I10 Essential (primary) hypertension; Z86.73 Personal history of transient ischemic attack (TIA), and cerebral infarction without residual deficits; Z79.82 Long term (current) use of aspirin
CPT/HCPCS: 36415; 74178; 80048; 80076; 82272; 83605; 85025; 85610; 99284; 99285; Q9967

== ENCOUNTER 2023-03-11 14:34 | Outpatient (REF) | payer OTHER, SELFPAY ==
[2023-03-11 14:47] LABS: MANUAL DIFF FLAG NO
[2023-03-11 15:00] LABS: Basophils Percent Auto 0.3 % (0-2); Eosinophils Absolute Auto 0.3 X10*3/uL (0.0-0.4); Eosinophils Percent Auto 2.6 % (0-4); Hemoglobin 12.7 g/dl (12.0-16.0); Imm Gran Abs Auto 0.04 X10*3/uL (0.00-0.03); Imm Gran Pct Auto 0.4 % (0.0-0.4); Lymphocytes Percent Auto 20.1 % (20-40); Mean Corpuscular HGB Conc 33.4 g/dl (31.0-35.0); Mean Corpuscular Hemoglobin 31.4 pg (27.0-33.0); Mean Corpuscular Volume 93.8 fL (80.0-98.0); Mean Platelet Volume 9.7 fL (9.4-12.3); Monocytes Absolute Auto 0.9 X10*3/uL (0.1-1.2); Monocytes Percent Auto 8.9 % (2-11); Neutrophils Absolute Auto 6.8 x10*3/uL (2.0-8.3); Neutrophils Percent Auto 67.7 % (45-73); Platelet Count 295 X10*3/uL (160-400); Red Blood Count 4.05 X10*6/uL (4.20-5.50); Red Cell Distribution Width 13.4 % (11.0-16.0); White Blood Count 10.1 X10*3/uL (4.8-10.8)
[2023-03-11 15:33] LABS: Alanine Aminotransferase 15 U/L (0-31); Alkaline Phosphatase 82 U/L (39-117); Anion Gap 13 (12-20); Aspartate Amino Transferase 17 U/L (5-31); Bilirubin Total 0.4 mg/dL (0.0-1.0); Blood Urea Nitrogen 21 mg/dL (9-16); C Reactive Protein 0.17 mg/dL (< or = 0.50); Calcium 9.7 mg/dL (8.4-10.2); Carbon Dioxide 22 mmol/L (22-29); Chloride 110 mmol/L (96-108); Estimated Glomerular Filt Rate > 60; Glucose Random 94 mg/dL (60-115); Potassium 3.7 mmol/L (3.3-5.1); Sodium 141 mmol/L (135-145); Total Protein 6.9 g/dL (6.5-8.0)
== END 2023-03-11 14:35 | disposition home or self-care (01) ==
LOC: HO.LAB 14:34
PROVIDERS: PCP Internal Medicine; Visit Provider Internal Medicine
DX: I10 Essential (primary) hypertension (principal)
CPT/HCPCS: 36415; 80053; 85025; 86140

== ENCOUNTER 2023-04-03 07:43 | Emergency (ER) | payer OTHER, SELFPAY ==
--- NOTE | ~2023-04-03 | CT_ITS ---
EXAMINATION: CT HEAD W/O IV CONTRAST CT CERVICAL SPINE W/O IV CONTRAST CLINICAL INFORMATION: History of fall with neck pain. Head strike. COMPARISON: CT angiography head and neck from 06/24/2022. Brain MRI from 06/25/2022. TECHNIQUE: Head - Contiguous axial imaging of the head was performed from the skull base to the vertex without the administration of intravenous contrast, and axial images are reconstructed at 0.625 mm, 2.5 mm and 5 mm slice thickness. Cervical spine - A volumetric, helical CT acquisition of the cervical spine was obtained without contrast; in addition to the standard set of axial images, multiplanar reformatted images were provided in the coronal and sagittal imaging planes. This CT examination was performed using dose optimization techniques as appropriate, variously including the following: *Automated exposure control *Adjustment of mA and/or kV according to patient size (this includes techniques or standardized protocols for targeted exams where dose is matched to indication/reason for exam; i.e. extremities or head) *Use of iterative reconstruction technique DLP: 959 mGy-cm (total) FINDINGS: HEAD: No intracranial hemorrhage, extra-axial surface collection, focal mass effect or midline shift. 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 Chronic small vessel ischemic changes within supratentorial white matter. The parenchymal volume loss is associated with chronic stable prominence of ventricles and sulci; no hydrocephalus. No acute abnormalities within the posterior fossa. The cerebellar tonsils are normal position. No calvarial fracture. The paranasal sinuses and mastoid air cells are well aerated. No fracture or malalignment at either temporomandibular joint. Prior ocular lens extractions. CERVICAL SPINE: The craniocervical junction is normal. The occipital condyles, dens and atlantodental articulation are intact. There is osteophyte formation at the anterior atlantodental articulation. Chronic multilevel facet arthropathy, predominantly on the left at C2-C3, C3-C4 and C4-C5 although observed to lesser degrees at other levels. Chronic approximately 0.4 cm of degenerative anterolisthesis of C4 on C5, unchanged compared to 06/24/2022. Degenerative loss of disc height is severe at C5-C6 and moderate at C6-C7. There appears to be moderate to high-grade left-sided neural foraminal stenosis at C4-C5, moderate bilateral neural foraminal stenosis at C5-C6 and mild bilateral foraminal stenosis at C6-C7. The vertebral body heights and alignment are maintained. No fractures in the anterior or posterior elements. No prevertebral soft tissue edema or soft tissue hematoma. Again noted is the chronically enlarged heterogeneous left thyroid lobe with cystic and solid components and scattered calcifications, similar in appearance compared to 06/24/2022. Please refer to thyroid ultrasound from 01/22/2021. A smoothly marginated cystic-appearing structure occupying the right vallecula has a stable appearance compared to 11/22/2020 and 06/24/2022. 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 CT/CT cervical spine wo IV con IMPRESSION: * No intracranial hemorrhage or other acute intracranial pathology compared to 06/24/2022. * No fractures within the chronically degenerated cervical spine. The disc degenerative change in the cervical spine is worst at C5-C6. There is chronic degenerative anterolisthesis at C4-C5. * A few old incidental findings are detected, as noted above, included chronically enlarged, heterogeneous nodular left thyroid. Please refer to thyroid ultrasound from 01/22/2021 and thyroid scintigraphy exam from 11/28/2021.
[2023-04-03 07:45] VITALS: BP 198/77; PULSE 86; RESP 16; TEMP 37; O2SAT 100; BMI 24.6
--- NOTE | 2023-04-03 08:05 | ED.FALL ---
HPI - Fall General Chief Complaint: Fall Stated Complaint: fall head inj 04 01 23 Time Seen by Provider: 04/03/23 08:05 Source: patient Mode of arrival: ambulatory Limitations: no limitations History of Present Illness HPI Narrative: This is an 87-year-old female history of adjustment disorder with anxiety presenting to the emergency department status post fall 2 days ago, patient reports she was sitting on a chair, the chair broke, causing her to fall to the ground, she reports she hit her head, no loss of consciousness. She remembers the entire episode. Has not had any issues since then. No complaints today she is just nervous. Patient denies visual disturbances, dizziness, weakness, headache, chest pain, shortness of breath, nausea, vomiting, abdominal pain, preceding symptoms to fall. Related Data Home Medications Medication Instructions Recorded Confirmed atenolol 50 mg tablet 50 mg PO BID 10/30/21 03/01/23 chlorhexidine gluconate 0.12 % 15 ml PO BID 06/24/22 06/24/22 mouthwash lisinopril 20 mg tablet 20 mg PO DAILY 06/24/22 03/01/23 Previous Rx's Medication Instructions Recorded aspirin 81 mg chewable tablet 81 mg PO DAILY #30 tabs 06/25/22 atorvastatin 80 mg tablet 80 mg PO BEDTIME #30 tabs 06/25/22 sennosides 8.6 mg tablet (senna) 8.6 mg PO BEDTIME #30 tabs 09/30/22 Allergies Allergy/AdvReac Type Severity Reaction Status Date / Time No Known Allergies Allergy Verified 04/03/23 07:57 [No Known Allergies*] Review of Systems Review of Systems: Constitutional : No Weight loss, No Fever, No Chills, No Fatigue, No Malaise ENT/Mouth : No sore throat, No Rhinorrhea Eyes: No Eye Pain, No Swelling, No Redness Cardiovascular : No Chest Pain, No SOB, No Dyspnea on Exertion, No Orthopnea, No Edema, No Palpitations Respiratory : No Cough, No Sputum, No Wheezing Gastrointestinal : No Nausea, No Vomiting, No Diarrhea, No Constipation, No abdominal Pain, No Hematochezia, No Melena Genitourinary : No Dysuria, No Urinary Frequency, No Hematuria, Musculoskeletal : No joint pain, No Myalgias, No Joint Swelling Skin : No Skin Lesions, No rash Neuro : No Weakness, No Numbness, No Dizziness, No Headache Psych : No Anxiety/Panic, No Depression All other systems reviewed and are negative Yes all other systems are reviewed and are negative [facility] Past Medical History Attestation statement: The following information was validated with the patient. Source: old records reviewed and nursing notes reviewed Medical History Acute adjustment disorder with anxiety Primary insomnia Chest pain Hx of thyroid cyst Elevated cholesterol HTN (hypertension) Surgical History Hx of colonoscopy Hx of excision of mass Hx of cataract extraction Family History Family History Brother Eye cancer Brother Abscess of pharynx or nasopharynx Social History Social History Household Members: None Housing: House Do you presently have visiting nurse or other home services: No Alcohol intake: never Patient Tobacco Use Status: Never used Tobacco Smoked in Last 30 Days: No Use of substances other than those prescribed or required for medical reasons: No Advance Directives: No Advance Directives Information Provided: Yes service: No Current occupational status: retired Physical Exam Vital Signs: Vital Signs: Last Vital Signs Temp 98.2 F 04/03/23 08:25 Pulse 60 04/03/23 08:25 Resp 16 04/03/23 08:25 BP 187/68 H 04/03/23 08:25 Pulse Ox 100 04/03/23 07:45 O2 Del Method Room Air 04/03/23 07:45 BMI result Body Mass Index 24.6 vss Appearance: Alert.? Oriented X3.? No acute distress.? Head: Normocephalic, atraumatic, no step-offs or deformities Eyes: Pupils equal, round and reactive to light.? CVS: Normal heart rate and rhythm.? Pulses normal.? Respiratory: No respiratory distress.? Breath sounds normal.? Abdomen: Soft and nontender.? Skin: Skin warm and dry.? Normal skin color.? Normal skin turgor.? Extremities: No lower extremity edema.? No calf ttp. 5/5 strength to bilateral upper and lower extremities Neuro: Oriented X 3.? No motor deficit.? No sensory deficit. CN 2-12 intact . Normal finger to nose, heel to bain. Steady tandem gait normal coordination NIHSS-0 Course Reevaluation(s) Reevaluation #1: CT head no intracranial hemorrhage or acute intracranial pathology. No fractures within the chronically degenerated cervical spine. Degenerative disc disease noted. Noted to have a nodular left thyroid advised her to follow up with PCP for ultrasound however she tells me that she is already aware of this finding and is currently being followed for this. Likely concussion. Patient without headache at this time. Will give handout on post concussive syndrome. Educated patient on diagnosis and treatment plan, answered all question, patient verbalizes understanding. At this time patient will be discharged home, advised to return with new or worsening symptoms. Educated on worrisome signs and symptoms and when to return. At this time I feel comfortable discharge home. Time: 10:12 Medical Decision Making Medical Decision Making [facility] Narrative: [id number] 87-year-old female presents with fall that occurred 2 days ago, patient, and because she is worried there could be something wrong although asymptomatic. Physical exam History and physical exam likely concussion with closed head trauma. Unlikely intracranial hemorrhage, stroke, posterior stroke. No signs of traumatic injury to head, neck, chest, abdomen or pelvis. Unlikely internal bleeding. Unlikely metabolic derangements, cardiac etiology. Plan at this time CT head, cervical spine. Differential Diagnosis Differential Diagnoses: The differential diagnosis associated with the presentation includes History and physical exam likely concussion with closed head trauma. Unlikely intracranial hemorrhage, stroke, posterior stroke. No signs of traumatic injury to head, neck, chest, abdomen or pelvis. Unlikely internal bleeding. Unlikely metabolic derangements, cardiac etiology. Admission/Observation Consideration of admission/observation: Escalation of care including admission/observation considered Unlikely Lab Data Labs: No indication Independent Interpretation I performed an independent interpretation of an: CT Scan Radiology Impression Discussion of test interpretation with radiology: I have reviewed the radiologist's reading. External Record Review External record reviewed: Inpatient record, Office record, Outpatient record, Prior outpatient labs, Prior outpatient radiology, Primary care record and Outside ED record Chronic Conditions Patient?s care impacted by: Other (Adjustment disorder.) Discharge Plan Discharge Clinical Impression: Fall, Closed head injury, Concussion Patient Disposition: Home, Self-Care Instructions: Head Injury (ED), Post Concussion Syndrome (ED), Fall Prevention (ED) Additional Instructions: Take your medications as prescribed. If you were prescribed antibiotics today, it is important that you take your medication to their entirety, do not skip any doses, do not finish them early. Follow-up with your primary care provider this week. Return to the emergency department with new or worsening symptoms. Such as fevers, chills, chest pain, shortness of breath, nausea, vomiting, dizziness, headache, vision changes, lethargy In case of emergency call 911 Follow-up with your PCP for thyroid nodule. Return with any signs of post concussive syndrome CT/CT cervical spine wo IV con IMPRESSION: * No intracranial hemorrhage or other acute intracranial pathology compared to 06/24/2022. * No fractures within the chronically degenerated cervical spine. The disc degenerative change in the cervical spine is worst at C5-C6. There is chronic degenerative anterolisthesis at C4-C5. * A few old incidental findings are detected, as noted above, included chronically enlarged, heterogeneous nodular left thyroid. Please refer to thyroid ultrasound from 01/22/2021 and thyroid scintigraphy exam from 11/28/2021. Prescriptions: No Action sennosides [senna] 8.6 mg tablet 8.6 mg PO BEDTIME Qty: 30 0RF atenolol 50 mg tablet 50 mg PO BID lisinopril 20 mg tablet 20 mg PO DAILY chlorhexidine gluconate 0.12 % mouthwash 15 ml PO BID atorvastatin 80 mg Tablet 80 mg PO BEDTIME Qty: 30 0RF aspirin 81 mg Tablet,Chewable 81 mg PO DAILY Qty: 30 0RF Referrals: Berto Belle MD [Primary Care Provider] - 2 days
[2023-04-03 08:25] VITALS: BP 187/68; PULSE 60; RESP 16; TEMP 36.8
[2023-04-03 10:20] VITALS: BP 176/68; PULSE 76; RESP 16; O2SAT 98
== END 2023-04-03 10:22 | disposition home or self-care (01) ==
PROVIDERS: Emergency Provider Emergency Medicine; PCP Internal Medicine
DX: S06.0X0A Concussion without loss of consciousness, initial encounter (principal); R51.9 Headache, unspecified; M54.2 Cervicalgia; W07.XXXA Fall from chair, initial encounter; Y93.9 Activity, unspecified; Y92.9 Unspecified place or not applicable; Y99.9 Unspecified external cause status
CPT/HCPCS: 70450; 72125; 99284

== ENCOUNTER 2023-09-08 14:14 | Outpatient (REF) | payer OTHER, SELFPAY ==
[2023-09-08 16:43] LABS: TSH reflex Free T4 0.52 uIU/mL (0.32-4.0)
[2023-09-09 09:39] LABS: Triiodothyronine T3 Free 3.3 pg/mL (2.3-4.2)
== END 2023-09-08 14:15 | disposition home or self-care (01) ==
LOC: HO.LAB 14:14
PROVIDERS: PCP Internal Medicine; Visit Provider Internal Medicine Endocrinology, Diabetes & Metabolism
DX: E05.90 Thyrotoxicosis, unspecified without thyrotoxic crisis or storm (principal)
CPT/HCPCS: 36415; 84443; 84481

== ENCOUNTER 2024-01-12 07:58 | Emergency (ER) | payer OTHER, SELFPAY ==
--- NOTE | ~2024-01-12 | XR_ITS ---
EXAMINATION: XR CHEST CLINICAL INFORMATION: Cough. COMPARISON: Chest radiograph dated 06/24/2022. TECHNIQUE: 2 views of the chest were obtained. FINDINGS: No airspace consolidation. No pleural effusion or pneumothorax. Stable cardiomediastinal silhouette. No acute osseous abnormality. XR/XR chest 2V IMPRESSION: No acute cardiopulmonary findings. Electronically signed by: Christ Rangel MD 01/12/2024 10:04 AM [facility] [place]
[2024-01-12 08:03] VITALS: BP 204/65; PULSE 69; RESP 18; TEMP 36.4; O2SAT 97; BMI 23.0
[2024-01-12 09:08] LABS: MANUAL DIFF FLAG NO
[2024-01-12 09:09] LABS: Basophils Percent Auto 0.5 % (0-2); Eosinophils Percent Auto 0.5 % (0-4); Hematocrit 38.5 % (37.0-47.0); Hemoglobin 13.1 g/dl (12.0-16.0); Imm Gran Abs Auto 0.03 X10*3/uL (0.00-0.03); Imm Gran Pct Auto 0.3 % (0.0-0.4); Lymphocytes Absolute Auto 0.9 X10*3/uL (1.2-4.9); Mean Corpuscular Hemoglobin 32.1 pg (27.0-33.0); Mean Corpuscular Volume 94.4 fL (80.0-98.0); Mean Platelet Volume 9.7 fL (9.4-12.3); Monocytes Absolute Auto 0.6 X10*3/uL (0.1-1.2); Monocytes Percent Auto 7.2 % (2-11); Neutrophils Absolute Auto 6.9 x10*3/uL (2.0-8.3); Neutrophils Percent Auto 80.5 % (45-73); Platelet Count 262 X10*3/uL (160-400); Red Blood Count 4.08 X10*6/uL (4.20-5.50); Red Cell Distribution Width 12.7 % (11.0-16.0); White Blood Count 8.6 X10*3/uL (4.8-10.8)
[2024-01-12 09:23] LABS: Alanine Aminotransferase 15 U/L (0-31); Albumin Level 3.9 g/dL (3.5-5.0); Alkaline Phosphatase 78 U/L (39-117); Anion Gap 12 (12-20); Aspartate Amino Transferase 19 U/L (5-31); Bilirubin Direct 0.3 mg/dL (0.0-0.5); Bilirubin Total 0.6 mg/dL (0.0-1.0); Blood Urea Nitrogen 17 mg/dL (9-16); Calcium 9.8 mg/dL (8.4-10.2); Carbon Dioxide 24 mmol/L (22-29); Chloride 109 mmol/L (96-108); Creatinine Clr Calc Pharmacy 41.7; Estimated Glomerular Filt Rate > 60; Glucose Random 131 mg/dL (60-115); Lipase 29 U/L (8-78); Sodium 141 mmol/L (135-145); Total Protein 6.9 g/dL (6.5-8.0)
--- NOTE | 2024-01-12 09:45 | ED.GENADULT ---
HPI - General Adult General Chief complaint: General Medical Stated complaint: throat issue Time Seen by Provider: 01/12/24 08:53 Source: patient Mode of arrival: ambulatory Limitations: no limitations History of Present Illness HPI narrative: 88-year-old female past medical history of anxiety insomnia and chest pain presents emergency department after having a cough and she states coughing up blood last week. Patient has any falls or injuries denies nausea vomiting or diarrhea her cough is better today. Related Data Home Medications ?Medication ?Instructions ?Recorded ?Confirmed atenolol 50 mg tablet 50 mg PO BID 10/30/21 03/01/23 chlorhexidine gluconate 0.12 % 15 ml PO BID 06/24/22 06/24/22 mouthwash lisinopril 20 mg tablet 20 mg PO DAILY 06/24/22 03/01/23 Previous Rx's ?Medication ?Instructions ?Recorded aspirin 81 mg chewable tablet 81 mg PO DAILY #30 tabs 06/25/22 atorvastatin 80 mg tablet 80 mg PO BEDTIME #30 tabs 06/25/22 sennosides 8.6 mg tablet (senna) 8.6 mg PO BEDTIME #30 tabs 09/30/22 Allergies Allergy/AdvReac Type Severity Reaction Status Date / Time No Known Allergies Allergy Verified 01/12/24 08:07 [No Known Allergies*] Review of Systems Review of Systems: Review of systems: General: Patient denies any fever chills recent illness or falls Musculoskeletal: Denies back pain or body aches or other injuries HEENT: denies headache, runny nose, ear pain Respiratory: , cough no shortness of breath Cardiovascular: no chest pain or palpitations : denies dysuria, frequency Abdomen: no nausea vomiting denies abdominal pain Extremities: no swelling, no pain Skin: no diaphoresis Yes all other systems are reviewed and are negative PMFSH Past Medical History Medical History Acute adjustment disorder with anxiety Primary insomnia Chest pain Hx of thyroid cyst Elevated cholesterol HTN (hypertension) Surgical History Hx of colonoscopy Hx of excision of mass Hx of cataract extraction Family History Family History Brother Eye cancer Brother Abscess of pharynx or nasopharynx Social History Social History Household Members: None Housing: House Do you presently have visiting nurse or other home services: No Alcohol intake: never Patient Tobacco Use Status: Never used Tobacco Advance Directives: Yes Advance Directives Information Provided: Yes Advance Directives on File: No service: No Current occupational status: retired Physical Exam ED Vital Signs: Vital Signs - 24 hr 01/12/24 08:03 Temperature 97.6 F Pulse Rate 69 Respiratory Rate 18 Blood Pressure 204/65 H Pulse Oximetry 97 Oxygen Delivery Method Room Air BMI result Body Mass Index 23.0 General: Well-appearing well-nourished in no signs of distress HEENT: Normocephalic atraumatic Neck: No signs of JVD, no masses no tenderness or lymphadenopathy Cardiovascular: Regular rate and rhythm Respiratory: Clear to auscultation bilaterally Abdomen: Soft nontender no masses Extremities: Normal pedal pulses no signs of edema Skin: Dry warm no rashes Back: No tenderness full ROM Course Course Course Narrative: Looks well cough is chronic has associated insomnia which is also chronic. Negative XR and labs okay with the plan to go home. Medical Decision Making Medical Decision Making [facility] Narrative: Patient is well I do not see need for any further workup x-ray and labs are all unremarkable I will send the patient home with close PCP follow up. Differential Diagnosis Differential Diagnoses: The differential diagnosis associated with the presentation includes Pneumonia PEs on the differential patient is not tachycardic or hypoxic has no risk factors for PE other than age. Admission/Observation Consideration of admission/observation: Escalation of care including admission/observation considered Lab Data [facility] Lab Attestation statement: I reviewed the patient's lab results. 01/12/24 09:03 01/12/24 09:03 Labs: Lab Results 01/12/24 Range/Units 09:03 WBC 8.6 (4.8-10.8) X10*3/uL RBC 4.08 L (4.20-5.50) X10*6/uL Hgb 13.1 (12.0-16.0) g/dl Hct 38.5 (37.0-47.0) % MCV 94.4 (80.0-98.0) fL MCH 32.1 (27.0-33.0) pg MCHC 34.0 (31.0-35.0) g/dl RDW 12.7 (11.0-16.0) % Plt Count 262 (160-400) X10*3/uL MPV 9.7 (9.4-12.3) fL Immature Gran % (Auto) 0.3 (0.0-0.4) % Neut % (Auto) 80.5 H (45-73) % Lymph % (Auto) 11.0 L (20-40) % [place] % (Auto) 7.2 (2-11) % Eos % (Auto) 0.5 (0-4) % Baso % (Auto) 0.5 (0-2) % Lymph # (Auto) 0.9 L (1.2-4.9) X10*3/uL [place] # (Auto) 0.6 (0.1-1.2) X10*3/uL Eos # (Auto) 0.0 (0.0-0.4) X10*3/uL Baso # (Auto) 0.0 (0.0-0.2) X10*3/uL Abs Immat Gran (auto) 0.03 (0.00-0.03) X10*3/uL Absolute Neuts (auto) 6.9 (2.0-8.3) x10*3/uL Absolute Nucleated RBC 0.000 (0.0-0.012) X10*3/uL Nucleated RBC % (auto) 0.0 (0.0-0.2) /100WBC Sodium 141 (135-145) mmol/L Potassium 4.0 (3.3-5.1) mmol/L Chloride 109 H (96-108) mmol/L Carbon Dioxide 24 (22-29) mmol/L Anion Gap 12 (12-20) BUN 17 H (9-16) mg/dL Creatinine 0.80 (0.5-1.4) mg/dL Estim Creat Clear Calc 41.7 Estimated GFR > 60 Random Glucose 131 H (60-115) mg/dL Calcium 9.8 (8.4-10.2) mg/dL Total Bilirubin 0.6 (0.0-1.0) mg/dL Direct Bilirubin 0.3 (0.0-0.5) mg/dL AST 19 (5-31) U/L ALT 15 (0-31) U/L Alkaline Phosphatase 78 (39-117) U/L Total Protein 6.9 (6.5-8.0) g/dL Albumin 3.9 (3.5-5.0) g/dL Lipase 29 (8-78) U/L Independent Interpretation I performed an independent interpretation of an: EKG and Plain X-Ray Radiology Impression Discussion of test interpretation with radiology: I discussed test interpretation with the radiologist and I have reviewed the radiologist's reading. Discharge Plan Discharge Clinical Impression: Cough Patient Disposition: Home, Self-Care Instructions: Acute Cough (ED) Additional Instructions: You were seen today for a cough You had Xr and labs done which are all normal Please call to follow up with your doctor. Prescriptions: No Action sennosides [senna] 8.6 mg tablet 8.6 mg PO BEDTIME Qty: 30 0RF atenolol 50 mg tablet 50 mg PO BID lisinopril 20 mg tablet 20 mg PO DAILY chlorhexidine gluconate 0.12 % mouthwash 15 ml PO BID atorvastatin 80 mg Tablet 80 mg PO BEDTIME Qty: 30 0RF aspirin 81 mg Tablet,Chewable 81 mg PO DAILY Qty: 30 0RF Print Language: Serbian
[2024-01-12 09:52] LABS: Influenza A PCR NEGATIVE (Negative); Influenza B PCR NEGATIVE (Negative); Resp Syncy Virus RNA Qual PCR NEGATIVE (Negative); SARS COV2 PCR INHOUSE NEGATIVE (Negative)
[2024-01-12] MEDS: Benzonatate 100 MG CAPSULE PO (10:06)
[2024-01-12 10:09] VITALS: BP 161/63; PULSE 54; RESP 18; TEMP 36.6; O2SAT 96
[2024-01-12 10:12] VITALS: BP 161/63; PULSE 54; RESP 18; TEMP 36.6; O2SAT 96
== END 2024-01-12 10:13 | disposition home or self-care (01) ==
PROVIDERS: Emergency Provider Student in an Organized Health Care Education/Training Program; PCP Internal Medicine
DX: R05.9 Cough, unspecified (principal); R07.9 Chest pain, unspecified; G47.00 Insomnia, unspecified; I10 Essential (primary) hypertension; Z03.818 Encounter for observation for suspected exposure to other biological agents ruled out
CPT/HCPCS: 0241U; 36415; 71046; 80048; 80076; 83690; 85025; 99283; 99284

== ENCOUNTER 2024-07-30 10:53 | Outpatient (AMB) | payer OTHER, SELFPAY ==
--- OUTSIDE RECORDS SUMMARY | 2024-07-30 10:58 | XMS_ITS | Clinical Summary ---
Author Organization [facility] Address [address] [place] [address] Care Team Providers Care Powder Compounder Name Role Phone Unavailable Primary Care Provider Unavailabl e Immunizations Immunization Administration Dates Next Due Influenza, seasonal, injectable, preservative fr ee 11/26/2023 Social History Tobacco Use Types Packs/Day Years Used Date Smoking Tobacco: Never Assessed Comments Unknown Sex and Gender Information Value Date Recorded Sex Assigned at Female 11/27/2023 8:25 AM EDT Legal Sex Female 8:22 AM EDT Gender Identity Female 11/27/2023 8:25 AM EDT Sexual Orientation Straight 11/27/2023 8: 25 AM EDT Plan of Treatment Health Maintenance Due Date Last Done Comments Depression Screening 1935 SDOH Screening 1935 Alcohol/Substance Use Screening 1949 Tobacco Screening 1947 DTaP/Tdap/Td Vaccines (1 - Tdap) 1956 Pneumococcal Vaccine: 50+ Ye ars (1 of 1 - PCV) 08/18/1987 Zoster Vaccines (1 of 2) 08/18/1987 RSV Patients and Pa tients Aged 60 years or older (1 - 1-dose 75+ series) 2012 COVID-19 Vaccine (2023-2 5 season) 2023 Influenza Vaccine Completed 11/26/2023 HIB Vaccines Aged Out No longer eligi ble based on patient's age to complete this topic HPV Vaccines Aged Out No longer eligi ble based on patient's age to complete this topic Hepatitis A Vaccines Aged Out No long er eligible based on patient's age to complete this topic Hepatitis B Vaccines Aged Out No long er eligible based on patient's age to complete this topic IPV Vaccines Aged Out No longer eligi ble based on patient's age to complete this topic Meningococcal B Vaccine Aged Out No l onger eligible based on patient's age to complete this topic Meningococcal Vaccine Aged Out No johann daniel eligible based on patient's age to complete this topic RSV under 20 months Aged Out No longe r eligible based on patient's age to complete this topic Rotavirus Vaccines Aged Out No longer eligible based on patient's age to complete this topic Insurance [facility] [employer] Member Subscriber Plan / Payer ( fective 2023-Present) Name:Ruthie Tolbert Relation to Subscriber:Self Name:Ruthie Tolbert Payer ID:Not on file Group ID:Not on file Type:Not on file Address: [place] [id number] [facility]
--- NOTE | 2024-07-30 11:08 | A.OFFPC_ITS ---
Vital Signs 07/30/24 11:09 Height 5 ft 3 in Weight 142 lb BMI 25.2 BP 138/82 Blood Pressure Location Rt brachial Position Sitting Pulse 78 Pulse Source Pulse Oximeter Temp 97.4 F Temp Source Axillary Pulse Oximetry (%) 99 Oxygen Delivery Method Room Air Intake Visit Reasons: Routine Commercial Property Manager Required: No Accompanied by: Self / Same As Patient Allergies No Known Allergies [No Known Allergies*] Allergy (Verified 07/30/24 11:09) Tobacco use date assessed: 07/30/24 Fall risk assessment: 1 Fall in past year Last assessed Fall Risk: 07/30/24 Dental Screening Dental Screen Date: 07/30/24 Did you have a dental visit in the last 12 months?: Yes Did you have a dental problem in the last 6 months where you did not have access to dental care?: No HPI HPI Comments History of Present Illness Details 88 year old female with a past medical h istory of hypertension, hyperlipidemia, presenting for follow up. Last seen by pcp Nov CV: on lisinopril, simvastatin, atenolol, ASA. BP controlled. Denies chest pain, exertional dyspnea Follow with Dr Braun for history of thyroid nodule She has a raised dome lesion on the chest for the past ~1 year. Does not follow with dermatology Insomnia-has tried multiple medications in the past. Failed trazodone but unsure of other trials Follows with Dr Parra ROS see HPI PHYSICAL EXAM: GENERAL: Alert and oriented x 3. NAD EYES: EOMI. Anicteric. HENT: Moist mucous membranes. No scleral icterus. No cervical lymphadenopathy. LUNGS: Clear to auscultation bilaterally. CARDIOVASCULAR: Regular rate and rhythm. No murmur. No JVD. ABDOMEN: Soft, non-tender +bs EXTREMITIES: No edema. Non-tender. SKIN: Dome like pink lesion with central inversion concerning for BCC NEUROLOGIC: No focal neurological deficits. CN II-XII grossly intact PSYCHIATRIC: Cooperative. Appropriate mood and affect [facility] Medical History Acute adjustment disorder with anxiety Primary insomnia Chest pain Hx of thyroid cyst Elevated cholesterol HTN (hypertension) Surgical History Hx of colonoscopy Hx of excision of mass Hx of cataract extraction Family History Brother Eye cancer Brother Abscess of pharynx or nasopharynx Mother No problems noted. Father No problems noted. Social History Household Members: None Housing: House Do you presently have visiting nurse or other home services: No Alcohol intake: never Patient Tobacco Use Status: Never used Tobacco e-Cigarette/Vaping Use: Never Used service: No Current occupational status: retired Cognitive needs: No Hearing needs: No Vision needs: Yes (rx glasses) Questionnaire PHQ-9 Over the last 2 weeks, how often have you been bothered by any of the following problems? 1. Little interest or pleasure in doing things: not at all 2. Feeling down, depressed, or hopeless: not at all 3. Trouble falling or staying asleep, or sleeping too much: not at all 4. Feeling tired or having little energy: not at all 5. Poor appetite or overeating: not at all 6. Feeling bad about yourself - or that you are a failure or have let yourself or your family down: not at all 7. Trouble concentrating on things, such as reading the newspaper or watching television: not at all 8. Moving or speaking so slowly that other people could have noticed. Or the opposite - being so fidgety or restless that you have been moving around a lot more than usual: not at all 9. Thoughts that you would be better off or of hurting yourself in some way: not at all Total score: 0 Source: Developed by Drs. Demarcus Peñaloza, Lisa Barraza, Collin Lovelace and colleagues, with an educational jerrell from [employer]. Thrive Questionnaire Date Thrive assessed: 07/30/24 I am a: Patient Within the past 12 months, did the food you bought not last and you didn't have the money to get more?: Never true Within the past 12 months, did you worry whether your food would run out before you got money to buy more?: Never true Do you have trouble paying for medicines?: No Do you have trouble getting transportation to medical appointments?: No Do you have trouble paying your heating and electricity bill?: No Do you have trouble taking care of your child, family member or friend?: No Do you have trouble with day-to-day activities such as bathing, preparing meals, shopping, managing finances, etc.?: No Are you currently unemployed and looking for a job?: No Are you interested in more education?: No THRIVE Score: 0 AUDIT C Alcohol Use Questionnaire (AUDIT-C) 1. How often do you have a drink containing alcohol?: Never 3. How often do you have six or more drinks on one occasion?: Never Total Score: 0 NILTON-7 AMB Questionnaire NILTON-7 Date NILTON - 7 assessed: 07/30/24 Feeling nervous, anxious, or on edge: 0 = Not at all Not being able to stop or control worryin = Not at all Worrying too much about different things: 0 = Not at all Trouble relaxin = Not at all Being so restless that it is hard to sit still: 0 = Not at all Becoming easily annoyed or irritable: 0 = Not at all Feeling afraid as if something awful might happen: 0 = Not at all Total NILTON-7 score (0-4 normal; 5-9 mild; 10-14 moderate; 15-21 severe): 0 Source: Developed by Drs. Demarcus Peñaloza, Lisa Barraza, Collin Lovelace and colleagues, with an educational jerrell from [employer]. Physical exam (Primary Care) Vital Signs: Last Vital Signs Temp 97.4 F 07/30/24 11:09 Pulse 78 07/30/24 11:09 BP 138/82 07/30/24 11:09 Pulse Ox 99 07/30/24 11:09 Oxygen Delivery Method Room Air 07/30/24 11:09 BMI result Body Mass Index 25.2 Tobacco/Smoking Status: Tobacco use Status Tobacco use date assessed 07/30/24 07/30/24 11:15 Patient Tobacco Use Status Never used Tobacco 07/30/24 11:15 e-Cigarette/Vaping Use Never Used 07/30/24 11:15 PHQ-9: PHQ-9 Score PHQ-9: Total score 0 07/30/24 11:36 Thrive Assessment: Date of Thrive Assessment Date Thrive assessed 07/30/24 07/30/24 11:15 Coding Level of Care Code New Pt Level 4 (10650) Complex EM visit Add On G2211 Diagnoses Skin lesion L98.9 Primary hypertension I10 Hypertension type: primary hypertension Elevated cholesterol E78.00 Primary insomnia F51.01 Assessment & Plan Assessment & Plan (1) Skin lesion: Code(s): L98.9 - Disorder of the skin and subcutaneous tissue, unspecified Category: Medical (2) HTN (hypertension): Code(s): I10 - Essential (primary) hypertension Category: Medical Qualifiers: Hypertension type: primary hypertension Qualified Code(s): I10 - Essential (primary) hypertension (3) Elevated cholesterol: Code(s): E78.00 - Pure hypercholesterolemia, unspecified Category: Medical (4) Primary insomnia: Code(s): F51.01 - Primary insomnia Category: Medical Plan 88 year old to establish care past medical, surgical, social reviewed skin lesion concerning for bcc-surgery referral placed htn adequately controlled Insomnia-trial temazepam Chronic cough-trial omeprazole Orders: Orders IRON PROFILE Today E78.00 - Pure hypercholesterolemia, unspecified, F51.01 - Primary insomnia, I10 - Essential (primary) hypertension, R73.09 - Other abnormal glucose, Z13.0 - Encounter for screening for diseases of the blood and blood-forming organs and certain disorders involving the immune mechanism Hemoglobin A1c Today E78.00 - Pure hypercholesterolemia, unspecified, F51.01 - Primary insomnia, I10 - Essential (primary) hypertension, R73.09 - Other abnormal glucose, Z13.0 - Encounter for screening for diseases of the blood and blood-forming organs and certain disorders involving the immune mechanism Comprehensive Met. Panel Today E78.00 - Pure hypercholesterolemia, unspecified, I10 - Essential (primary) hypertension, R73.09 - Other abnormal glucose, Z13.0 - Encounter for screening for diseases of the blood and blood-forming organs and certain disorders involving the immune mechanism Complete Blood Count Auto Diff Today E78.00 - Pure hypercholesterolemia, unspecified, F51.01 - Primary insomnia, I10 - Essential (primary) hypertension, R73.09 - Other abnormal glucose, Z13.0 - Encounter for screening for diseases of the blood and blood-forming organs and certain disorders involving the immune m echanism TSH reflex Free T4 Today E78.00 - Pure hypercholesterolemia, unspecified, I10 - Essential (primary) hypertension Referrals General Surgery Referral L98.9 - Disorder of the skin and subcutaneous tissue, unspecified Medications: New omeprazole 20 mg PO DAILY 90 caps 0RF temazepam 15 mg PO BEDTIME PRN 30 caps 1RF sleep
[2024-07-30 11:09] VITALS: BP 138/82; PULSE 78; TEMP 36.3; O2SAT 99; BMI 25.2
== END 2024-07-30 11:53 | disposition home or self-care (01) ==
LOC: HO.HMCHD 10:54
PROVIDERS: PCP Internal Medicine; Visit Provider Internal Medicine
DX: L98.9 Disorder of the skin and subcutaneous tissue, unspecified (principal); I10 Essential (primary) hypertension; E78.00 Pure hypercholesterolemia, unspecified; F51.01 Primary insomnia

== ENCOUNTER → 2024-07-30 10:53 | Outpatient (BNVA) | payer OTHER, SELFPAY | PROVIDERS: PCP Internal Medicine; Visit Provider Internal Medicine ==

== ENCOUNTER 2024-08-11 07:15 | Outpatient (REF) | payer OTHER, SELFPAY ==
[2024-08-11 07:36] LABS: MANUAL DIFF FLAG NO
[2024-08-11 07:51] LABS: Basophils Percent Auto 0.3 % (0-2); Eosinophils Absolute Auto 0.3 X10*3/uL (0.0-0.4); Eosinophils Percent Auto 2.9 % (0-4); Hematocrit 41.6 % (37.0-47.0); Hemoglobin 13.4 g/dl (12.0-16.0); Imm Gran Abs Auto 0.02 X10*3/uL (0.00-0.03); Imm Gran Pct Auto 0.2 % (0.0-0.4); Lymphocytes Absolute Auto 1.5 X10*3/uL (1.2-4.9); Lymphocytes Percent Auto 16.3 % (20-40); Mean Corpuscular HGB Conc 32.2 g/dl (31.0-35.0); Mean Corpuscular Hemoglobin 30.5 pg (27.0-33.0); Mean Corpuscular Volume 94.8 fL (80.0-98.0); Mean Platelet Volume 9.6 fL (9.4-12.3); Monocytes Absolute Auto 0.8 X10*3/uL (0.1-1.2); Monocytes Percent Auto 8.6 % (2-11); Neutrophils Absolute Auto 6.7 x10*3/uL (2.0-8.3); Neutrophils Percent Auto 71.7 % (45-73); Platelet Count 269 X10*3/uL (160-400); Red Blood Count 4.39 X10*6/uL (4.20-5.50); Red Cell Distribution Width 13.6 % (11.0-16.0); White Blood Count 9.3 X10*3/uL (4.8-10.8)
[2024-08-11 07:57] LABS: Estimated Average Glucose 117 mg/dL; Hemoglobin A1c % 5.7 % (<6.0)
[2024-08-11 08:33] LABS: Alanine Aminotransferase 26 U/L (0-31); Albumin Level 4.2 g/dL (3.5-5.0); Anion Gap 13 (12-20); Aspartate Amino Transferase 24 U/L (5-31); Bilirubin Total 0.7 mg/dL (0.0-1.0); Blood Urea Nitrogen 26 mg/dL (9-16); Carbon Dioxide 26 mmol/L (22-29); Chloride 110 mmol/L (96-108); Estimated Glomerular Filt Rate > 60; Glucose Random 105 mg/dL (60-115); Iron 48 mcg/dL (30-160); Percent Iron Saturation 24 % (15-50); Potassium 4.4 mmol/L (3.3-5.1); Sodium 145 mmol/L (135-145); Total Iron Binding Capacity 197 mcg/dL (228-428); Total Protein 7.1 g/dL (6.5-8.0); Unsaturated Iron Binding 149 ug/dL
[2024-08-11 08:58] LABS: TSH reflex Free T4 0.47 uIU/mL (0.32-4.0)
[2024-08-11 13:06] LABS: Alkaline Phosphatase 70 U/L (39-117)
== END 2024-08-11 07:16 | disposition home or self-care (01) ==
LOC: HO.LAB 07:15
PROVIDERS: PCP Internal Medicine; Visit Provider Internal Medicine
DX: F51.01 Primary insomnia (principal); Z13.0 Encounter for screening for diseases of the blood and blood-forming organs and certain disorders involving the immune mechanism; R73.09 Other abnormal glucose; E78.00 Pure hypercholesterolemia, unspecified; I10 Essential (primary) hypertension
CPT/HCPCS: 36415; 80053; 83036; 83540; 84443; 85025

== ENCOUNTER 2024-09-06 11:25 | Outpatient (REF) | payer OTHER, SELFPAY ==
--- OUTSIDE RECORDS SUMMARY | 2024-09-06 12:19 | XMS_ITS | Patient Health Record ---
Author Organization [facility] [place] Address [address] [place] [address] Care Team Providers Care Surveillance Operator Name Role Phone Berto Belle MD Primary Care Provider Isma Xavier Unavailable [phone] Allergies Allergen (clinical drug ingredient) Drug/Non Drug Allergy documented on EMR Reaction Allergy Type Onset Date Status Novocain nausea Drug Allergy Active Reason For Referral No Information Medications Medication SIG (Take, Route, Fr equency, Duration) Notes Start Date End Date Status Aspir-Low Active Atenolol 50 MG 1 tablet Orally Once a day; Duration: 30 day(s) Active Simvastatin 10 MG 1 tablet in the even ing Orally Once a day; Duration: 30 day(s) Active busPIRone HCl 30 MG 1 tablet Orally three a day Active Lisinopril 10 MG 1 tablet Orally Once a day; Duration: 30 day(s) Active Social History Tobacco Use: Social History Observation Description Date Details (start date - stop date) Never Smoker NA - NA Tobacco Use/Smoking Question Answer Notes Are you a: nonsmoker Alcohol Screen Question Answer Notes Did you have a drink containing alcohol in the p ast year? No Points 0 Interpretation Negative Tobacco use other than smoking: Question Answer Notes Are you an other tobacco user? No Problems Problem Type SNOMED Code ICD Code Onset Dates Problem Status W/U Status Risk Notes Problem Acquired hallux valgus (37627378) Hallux valgus (acquired), left foot (M20.12) Active confirmed Problem Acquired hallux valgus (16729008) Hallux valgus (acquired), right foot (M20.11) Active confirmed Problem Other hammer toe(s) (acquired), right foot (M20.41) Active confirmed Problem Acquired hammer toe of left foot ([id number] 103) Other hammer toe(s) (acquired), left foot (M20.42) Active confirmed Plan Of Treatment No Information Insurance Providers Payer Name Payer Address Payer Phone Subscriber Number Group Number Insured Name Patient Relationship to Insured Coverage Start Date Coverage End Date [employer] ([facility]) [address] [place] [address] [phone] [id number] Ruthie Duran Self - patient is the insured 1 Medical (General) History Medical History History ICD Code Anxiety CAD (Cholesterol) High blood pressure trouble sleeping nausea from tooth surgery Surgical History Surgery Date(Month/Year) Tooth extraction 06/2020
[2024-09-06 12:30] LABS: INTERNATIONAL NORM RATIO 1.1 (0.9-1.1); Prothrombin Time 12.4 SEC (10.9-12.4)
[2024-09-06 12:32] LABS: Partial Thromboplastin Time 31.2 SEC (26.0-36.8)
[2024-09-09 06:43] LABS: Anti Nuclear Antibody Pattern Nuclear, Nucleolar; Anti Nuclear Antibody Screen POSITIVE (NEGATIVE)
== END 2024-09-06 11:26 | disposition home or self-care (01) ==
LOC: HO.LAB 11:25
PROVIDERS: PCP Internal Medicine; Visit Provider Internal Medicine
DX: D69.6 Thrombocytopenia, unspecified (principal)
CPT/HCPCS: 36415; 85610; 85730; 86038; 86039

== ENCOUNTER 2024-10-19 12:38 | Outpatient (REF) | payer OTHER, SELFPAY ==
--- OUTSIDE RECORDS SUMMARY | 2024-10-19 14:08 | XMS_ITS | Continuity of Care Document ---
Author Organization [facility] Address [address] [place] [address] Phone [phone] Care Team Providers Care Mechanical Engineering Specialist Name Role Phone Berto Belle M.D. Care Team Information Receiv er [phone] Problems Active Problems Provider Date Non-toxic multinodular goiter Benja Braun M.D. 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 Onset: 02/26/2023 Social History Type Date Description Comments Sex Female Sex Unknown ETOH Use Never used alcohol Tobacco Use Start: Unknown Patient has never smoked Allergies and adverse reactions Description No Known Drug Allergies Medications Active Medications SIG Qnty Indications Ordering Provider Date Idveoxwt35mn Tablets 1 tabs by mouth twice a day 90tabs Berto Belle M.D. Qjalwoytro33lk Tablets 1 tab by mouth every day 90tabs Berto Belle M.D. Ddddnydkklk22nc Tablets 1 tab by mouth every day 90tabs Berto Belle M.D. Trazodone XGD182vw Tablets 1 tab by mouth at bedtime Razia Warren MD Vital Signs Date Vital Result Comment 02/27/2024 1:04pm BP Systolic 160 mmHg BP Diastolic 80 mmHg Heart Rate 72 /min Height 63 inches 5'3 Weight 145.38 lb BMI (Body Mass Index) 25.7 kg/m2 Results Test Acquired Date Facility Test Result H/L Range N ote TSH 02/27/2024 [facility] TSH 0.701 uIU/mL 0.450-4.5 00 Thyroxine (T4) Free, Direct 02/27/2024 [facility] Thyroxine (T4) Free, Direct 1.32 ng/dL 0.82-1.77 TSH Thyroid Stimulating Horm 02/26/2023 [facility] TSH Thyroid Stimulating Horm <pending> T3 Free 02/26/2023 [facility] T3 Free <pending> T4 Free Thyroxine Mass/Vol 02/26/2023 [facility] T4 Free Thyroxine Mass/Vol <pending> Free T3 02/26/2023 [facility] Free T3 3.8 pg/mL (2.3-5.0) Free T4 02/26/2023 [facility] Free T4 1.36 ng/dL (0.70-1.8 0) TSH 02/26/2023 [facility] TSH 1.01 uIU/mL (0.4-4.2) TSH W/Reflex To Free T4 02/26/2022 [facility] TSH W/Reflex To Free T4 <pending> TSH With Reflex To FT4 02/26/2022 [facility] TSH With Reflex To FT4 0.77 uIU/mL (0.4-4.2) Medical Devices Description No Information Available Encounters Type Date Location Provider Dx Diagnosis Office Visit 02/27/2024 1:00p Main Office Benja Braun M.D. E05.90 Thyrotoxicosis, unsp without thyrotoxic crisis or storm Assessments Date Code Description Provider 02/27/2024 E05.90 Subclinical hyperthyroidism Benja Braun M.D. Plan of Treatment Future Appointment(s):* 03/16/2025 1:00 pm - Benja Braun M.D. at Main Office 02/27/2024 - Benja Braun M.D.* E05.90 Subclinical hyperthyroidism Functional Status Description No Information Available Mental Status Description No Information Available Referrals Description No Information Available
== END 2024-10-19 12:39 | disposition home or self-care (01) ==
LOC: HO.LNP 12:38
PROVIDERS: PCP Internal Medicine; Visit Provider Surgery
DX: L81.9 Disorder of pigmentation, unspecified (principal); Z79.82 Long term (current) use of aspirin; Z79.899 Other long term (current) drug therapy
CPT/HCPCS: 11602; 88304; 88305

== ENCOUNTER 2024-10-19 12:38 | Outpatient (AMB) | payer OTHER, SELFPAY ==
--- NOTE | 2024-10-19 12:42 | A.OFFVIS_ITS ---
Vital Signs 3 10/19/24 12:49 Height 5 ft 3 in Weight 139 lb BMI 24.6 BP 184/88 H Blood Pressure Location Lt brachial Position Sitting Pulse 72 Intake Visit Reasons: concern for BCC chest Intake Note: Patient is seen in office for evaluation of a skin lesion of the chest, concern for BCC. Present for 1yr. Pt c/o: enlarging. Denies bleeding. Reports no hx of skin CA. Home Therapy Clinician Required: No Accompanied by: Self / Same As Patient Allergies No Known Allergies (No Known Allergies*) Allergy (Verified 10/19/24 12:48) Medication List - Last Reconciled 10/19/24 by Raul Burleson MD aspirin 81 mg PO DAILY atenolol 50 mg PO BID lisinopril 20 mg PO DAILY omeprazole 20 mg PO DAILY simvastatin 40 mg PO BEDTIME temazepam 15 mg PO BEDTIME PRN HPI Comments Details: 89-year-old female patient presenting with complaints of a skin lesion located in her mid chest which has been present for least 1 year in his gradually increased in size. She has noted 1 episode of bleeding from lesion but generally denies any bleeding or discharge. She denies any pain at the site. She denies a previous history of any skin cancers. She presents today for possible excision of this lesion. FORMERLY [facility], [facility] Medical History Acute adjustment disorder with anxiety Primary insomnia Chest pain Hx of thyroid cyst Elevated cholesterol HTN (hypertension) Surgical History Hx of colonoscopy Hx of excision of mass Hx of cataract extraction Family History Brother Eye cancer Brother Abscess of pharynx or nasopharynx Mother No problems noted. Father No problems noted. Social History Household Members: None Housing: House Do you presently have visiting nurse or other home services: No Alcohol intake: never Patient Tobacco Use Status: Never used Tobacco e-Cigarette/Vaping Use: Never Used service: No Current occupational status: retired Cognitive needs: No Hearing needs: No Vision needs: Yes (rx glasses) Review of Systems Const All systems reviewed & are unremarkable except as noted in HPI and below Physical Exam Vital Signs: Last Vital Signs Pulse 72 10/19/24 12:49 BP 184/88 H 10/19/24 12:49 BMI result Body Mass Index 24.6 Const General: no acute distress Nutritional Appearance: well nourished Orientation/consciousness: patient oriented x3 Limitations: no limitations Chest Chest/axillae images: 2 1. 6 mm round raised non ulcerated flesh to slightly red colored lesion which is slightly scaly on the surface, non pigmented, suggestive of a possible squamous cell or basal cell skin carcinoma. Resp Effort & Inspection: normal respiratory effort, no audible wheezes, no cough and no respiratory distress GI Inspection: Yes normal to inspection Skin Other: As noted in chest above Neuro General: patient oriented x3 Extrem General: Yes normal to inspection Office Procedures Excision Details: Preoperative diagnosis: Skin lesion mid chest Postoperative diagnosis: Same Procedure: Excision of skin lesion mid chest Surgeon: Raul Burleson MD Distance Learning Program Coordinator: None Anesthesia: Local 1% lidocaine with epinephrine Indications for procedure: Enlarging skin lesion mid chest possible skin malignancy Operative findings: Same Specimen: Skin lesion mid chest Estimated blood loss: 2 mL Complications: None Procedure details: Patient was brought to the procedure room and placed in a supine position. After assuring informed consent and confirming the site of surgery in the mid chest, the skin was prepped with Betadine and draped in a sterile fashion. Local anesthesia was then infiltrated circumferentially around the lesion. An elliptical incision oriented transversely was then created with a 15 blade. This was carried down into the subcutaneous tissue and around the skin lesion. The lesion was excised and sent to pathology for further examination. Hemostasis was assured using light pressure. Skin was then closed using interrupted 4-0 nylon sutures. Sterile dressings consisting of a 2 x 2 gauze and Tegaderm were then applied. The patient tolerated the procedure well. She will return in 1 week for suture removal. 20154-gtwun/arms/legs 0.6-1cm Procedure code (CPT) selection complete Assessment & Plan Assessment & Plan (1) Pigmented skin lesion of uncertain behavior of torso: Code(s): L81.9 - Disorder of pigmentation, unspecified Category: Medical Plan 89-year-old female patient presenting with a skin lesion located in the mid chest as noted above which has increased in size over the past year in his suspicious for a basal cell or possible squamous cell skin cancer. I recommended excision of this lesion to assure complete removal and after discussion of the procedure, risks, and alternatives, she consents to the procedure. This was performed under local anesthesia in the office today. This was sent to pathology for further examination. She will return in approximately 1 week for suture removal. Coding Level of Care Code New Pt Level 4 (70287) Diagnoses Pigmented skin lesion of uncertain behavior of torso L81.9 CPT Codes Trunk/Arms/Legs - CPT: 41521-rhwtb/arms/legs 0.6-1cm ([id number])
[2024-10-19 12:49] VITALS: BP 184/88; PULSE 72; BMI 24.6
--- OUTSIDE RECORDS SUMMARY | 2024-10-19 13:20 | XMS_ITS | Clinical Summary ---
Author Organization [employer] Address [address] [place] [address] Care Team Providers Care Comb Winder Name Role Phone Unavailable Primary Care Provider [...] - 1-dose 75+ series) 2012 COVID-19 Vaccine ( - 2023-2 5 season) 2023 Influenza Vaccine (#1) 2024 11/26/2023 HIB Vaccines Aged Out No longer [...] patient's age to complete this topic Insurance [facility] [employer] Member Subscriber Plan / Payer ( fective 2023-Present) Name:Ruthie Tolbert Relation to Subscriber:Self Name:Ruthie Tolbert Payer ID:Not on file Group ID:Not on file Type:Not on file Address: [place] [id number] [facility] Plan / Payer ( fective 2023-Present) Name:Ruthie Tolbert Relation to Subscriber:Self Name:Ruthie Tolbert Payer ID:Not on file Group ID:Not on file Type:Not on file Address: [place] [id number]
--- OUTSIDE RECORDS SUMMARY | 2024-10-19 13:20 | XMS_ITS | Clinical Summary ---
Author Organization [facility] Address [address] [place] [id number] Phone Care Team Providers Care Rig Supervisor Name Role Phone Berto Belle MD Primary Care Provider Medications lisinopril (PRINIVIL,ZESTR IL) 20 MG tablet Take 20 mg by mouth daily. 06/27/2022 Active atenolol (TENORMIN) 50 mg tablet Take 50 mg by mouth 2 (two) times a day (once in the morning and once in the afternoon). 06/27/2022 Active atorvastatin (LIPITOR) 80 MG tablet Take 80 mg by mouth daily. 06/27/2022 Active senna (SENNA LAXATIVE) 8.6 mg tablet Take 1 tablet by mouth daily. 06/27/2022 Active BABY ASPIRIN ORAL Take 81 mg by mouth daily. 06/27/2022 Active sertraline (ZOLOFT) 25 MG tablet Take 25 mg by mouth daily. 07/12/2022 Active Social History Tobacco Use Types Packs/Day Years Used Date Smoking Tobacco: Never Assessed Home Health Assessment: Transportation Answer Date Recorded Lack of Transportation (Medical) No 07/29/2022 Lack of Transportation (Non-Medical) No 07/29/2022 Patient Unable or Declines to Respond No 07/29/2022 Education Answer Date Recorded Are you interested in more education? Not on ann e 07/06/2022 Are you concerned about learning? Not on file 07/06/2022 No 07/06/2022 No 07/06/2022 Digital Access Answer Date Recorded No 07/31/2022 No 07/31/2022 No 07/31/2022 Reliable internet access at home? Not on file 07/31/2022 Device with a working camera? Not on file Comments Unknown Sex and Gender Information Value Date Recorded Sex Assigned at Not on file Legal Sex Female 3:35 PM EDT Gender Identity Not on file Sexual Orientation Not on file Last Filed Vital Signs Vital Sign Reading Time Taken Comments Blood Pressure 136/70 07/29/2022 12:38 PM EDT Pulse 60 07/29/2022 12:38 PM EDT Temperature 36.7 C (98.1 F) 07/29/2022 12:38 PM EDT Respiratory Rate 16 07/29/2022 12:38 PM EDT Oxygen Saturation 98% 07/29/2022 12:38 PM EDT Inhaled Oxygen Concentration - - Weight - - Height - - Body Mass Index - - Plan of Treatment Health Maintenance Due Date Last Done Comments CREATININE LEVEL 1937 POTASSIUM LEVEL 1937 DEPRESSION SCREENING 1949 PNEUMOCOCCAL VACCINES (50+ y ears) (1 of 1 - PCV) 08/18/1987 ZOSTER VACCINES (1 of 2) 08/18/1987 OSTEOPOROSIS SCREENING INITI AL (ONE-TIME) 2002 RSV VACCINE (1 - 1-dose 75+ series) 2012 COVID-19 VACCINE (2023-2 5 season) 2023 Adult Td,Tdap Booster 11/13/2031 11/12/2021 HEPATITIS A VACCINES Aged Out No long er eligible based on patient's age to complete this topic HIB VACCINES Aged Out No longer eligi ble based on patient's age to complete this topic MENINGOCOCCAL VACCINES (ACWY) Aged Out No longer eligible based on patient's age to complete this topic MENINGOCOCCAL VACCINES (B) Aged Out N o longer eligible based on patient's age to complete this topic Medical Devices Not on file Insurance [employer] [facility] TOTAL CHOICE INDEMNITY [employer] TOTAL CHOICE INDEMNITY [employer] TOTAL CHOICE INDEMNITY [employer] TOTAL CHOICE INDEMNITY [employer] TOTAL CHOICE INDEMNITY [employer] TOTAL CHOICE INDEMNITY [employer] TOTAL CHOICE INDEMNITY [facility] TOTAL CHOICE INDEMNITY [facility] TOTAL CHOICE INDEMNITY Care Teams Rig Supervisor Relationship Specialty Start Date End Date Berto Belle MD [address] [place] [address] [place] [address] PCP - General Internal Medicine 06/26/22 Additional Source Comments The information contained in this document represents components of the legal health record. It is not the complete legal health record.[facility]
--- OUTSIDE RECORDS SUMMARY | 2024-10-19 13:21 | XMS_ITS | Patient Health Record ---
Author Organization [facility] [place] Address [address] [place] [address] Care Team Providers Care Ceramics Technician Name Role Phone Berto Belle MD Primary Care Provider Isma Xavier Unavailable [phone] Allergies Allergen (clinical drug ingredient) Drug/Non Drug [...] Status Risk Notes Problem Acquired hallux valgus (41433183) Hallux valgus (acquired), left foot (M20.12) Active confirmed Problem Hallux valgus (acquired), right foot (M20.11) Active confirmed Problem Acquired hammer toe of right foot ([id number] 105) Other hammer toe(s) (acquired), right foot (M20.41) Active confirmed Problem Acquired hammer toe of left foot ([id number] 103) Other hammer toe(s) (acquired), left foot (M20.42) Active confirmed Plan Of Treatment No Information Insurance Providers Payer Name Payer Address Payer Phone Subscriber Number Group Number Insured Name Patient Relationship to Insured Coverage Start Date Coverage End Date [employer] ([facility]) [address] [place] [address] [id number] Ruthie Duran Self - patient is the insured 1 Medical (General) History Medical History History ICD Code Anxiety CAD (Cholesterol) High blood pressure trouble sleeping nausea from tooth surgery Surgical History Surgery Date(Month/Year) Tooth extraction 06/2020
--- OUTSIDE RECORDS SUMMARY | 2024-10-19 13:21 | XMS_ITS | Patient Health Record ---
Author Organization [facility] Address [address] [place] [address] Care Team Providers Care Rooming House Inspector Name Role Phone Yoshi (RETIRED) Berto DONALDSON Primary Care Provide r Demarcus [place] Unavailable [phone] Reason For Referral No Information Medications Medication SIG (Take, Route, Fr equency, Duration) Notes Start Date End Date Status Atenolol 50 MG TAKE 1 TABLET BY JUDY TH EVERY DAY Oral for 7 Active Simvastatin 1 tablet in the even ing Orally Once a day Active Lisinopril 5 MG TK 1 T PO QD Oral for 30 Active Aspirin 81 81 MG 1 tablet Orally Once a day Active Immunizations Vaccine Route Administration Date Status Comme nts Influenza Unknown 01/27/2020 Refused Social History Tobacco Use: Social History Observation Description Date Details (start date - stop date) Never Smoker NA - NA Tobacco Use/Smoking Question Answer Notes Patient is a nonsmoker Alcohol Screen Question Answer Notes Did you have a drink containing alcohol in the p ast year? No Points 0 Interpretation Negative Section Notes: Nonsmoker; no sig alcohol Problems Problem Type SNOMED Code ICD Code Onset Dates Problem Status W/U Status Risk Notes Problem Abnormal feces (380775653) Heme + stool (R19.5) Active confirmed Problem Hemorrhage of rectum and anus (515109714) Rectal bleed (K62.5) Active confirmed Plan Of Treatment Future Test Test Name Order Date COLONOSCOPY 01/27/2020 Insurance Providers Payer Name Payer Address Payer Phone Subscriber Number Group Number Insured Name Patient Relationship to Insured Coverage Start Date Coverage End Date [employer] IN[employer]ITY [address] [place] [address] [phone] [id number] JULIANNA OSHEA Self - patient is the insured Medical (General) History Medical History History ICD Code Denies [place],DM,CVA,Lung disease,renal dise ase Hypertension Hyperlipidemia Surgical History Surgery Date(Month/Year) Cyst near the thyroid
== END 2024-10-19 13:16 | disposition home or self-care (01) ==
LOC: HO.HGS 12:39
PROVIDERS: PCP Internal Medicine; Visit Provider Surgery
DX: C44.519 Basal cell carcinoma of skin of other part of trunk (principal)
CPT/HCPCS: 11602; 99204

== ENCOUNTER 2024-10-26 13:06 | Outpatient (AMB) | payer OTHER, SELFPAY ==
--- NOTE | 2024-10-26 13:13 | A.OFFVIS_ITS ---
Vital Signs 3 10/26/24 13:23 Height 5 ft 3 in Weight 137 lb BMI 24.3 BP 180/92 H Blood Pressure Location Lt brachial Position Sitting Pulse 72 Intake Visit Reasons: 1wk exc Mid chest~ BCC Intake Note: Patient is seen in office for follow up visit, post exc mid chest lesion. Pt c/o: bruising above and under incision. Bandage removed. Incision site healing. No oozing, bleeding noted. 3 sutures to be removed. WLE: 10-19-2024 [employer] Ebs Developer Required: No Accompanied by: Self / Same As Patient Allergies No Known Allergies (No Known Allergies*) Allergy (Verified 10/26/24 13:13) HPI HPI 1wk exc Mid chest~ BCC: Details: patient doing well, denies pain at the excision site, there has been no blood or discharge from the site. Denies fevers or chills. She just wants to know the results and have the sutures removed PFSH Medical History Acute adjustment disorder with anxiety Primary insomnia Chest pain Hx of thyroid cyst Elevated cholesterol HTN (hypertension) Surgical History Hx of colonoscopy Hx of excision of mass Hx of cataract extraction Family History Brother Eye cancer Brother Abscess of pharynx or nasopharynx Mother No problems noted. Father No problems noted. Social History Household Members: None Housing: House Do you presently have visiting nurse or other home services: No Alcohol intake: never Patient Tobacco Use Status: Never used Tobacco e-Cigarette/Vaping Use: Never Used service: No Current occupational status: retired Cognitive needs: No Hearing needs: No Vision needs: Yes (rx glasses) Review of Systems Const All systems reviewed & are unremarkable except as noted in HPI and below Physical Exam Vital Signs: Last Vital Signs Pulse 72 10/26/24 13:23 BP 180/92 H 10/26/24 13:23 BMI result Body Mass Index 24.3 Const General: comfortable and no acute distress Orientation/consciousness: patient oriented x3 Chest Other: 2 cm excision site, [address] healing well. No discharge or bleeding. mildly tender when removing sutures Chest/axillae images: 2 1. Neuro General: patient oriented x3 Assessment & Plan Assessment & Plan (1) H/O basal cell carcinoma excision: Code(s): Z98.890 - Other specified postprocedural states; Z85.828 - Personal history of other malignant neoplasm of skin Category: Medical Plan 89 year old female returning to the office for follow up s/p excision of a basal cell carcinoma of the chest. overall she is doign well, has not had any issues with the excision site. There has been no bleeding or pain. Surgical pathology as follows, basal cell carnimoa, nodular type, negative margins. We discussed these results and I provided her with a copy for her own records. She was relieved to know that the entirity was removed. On exam the excision site appears to be healing well, there is no concern for infection at this time. I removed three sutures, she tolerated this well. I placed a bandaid for any oozing after removal of the sutures. She is no longer requiring follow up and can follow up as needed. Coding Level of Care Code Est Pt Level 3 (69585) Diagnoses H/O basal cell carcinoma excision Z98.890; Z85.828
[2024-10-26 13:23] VITALS: BP 180/92; PULSE 72; BMI 24.3
--- OUTSIDE RECORDS SUMMARY | 2024-10-26 14:16 | XMS_ITS | Patient Health Record ---
Author Organization [facility] [place] Address [address] [place] [address] Care Team Providers Care Engine Manager Name Role Phone Berto Belle MD Primary Care Provider Isma Xavier Unavailable [phone] Allergies Allergen (clinical drug ingredient) Drug/Non Drug [...] Status Risk Notes Problem Acquired hallux valgus (68477224) Hallux valgus (acquired), left foot (M20.12) Active confirmed Problem Acquired hallux valgus (67335701) Hallux valgus (acquired), right foot (M20.11) Active confirmed Problem Acquired hammer toe of right foot (2872315424302 105) Other hammer toe(s) (acquired), right foot (M20.41) Active confirmed Problem Acquired hammer toe of left foot (0583786473719 103) Other hammer toe(s) (acquired), left foot (M20.42) Active confirmed Plan Of Treatment No Information Insurance Providers Payer Name Payer Address Payer Phone Subscriber Number Group Number Insured Name Patient Relationship to Insured Coverage Start Date Coverage End Date [facility] [address] [place] [address] [phone] [id number] Ruthie Duran Self - patient is the insured 1 Medical (General) History Medical History History ICD Code Anxiety CAD (Cholesterol) High blood pressure trouble sleeping nausea from tooth surgery Surgical History Surgery Date(Month/Year) Tooth extraction 06/2020
--- OUTSIDE RECORDS SUMMARY | 2024-10-26 14:16 | XMS_ITS | Clinical Summary ---
Author Organization [employer] Address [address] [place] [address] Care Team Providers Care Rn Pain Management Name Role Phone Unavailable Primary Care Provider [...] patient's age to complete this topic Insurance [facility] [employer] Member Subscriber Plan / Payer ( fective 2023-Present) Name:Ruthie Tolbert Relation to Subscriber:Self Name:Ruthie Tolbert Payer ID:Not on file Group ID:Not on file Type:Not on file Address: [place] [id number] [facility] Subscriber Plan / Payer ( fective 2023-Present) Name:Ruthie Tolbert Relation to Subscriber:Self Name:Ruthie Tolbert Payer ID:Not on file Group ID:Not on file Type:Not on file Address: [place] [id number]
--- OUTSIDE RECORDS SUMMARY | 2024-10-26 14:16 | XMS_ITS | Continuity of Care Document ---
Author Organization [facility] Address [address] [place] [address] Phone [phone] Care Team Providers Care Other Wood Processing Machine Operator Name Role Phone Berto Belle M.D. Care Team Information Receiv er [phone] Problems Active Problems Provider Date Non-toxic multinodular [...] Medications SIG Qnty Indications Ordering Provider Date Jgckvyqb02fd Tablets 1 tabs by mouth twice a day 90tabs Berto Belle M.D. Xdzfhvocts29bz Tablets 1 tab by mouth every day 90tabs Berto Belle M.D. Vjxejqeijfu49qx Tablets 1 tab by mouth every day 90tabs Berto Belle M.D. Trazodone FJK201ls Tablets 1 tab by mouth at bedtime Rzaia Warren MD Vital Signs Date Vital Result [...] ng/dL 0.82-1.77 TSH Thyroid Stimulating Horm 02/26/2023 [facility] TSH Thyroid Stimulating Horm <pending> T3 Free 02/26/2023 [facility] T3 Free <pending> T4 Free Thyroxine Mass/Vol 02/26/2023 [facility] T4 Free Thyroxine Mass/Vol <pending> Free T3 02/26/2023 [facility] Free T3 3.8 pg/mL (2.3-5.0) Free T4 02/26/2023 [facility] Free T4 1.36 ng/dL (0.70-1.8 0) TSH 02/26/2023 [facility] TSH 1.01 uIU/mL (0.4-4.2) TSH W/Reflex To Free T4 02/26/2022 [facility] TSH W/Reflex To Free T4 <pending> TSH With Reflex To FT4 02/26/2022 [facility] TSH With Reflex To [...]
--- OUTSIDE RECORDS SUMMARY | 2024-10-26 14:16 | XMS_ITS | Clinical Summary ---
Author Organization [facility] Address [address] [place] [address] Phone Care Team Providers Care Semi Driver Name Role Phone Berto Belle MD Primary [...] topic Medical Devices Not on file Insurance [employer] [facility] TOTAL CHOICE INDEMNITY [employer] TOTAL CHOICE INDEMNITY [employer] TOTAL CHOICE INDEMNITY [employer] TOTAL CHOICE INDEMNITY [employer] TOTAL CHOICE INDEMNITY [employer] TOTAL CHOICE INDEMNITY [employer] TOTAL CHOICE [facility]DEMNITY [facility] TOTAL CHOICE INDEMNITY [facility] TOTAL CHOICE INDEMNITY Care Teams Semi Driver Relationship Specialty Start Date End Date Berto Belle MD [address] [place] [address] [place] [address] PCP - General Internal Medicine 06/26/22 Additional Source Comments The information contained in this document represents components of the legal health record. It is not the complete legal health record.[facility]
--- OUTSIDE RECORDS SUMMARY | 2024-10-26 14:16 | XMS_ITS | Patient Health Record ---
Author Organization [facility] Address [address] [place] [address] Care Team Providers Care Records Management Manager Name Role Phone Yoshi (RETIRED) Berto DONALDSON Primary Care Provide r Demarcus [place] Unavailable [phone] Reason For Referral No Information Medications Medication [...] W/U Status Risk Notes Problem Abnormal feces (009443383) Heme + stool (R19.5) Active confirmed Problem Hemorrhage of rectum and anus (446209796) Rectal bleed (K62.5) Active confirmed Plan Of Treatment Future Test Test Name Order Date COLONOSCOPY 01/27/2020 Insurance Providers Payer Name Payer Address Payer Phone Subscriber Number Group Number Insured Name Patient Relationship to Insured Coverage Start Date Coverage End Date [employer] INDEMNITY [address] [place] [address] [id number] JULIANNA OSHEA Self - patient is the insured Medical (General) History Medical History History ICD Code Denies [place],DM,CVA,Lung disease,renal dise ase Hypertension Hyperlipidemia Surgical History Surgery Date(Month/Year) Cyst near the thyroid
== END 2024-10-26 13:52 | disposition home or self-care (01) ==
LOC: HO.HGS 13:07
PROVIDERS: PCP Internal Medicine
DX: Z98.890 Other specified postprocedural states (principal); Z85.828 Personal history of other malignant neoplasm of skin
CPT/HCPCS: 99024

== ENCOUNTER 2024-11-15 14:59 | Outpatient (AMB) | payer OTHER, SELFPAY ==
--- NOTE | 2024-11-15 15:11 | A.OFFPC_ITS ---
Vital Signs 11/15/24 15:17 11/15/24 15:41 Height 5 ft 3 in Weight 60.328 kg BMI 23.6 BP 170/100 H 172/92 H Pulse 86 Pulse Source Pulse Oximeter Temp 97.2 F Temp Source Temporal Artery Scan Pulse Oximetry (%) 98 Oxygen Delivery Method Room Air Intake Visit Reasons: cough/bp Heat Treating Bluer Required: No Allergies No Known Allergies (No Known Allergies*) Allergy (Verified 11/15/24 15:15) Medication List - Last Reconciled 11/15/24 by REBECA Dunaway amlodipine 10 mg PO DAILY aspirin 81 mg PO DAILY atenolol 50 mg PO BID hydrocortisone 1% (Anti-Itch (hydrocortisone)) 1 appl topical BID PRN lisinopril 30 mg PO DAILY Tobacco use date assessed: 07/30/24 Dental Screening Dental Screen Date: 07/30/24 HPI HPI Comments History of Present Illness Details 88 year old female with a past medical h istory of hypertension, hyperlipidemia, presenting for follow up. Last seen by pcp Nov CV: on lisinopril, simvastatin, atenolol, ASA. BP controlled. Denies chest pain, exertional dyspnea. Reports chronic cough which she is attributing to lisinopril. She is also reporting leg cramping, question this is related to simvastatin. Follow with Dr Braun for history of thyroid nodule She has a raised dome lesion on the chest for the past ~1 year. Removed by general surgery Insomnia-has tried multiple medications in the past. Failed trazodone but unsure of other trials. Recently prescribed temazepam 15 mg nightly which he states is only somewhat helpful. Has also tried melatonin and several other medications which he can not recall. Concerns: 3 raised nodules on her chest and 1 rangel lar nodule on her right forearm. No pruritus or bleeding ROS see HPI PHYSICAL EXAM: GENERAL: Alert and oriented x 3. NAD EYES: EOMI. Anicteric. LUNGS: Clear to auscultation bilaterally. CARDIOVASCULAR: Regular rate and rhythm. No murmur. No JVD. EXTREMITIES: No edema. Non-tender. SKIN: 3 faintly erythematous 8 mm nodules on the right upper chest and similar lesion on the right forearm NEUROLOGIC: No focal neurological deficits. CN II-XII grossly intact PSYCHIATRIC: Cooperative. Appropriate mood and affect [facility] Medical History Acute adjustment disorder with anxiety Primary insomnia Chest pain Hx of thyroid cyst Elevated cholesterol HTN (hypertension) Surgical History Hx of colonoscopy Hx of excision of mass Hx of cataract extraction Family History Brother Eye cancer Brother Abscess of pharynx or nasopharynx Mother No problems noted. Father No problems noted. Social History Household Members: None Housing: House Do you presently have visiting nurse or other home services: No Alcohol intake: never Patient Tobacco Use Status: Never used Tobacco e-Cigarette/Vaping Use: Never Used service: No Current occupational status: retired Cognitive needs: No Hearing needs: No Vision needs: Yes (rx glasses) Questionnaire Thrive Questionnaire Date Thrive assessed: 07/30/24 NILTON-7 AMB Questionnaire NILTON-7 Date NILTON - 7 assessed: 07/30/24 Source: Developed by Drs. Demarcus Peñaloza, Lisa Barraza, Collin Lovelace and colleagues, with an educational jerrell from [employer]. Physical exam (Primary Care) Vital Signs: Last Vital Signs Temp 97.2 F 11/15/24 15:17 Pulse 86 11/15/24 15:17 BP 172/92 H 11/15/24 15:41 Pulse Ox 98 11/15/24 15:17 Oxygen Delivery Method Room Air 11/15/24 15:17 BMI result Body Mass Index 23.6 Tobacco/Smoking Status: Tobacco use Status Tobacco use date assessed 07/30/24 11/15/24 15:11 Patient Tobacco Use Status Never used Tobacco 11/15/24 15:11 e-Cigarette/Vaping Use Never Used 11/15/24 15:11 Thrive Assessment: Date of Thrive Assessment Date Thrive assessed 07/30/24 11/15/24 15:11 Coding Level of Care Code Est Pt Level 4 (22409) Complex EM visit Add On G2211 Diagnoses Primary hypertension I10 Hypertension type: primary hypertension Elevated cholesterol E78.00 Acute adjustment disorder with anxiety F43.22 Leg cramping R25.2 Skin nodule R22.9 Assessment & Plan Assessment & Plan (1) HTN (hypertension): Code(s): I10 - Essential (primary) hypertension Category: Medical Qualifiers: Hypertension type: primary hypertension Qualified Code(s): I10 - Essential (primary) hypertension Plan: Uncontrolled. Adverse effects with lisinopril. Will discontinue. Add amlodipine 10 mg daily. Continue atenolol 50 mg twice daily. Follow-up in the office in 3 weeks (2) Elevated cholesterol: Code(s): E78.00 - Pure hypercholesterolemia, unspecified Category: Medical Plan: Discontinue simvastatin given leg cramping. Will re-evaluate lipid panel (3) Acute adjustment disorder with anxiety: Code(s): F43.22 - Adjustment disorder with anxiety Category: Medical Plan: Reasonably controlled. Continue monitoring (4) Leg cramping: Code(s): R25.2 - Cramp and spasm Category: Medical Plan: Discontinue simvastatin as above. (5) Skin nodule: Code(s): R22.9 - Localized swelling, mass and lump, unspecified Category: Medical Plan: Etiology unclear. Trial hydrocortisone cream. If no improvement, refer to dermatology Medications: New temazepam 30 mg PO BEDTIME PRN 30 caps 0RF sleep amlodipine 10 mg PO DAILY 30 tabs 0RF hydrocortisone 1% (Anti-Itch (hydrocortisone)) 1 appl topical BID PRN 28.4 grams 0RF rash Discontinued temazepam Discontinued Reason: Doctor's Order 15 mg PO BEDTIME PRN 30 caps 1RF sleep simvastatin Discontinued Reason: Doctor's Order 40 mg PO BEDTIME 90 tabs 1RF lisinopril Discontinued Reason: Doctor's Order 30 mg PO DAILY 30 tabs 0RF Patient Instructions: Trial valerian root (OTC) for sleep. Also increasing temazepam to 30mg nightly STOP lisinopril. STOP simvastatin START amlodipine 10mg once nightly (blood pressure) ADD Hydrocortisone cream twice daily as needed for rash *30 day supply sent to [facility]. Can change to 90 days if needed at next appt and send to [facility] [facility] at that time.
[2024-11-15 15:17] VITALS: BP 170/100; PULSE 86; TEMP 36.2; O2SAT 98; BMI 23.6
[2024-11-15 15:41] VITALS: BP 172/92
--- OUTSIDE RECORDS SUMMARY | 2024-11-15 18:16 | XMS_ITS | Clinical Summary ---
Author Organization [employer] Address [address] [place] [address] Care Team Providers Care Glucose And Syrup Weigher Name Role Phone Unavailable Primary Care Provider [...] COVID-19 Vaccine ( - 2023-2 5 season) 2024 Influenza Vaccine (#1) 2024 11/26/2023 HIB Vaccines [...] patient's age to complete this topic Insurance [facility] [employer] Member Subscriber Plan / Payer ( fective 2023-Present) Name:Ruthie Tolbert Relation to Subscriber:Self Name:Ruthie Tolbert Payer ID:Not on file Group ID:Not on file Type:Not on file Address: [place] [id number] [facility] Member Subscriber Plan / Payer ( fective 2023-Present) Name:Ruthie Tolbert Relation to Subscriber:Self Name:Ruthie Tolbert Payer ID:Not on file Group ID:Not on file Type:Not on file Address: [place] [id number]
--- OUTSIDE RECORDS SUMMARY | 2024-11-15 18:16 | XMS_ITS | Clinical Summary ---
Author Organization [facility] Address [address] [place] [address] Phone Care Team Providers Care Nutrition Manager Name Role Phone Berto Belle MD [...] topic Medical Devices Not on file Insurance [employer] [facility] TOTAL CHOICE INDEMNITY [employer] TOTAL CHOICE INDEMNITY [employer] TOTAL CHOICE INDEMNITY [employer] TOTAL CHOICE INDEMNITY [employer] TOTAL CHOICE INDEMNITY [employer] TOTAL CHOICE INDEMNITY [employer] TOTAL CHOICE INDEMNITY [facility] TOTAL CHOICE INDEMNITY [facility] TOTAL CHOICE INDEMNITY Care Teams Nutrition Manager Relationship Specialty Start Date End Date Berto Belle MD [address] [place] [address] [place] [address] PCP - General Internal Medicine 06/26/22 Additional Source Comments The information contained in this document represents components of the legal health record. It is not the complete legal health record.[facility]
--- OUTSIDE RECORDS SUMMARY | 2024-11-15 18:16 | XMS_ITS | Patient Health Record ---
Author Organization [facility] Address [address] [place] [address] Care Team Providers Care Skein Inspector Name Role Phone Yoshi (RETIRED) Berto DONALDSON Primary Care Provide r Demarcus [place] Unavailable [phone] Reason For Referral No Information Medications Medication [...] W/U Status Risk Notes Problem Abnormal feces (380929423) Heme + stool (R19.5) Active confirmed Problem Hemorrhage of rectum and anus (715152864) Rectal bleed (K62.5) Active confirmed Plan Of Treatment Future Test Test Name Order Date COLONOSCOPY 01/27/2020 Insurance Providers Payer Name Payer Address Payer Phone Subscriber Number Group Number Insured Name Patient Relationship to Insured Coverage Start Date Coverage End Date [employer] INDEMNITY [address] [place] [address] [id number] JULIANNA OSHEA Self - patient is the insured Medical (General) History Medical History History ICD Code Denies [place],DM,CVA,Lung disease,renal dise ase Hypertension Hyperlipidemia Surgical History Surgery Date(Month/Year) Cyst near the thyroid
--- OUTSIDE RECORDS SUMMARY | 2024-11-15 18:17 | XMS_ITS | Patient Health Record ---
Author Organization [facility] [place] Address [address] [place] [address] Care Team Providers Care Pipe Processor Name Role Phone Berto Belle MD Primary Care Provider Isma Xavier Unavailable [phone] Allergies Allergen (clinical drug ingredient) Drug/Non Drug [...] Status Risk Notes Problem Acquired hallux valgus (59666593) Hallux valgus (acquired), left foot (M20.12) Active confirmed Problem Acquired hallux valgus (09124785) Hallux valgus (acquired), right foot (M20.11) Active confirmed Problem Acquired hammer toe of right foot ([id number] 105) Other hammer toe(s) (acquired), right foot (M20.41) Active confirmed Problem Acquired hammer toe of left foot ([id number] 103) Other hammer toe(s) (acquired), left foot (M20.42) Active confirmed Plan Of Treatment No Information Insurance Providers Payer Name Payer Address Payer Phone Subscriber Number Group Number Insured Name Patient Relationship to Insured Coverage Start Date Coverage End Date [facility] ([facility]) [address] [place] [address] [id number] Ruthie Duran Self - patient is the insured 1 Medical (General) History Medical History History ICD Code Anxiety CAD (Cholesterol) High blood pressure trouble sleeping nausea from tooth surgery Surgical History Surgery Date(Month/Year) Tooth extraction 06/2020
--- OUTSIDE RECORDS SUMMARY | 2024-11-15 18:17 | XMS_ITS | Continuity of Care Document ---
Author Organization [facility] [address] [place] [address] Phone [phone] Care Team Providers Care Nocturnist Physician Name Role Phone Berto Belle M.D. Care Team Information Receiv er [phone] Problems Active Problems Provider Date Non-toxic multinodular [...] Medications SIG Qnty Indications Ordering Provider Date [id number] Tablets 1 tabs by mouth twice a day 90tabs Berto Belle M.D. Gtxafddtxu75ch Tablets 1 tab by mouth every day 90tabs Berto Belle M.D. Hciuhckoqmw37ei Tablets 1 tab by mouth every day 90tabs Berto Belle M.D. Trazodone CWL415ni Tablets 1 tab by mouth at bedtime [...] ng/dL 0.82-1.77 TSH Thyroid Stimulating Horm 02/26/2023 [facility] TSH Thyroid Stimulating Horm <pending> T3 Free 02/26/2023 [facility] T3 Free <pending> T4 Free Thyroxine Mass/Vol 02/26/2023 [facility] T4 Free Thyroxine Mass/Vol <pending> Free T3 02/26/2023 [facility] Free T3 3.8 pg/mL (2.3-5.0) Free T4 02/26/2023 [facility] Free T4 1.36 ng/dL (0.70-1.8 0) TSH 02/26/2023 [facility] TSH 1.01 uIU/mL (0.4-4.2) TSH W/Reflex To Free T4 02/26/2022 [facility] TSH W/Reflex To Free T4 <pending> TSH With Reflex To FT4 02/26/2022 [facility] TSH With Reflex To [...]
== END 2024-11-15 15:54 | disposition home or self-care (01) ==
LOC: HO.HMCHD 14:59
PROVIDERS: PCP Internal Medicine; Visit Provider Physician Assistant
DX: I10 Essential (primary) hypertension (principal); E78.00 Pure hypercholesterolemia, unspecified; F43.22 Adjustment disorder with anxiety; R25.2 Cramp and spasm; R22.9 Localized swelling, mass and lump, unspecified

== ENCOUNTER 2024-11-16 13:05 | Emergency (ER) | payer OTHER, SELFPAY ==
[2024-11-16] VITALS (9 sets, daily range): BP systolic 140–173; BP diastolic 61–84; PULSE 60–69; RESP 14–21; TEMP 36.4; O2SAT 96–99; BMI 23.0
--- NOTE | ~2024-11-16 | CT_ITS ---
EXAMINATION: CT HEAD WITHOUT CONTRAST (STROKE PROTOCOL) CLINICAL INFORMATION: Left-sided hemiparesis. Aphasia. . Concerning acute stroke. COMPARISON: April 03, 2023. TECHNIQUE: Contiguous axial imaging was performed from the skull base to vertex without intravenous administration of contrast. This CT examination was performed using dose optimization techniques as appropriate, variously including the following: *Automated exposure control *Adjustment of mA and/or kV according to patient size (this includes techniques or standardized protocols for targeted exams where dose is matched to indication/reason for exam; i.e. extremities or head) *Use of iterative reconstruction technique DLP: 617 mGy centimeter. FINDINGS: No acute intracranial hemorrhage. There is a macrocystic encephalomalacia, right middle frontal gyrus/opercular with the deep white matter confluent hypodensity. There is slight hyperdense right MCA which measures 61 Hounsfield units. Bilateral multifocal patchy deep periventricular white matter. Questionable monroe-white matter effacement in the right frontal opercular. No mass effect midline shift hydrocephalus or herniation. Posterior cranial fossa contents demonstrated no acute intracranial hemorrhage or mass effect. Sellar/suprasellar region demonstrated no gross masses. Normal position of the cerebellar tonsils. No air-fluid levels in the paranasal sinuses. Tympanic cavities and mastoid cells are aerated. CT/CT head for STROKE IMPRESSION: Concerning acute nonhemorrhagic stroke/ischemia right MCA distribution with the likely embolus, right M1 M2 segments. This critical result was discussed with Dr. Beckie Chung at 1:27 PM hours on November 16, 2024. It was ascertained that the content and urgency of the report was understood at the time of direct communication. Electronically signed by: Zachary Crawford MD 11/16/2024 01:32 PM EDT
--- NOTE | ~2024-11-16 | CT_ITS ---
EXAMINATION: CTA NECK WITH CONTRAST (STROKE) CTA BRAIN WITH CONTRAST (STROKE) CLINICAL INFORMATION: Left-sided hemiparesis and neglect . Aphasia. Concerning acute stroke. COMPARISON: June 24, 2022. TECHNIQUE: CTA of the head and neck was performed in the axial plane from the mediastinum to the skull vertex using 70 mL Omnipaque 350 intravenous contrast. Additional reformatted multiplanar images including maximum intensity projection MIP images are generated on the CT workstation. This CT examination was performed using dose optimization techniques as appropriate, variously including the following: *Automated exposure control *Adjustment of mA and/or kV according to patient size (this includes techniques or standardized protocols for targeted exams where dose is matched to indication/reason for exam; i.e. extremities or head) *Use of iterative reconstruction technique DLP: 668 mGy centimeter. FINDINGS: The degree of stenosis determined by criteria similar to NASCET. Chest CTA: Calcified plaques in the thoracic aortic wall and its main branches without aneurysm or dissection. Neck CTA: Right CCA: Normal patency. No focal stenosis. No intimal flap. Right ICA: Calcified plaque resulting in 50% stenosis. No intimal flap. Left CCA: Normal patency. No focal stenosis. No intimal flap. Left ICA: Calcified plaques representing 40% stenosis. No intimal flap. V1/V2 segments are patent without focal stenosis or intimal flap. Right vertebral artery is dominant. There is a tortuosity in the origin of the left vertebral artery. Brain CTA: Anterior cerebral circulation: ICAs: Calcified plaques in the cavernous supracavernous segments. No focal stenosis. No abrupt cut off. MCA's: Abrupt cut off at the right M1/M2 segment without IV contrast enhancement of the distal right MCA and opercular branches. Left MCA is patent without focal stenosis or abrupt cut off. ZARI: Normal patency. No focal stenosis. No abrupt cut off. Anterior communicating artery is not identified. Ophthalmic arteries are present without gross irregularity. Right posterior communicating artery is robust. Left posterior communicating artery is small. Posterior cerebral circulation: V3/V4 segments: Normal patency. No focal stenosis. No intimal flap. Basilar artery is patent without focal stenosis or intimal flap. Superior cerebellar arteries are patent. lapper: Hypoplastic/atrophic right P1 segment. No focal stenosis or abrupt cut off. Right posterior inferior cerebellar artery is patent. Left PICA appears to originate from the right PICA. Ancillary findings: 4 cm heterogeneous partially calcified mixed solid and cystic nodule, left thyroid lobe extending into the mediastinum causing extrinsic compression deformity of the trachea. Pulmonary mosaic pattern. Multilevel cervical spondylosis pronounced at C5-6. There is a 12 mm low density lesion measuring 29 Hounsfield units in the right vallecula. Bilateral prominent cervical lymph nodes, nonspecific. There is a 2 x 1 x 3 cm lobulated fluid density in the infrahyoid midline of the thyrohyoid membrane. 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 4 cm heterogeneous mixed solid and cystic partially calcified nodule/mass left thyroid lobe concerning for malignancy. 3 cm thyroglossal duct cyst. 12 mm low density right vallecula. Recommend direct inspection. This critical test result is communicated to: Emergency physician Dr. Beckie Chung at 1:27 PM on November 16, 2024. Electronically signed by: Zachary Crawford MD 11/16/2024 01:42 PM EDT
--- NOTE | 2024-11-16 13:10 | ECG_ITS ---
Test Reason : stroke Blood Pressure : */* mmHG Vent. Rate : 68 BPM Atrial Rate : * BPM P-R Int : * ms QRS Dur : 90 ms QT Int : 444 ms P-R-T Axes : * -19 11 degrees QTcB Int : 472 ms Atrial fibrillation Abnormal ECG When compared with ECG of 24-Jun-2022 12:25, Atrial fibrillation has replaced Sinus rhythm QT has lengthened Referred By: Beckie Chung Electronically Signed By: FAVIOLA CANTU MD
[2024-11-16 13:15] LABS: Prothrombin Time Whole Bld POC 12.8 sec (11.1-13.5); ~PT, ~INR - Anti Coag Clinic 1.1 (0.9-1.1)
[2024-11-16 13:16] LABS: Glucose, Whole Blood 96 mg/dL (60-115)
--- NOTE | 2024-11-16 13:25 | ED_ITS ---
HPI - Neuro Symptoms/Deficit General Chief Complaint: Stroke Stated Complaint: L SIDED FACIAL DROOP FALL IN BATHROOM Source: patient, EMS and old records reviewed Mode of arrival: EMS Limitations: other (speech issue) History of Present Illness ED Provider: LEX HPI Narrative: 89 yo female with PMH of HTN, HLD, on baby aspirin only who was at the [facility] and was fine. She was using the bathroon when she suddenly felt weak and fell off the toilet this happened at 12pm. The staff found her at 1230pm with difficulty speaking and L sided hemiparesis. She denies headache or trauma. On arrival she has dense L sided deficits as well as fixed gaze to the right, she is neglecting her L side, has L sided facial droop. She has difficulty speaking. She denies any recent illness. Called prehospital stroke alert. Onset (ago): hour(s) (12pm today) Last Observed Normal: 12:00 Location: speech and left face History of same: No Severity: severe Quality: weak Relieving factors: none Exacerbating factors: none Context: gradual onset On Anticoagulants: No Associated symptoms: denies other symptoms Treatments Prior to Arrival: none Related Data Previous Rx's ?Medication ?Instructions ?Recorded aspirin 81 mg chewable tablet 81 mg PO DAILY #30 tabs 06/25/22 atenolol 50 mg tablet 50 mg PO BID #180 tabs 09/22 amlodipine 10 mg tablet 10 mg PO DAILY #30 tabs 11/01 hydrocortisone 1 % topical cream 1 appl topical BID MA N rash #28.4 11/15/24 (Anti-Itch (hydrocortisone)) grams temazepam 30 mg capsule 30 mg PO BEDTIME PRN sleep # 30 caps 11/15/24 Allergies Allergy/AdvReac Type Severity Reaction Status Date / Time No Known Allergies (No Known Allergy Verified 11/16/24 13:40 Allergies*) Review of Systems 2 Review of Systems: Constitutional : No Fever, No Chills, No Fatigue ENT/Mouth : No sore throat, No Rhinorrhea Eyes: No Eye Pain, No Swelling, No Redness Cardiovascular : No Chest Pain, No SOB, No Dyspnea on Exertion Respiratory : No Cough, No Sputum Gastrointestinal : No Nausea, No Vomiting, No Diarrhea, No abdominal Pain Genitourinary : No Dysuria, No Urinary Frequency, No Hematuria, Musculoskeletal : No joint pain, No Myalgias, No Joint Swelling Skin : No Skin Lesions, No rash Neuro :pos Weakness, No Numbness, No Dizziness, positive Headache All other systems reviewed and are negative [facility] Past Medical History Attestation statement: The following information was validated with the patient. Source: old records reviewed Medical History Acute adjustment disorder with anxiety Primary insomnia Chest pain Hx of thyroid cyst Elevated cholesterol HTN (hypertension) Surgical History Hx of colonoscopy Hx of excision of mass Hx of cataract extraction Family History Family History Brother Eye cancer Brother Abscess of pharynx or nasopharynx Mother No problems noted. Father No problems noted. Social History Social History Household Members: None Housing: House Do you presently have visiting nurse or other home services: No Alcohol intake: never Patient Tobacco Use Status: Never used Tobacco e-Cigarette/Vaping Use: Never Used service: No Current occupational status: retired Cognitive needs: No Hearing needs: No Vision needs: Yes (rx glasses) Physical Exam 2 Vital Signs: Vital Signs: Last Vital Signs Pulse 64 11/16/24 13:56 Resp 15 11/16/24 13:56 BP 158/66 H 11/16/24 13:56 Pulse Ox 99 11/16/24 13:56 O2 Del Method Room Air 11/16/24 13:56 BMI result Body Mass Index 23.0 Appearance: Alert. Oriented X3. No acute distress. Eyes: Pupils equal, round and reactive to light. ENT: Pharynx normal. Neck: Normal inspection. Neck supple. CVS: Normal heart rate and rhythm. Pulses normal. Respiratory: No respiratory distress. Breath sounds normal. Abdomen: Soft and nontender. Skin: Skin warm and dry. Normal skin color. Normal skin turgor. Extremities: No lower extremity edema. Neuro: Oriented X 3. No motor deficit. No sensory deficit. CN2-12 intact Course Course Course Narrative: 1317 called Neurology neurology at bedside 131 wanted to wait on TNK until they saw patient [address] head but they see a embolic M1 occlusion I am pushing TNK at this time 130pm TNK has been at bedside and pushed in CT scan BP stable, glucose stable, denies issues with bleeding on aspirin only, stable BP x 2, INR normal call to [facility] neuro interventional 131pm send to ICU at [facility] - medical ICU María would like her to be sent to ICU at [facility] 141pm not direct to lab transfer line to call back with ICU provider to discuss case 155pm spoke to ICU fellow again discussed M1/M2 embolus and transfer line is repaging interventionalist to discuss lab vs ICU - called back at 156pm send direct to lab now - EMS is already en route for patient Medications Administered Discontinued Medications Generic Name Dose Route Start Last Admin Trade Name Freq PRN Reason Stop Dose Admin Iohexol 100 ml 11/16/24 13:26 11/16/24 13:26 Iohexol 350 Mg/Ml 100 Ml Infus..Btl IV 11/16/24 13:27 70 ml ONCE ONE Administration Tenecteplase 16 mg 11/16/24 13:16 11/16/24 13:30 Tenecteplase 50 Mg/10 Ml Kit IVPUSH 11/16/24 13:17 16 mg ONCE ONE Administration Medical Decision Making Medical Decision Making MDM Narrative: 89 yo female with PMH of HTN, HLD on baby aspirin only here with abrupt onset forced gaze to right, L hemiparesis, dysphagia, dysarthria at this time will start stroke protocol as well as labs, suspect occlusion vs bleed - no contraindications for TNK other than age - at this time will work up with neurology and neurointervention as needed. Differential Diagnosis Differential Diagnoses: The differential diagnosis associated with the presentation includes stroke, seizure Admission/Observation Consideration of admission/observation: Escalation of care including admission/observation considered transfer for neurointervention Consult Healthcare Provider Management of the patient was discussed with: Qc Manager please see course Lab Data MDM Lab Attestation statement: I reviewed the patient's lab results. 11/16/24 13:52 11/16/24 13:52 Labs: Lab Results 11/16/24 11/16/24 Range/Units 13:11 13:52 WBC 9.1 (4.8-10.8) X10*3/uL RBC 4.04 L (4.20-5.50) X10*6/uL Hgb 12.7 (12.0-16.0) g/dl Hct 38.0 (37.0-47.0) % MCV 94.1 (80.0-98.0) fL MCH 31.4 (27.0-33.0) pg MCHC 33.4 (31.0-35.0) g/dl RDW 13.9 (11.0-16.0) % Plt Count 252 (160-400) X10*3/uL MPV 9.6 (9.4-12.3) fL Immature Gran % (Auto) 0.4 (0.0-0.4) % Neut % (Auto) 70.9 (45-73) % Lymph % (Auto) 17.1 L (20-40) % [place] % (Auto) 8.8 (2-11) % Eos % (Auto) 2.5 (0-4) % Baso % (Auto) 0.3 (0-2) % Lymph # (Auto) 1.6 (1.2-4.9) X10*3/uL [place] # (Auto) 0.8 (0.1-1.2) X10*3/uL Eos # (Auto) 0.2 (0.0-0.4) X10*3/uL Baso # (Auto) 0.0 (0.0-0.2) X10*3/uL Abs Immat Gran (auto) 0.04 H (0.00-0.03) X10*3/uL Absolute Neuts (auto) 6.4 (2.0-8.3) x10*3/uL Absolute Nucleated RBC 0.000 (0.0-0.012) X10*3/uL Nucleated RBC % (auto) 0.0 (0.0-0.2) /100WBC Whole Blood PT 12.8 (11.1-13.5) sec Whole Blood INR 1.1 (0.9-1.1) POC Glucose 96 (60-115) mg/dL Independent Interpretation I performed an independent interpretation of an: EKG, Plain X-Ray and CT Scan Interpretation: Rate: 68 Rhythm: april Coolidge: left Normal QRS complex. ST T wave : inverted t waves III, no FREDRICK qTC: 472 prior studies: new onset afib The study has been interpreted contemporaneously by me. . Radiology Impression Discussion of test interpretation with radiology: I discussed test interpretation with the radiologist and I have reviewed the radiologist's reading. Radiologist Impression: FINDINGS: No acute intracranial hemorrhage. There is a macrocystic encephalomalacia, right middle frontal gyrus/opercular with the deep white matter confluent hypodensity. There is slight hyperdense right MCA which measures 61 Hounsfield units. Bilateral multifocal patchy deep periventricular white matter. Questionable monroe-white matter effacement in the right frontal opercular. No mass effect midline shift hydrocephalus or herniation. Posterior cranial fossa contents demonstrated no acute intracranial hemorrhage or mass effect. Sellar/suprasellar region demonstrated no gross masses. Normal position of the cerebellar tonsils. No air-fluid levels in the paranasal sinuses. Tympanic cavities and mastoid cells are aerated. CT/CT head for STROKE IMPRESSION: Concerning acute nonhemorrhagic stroke/ischemia right MCA distribution with the likely embolus, right M1 M2 segments. Chest CTA: Calcified plaques in the thoracic aortic wall and its main branches without aneurysm or dissection. Neck CTA: Right CCA: Normal patency. No focal stenosis. No intimal flap. Right ICA: Calcified plaque resulting in 50% stenosis. No intimal flap. Left CCA: Normal patency. No focal stenosis. No intimal flap. Left ICA: Calcified plaques representing 40% stenosis. No intimal flap. V1/V2 segments are patent without focal stenosis or intimal flap. Right vertebral artery is dominant. There is a tortuosity in the origin of the left vertebral artery. Brain CTA: Anterior cerebral circulation: ICAs: Calcified plaques in the cavernous supracavernous segments. No focal stenosis. No abrupt cut off. MCA's: Abrupt cut off at the right M1/M2 segment without IV contrast enhancement of the distal right MCA and opercular branches. Left MCA is patent without focal stenosis or abrupt cut off. ZARI: Normal patency. No focal stenosis. No abrupt cut off. Anterior communicating artery is not identified. Ophthalmic arteries are present without gross irregularity. Right posterior communicating artery is robust. Left posterior communicating artery is small. Posterior cerebral circulation: V3/V4 segments: Normal patency. No focal stenosis. No intimal flap. Basilar artery is patent without focal stenosis or intimal flap. Superior cerebellar arteries are patent. line maintainer section: Hypoplastic/atrophic right P1 segment. No focal stenosis or abrupt cut off. Right posterior inferior cerebellar artery is patent. Left PICA appears to originate from the right PICA. Ancillary findings: 4 cm heterogeneous partially calcified mixed solid and cystic nodule, left thyroid lobe extending into the mediastinum causing extrinsic compression deformity of the trachea. Pulmonary mosaic pattern. Multilevel cervical spondylosis pronounced at C5-6. There is a 12 mm low density lesion measuring 29 Hounsfield units in the right vallecula. Bilateral prominent cervical lymph nodes, nonspecific. There is a 2 x 1 x 3 cm lobulated fluid density in the infrahyoid midline of the thyrohyoid membrane. 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 4 cm heterogeneous mixed solid and cystic partially calcified nodule/mass left thyroid lobe concerning for malignancy. 3 cm thyroglossal duct cyst. 12 mm low density right vallecula. Recommend direct inspection. Independent Historian Clinical information obtained from an independent historian. History obtained from or confirmed by: EMS External Record Review External record reviewed: Inpatient record and Outpatient record NIH Stroke Scale Internal: Initial- Upon Arrival Level of Consciousness: Alert Level of Consciousness Questions: Answers one question correctly Level of Consciousness Commands: Performs both tasks correctly Best Gaze: Forced deviation Visual: No visual loss Facial Palsy: Minor paralyis Motor Arm (Right): No drift Motor Arm (Left): No movement Motor Leg (Right): No drift Motor Leg (Left): No movement Limb Ataxia: Absent Sensory: Normal Best Language: Mild to moderate aphasia Dysarthia: Mild to moderate dysarthria Extinction and Inattention: Visual, tactile, auditory, spatial, or personal inattention Score: 15 Critical Care Time Critical Care Time Critical Care Time: Yes Total Critical Care Time: 45 Attestation: Time is exclusive of separately billable procedures. Time includes: direct patient care, patient reassessment, coordination of patient care, interpretation of data (laboratory data, pulse oximetry, CT scans), review of patient's medical records, medical consultation and documentation of patient care. Procedures excluded from critical care time: central intravenous line placement and electrocardiography. I attest to this time spent taking care of the patient Discharge Plan Discharge Clinical Impression: Embolic stroke, New onset a-fib Patient Disposition: Xfer [facility] Hospital Transfer Details: [facility] Prescriptions: No Action atenolol 50 mg tablet 50 mg PO BID Qty: 180 3RF aspirin 81 mg Tablet,Chewable 81 mg PO DAILY Qty: 30 0RF temazepam 30 mg capsule 30 mg PO BEDTIME PRN (Reason: sleep) Qty: 30 0RF amlodipine 10 mg tablet 10 mg PO DAILY Qty: 30 0RF hydrocortisone [Anti-Itch (HC)] 1 % cream 1 appl topical BID PRN (Reason: rash) Qty: 28.4 0RF Print Language: Citizen Of [place]
[2024-11-16] MEDS: iohexoL 350 MG/ML 100 ML INFUS..BTL IV (13:26)
--- NOTE | 2024-11-16 13:43 | PC.NURSE ---
Pt able to follow commands but looks to right for voice and unable to recognize sound on left. Pt forgetful but able to say name and shows complete neglect left side. Unable to move arm and leg left. Pt VS remain stable. Pt not swallowing secretions well and is spitting into kleenex independently. Jane at bedside.
--- NOTE | 2024-11-16 13:53 | PC.NURSE ---
pt showing afib on monitor rate 60s
[2024-11-16 13:55] LABS: MANUAL DIFF FLAG NO
[2024-11-16 13:57] LABS: Hematocrit 38.0 % (37.0-47.0); Hemoglobin 12.7 g/dl (12.0-16.0); Imm Gran Abs Auto 0.04 X10*3/uL (0.00-0.03); Imm Gran Pct Auto 0.4 % (0.0-0.4); Lymphocytes Absolute Auto 1.6 X10*3/uL (1.2-4.9); Mean Corpuscular HGB Conc 33.4 g/dl (31.0-35.0); Mean Corpuscular Hemoglobin 31.4 pg (27.0-33.0); Mean Corpuscular Volume 94.1 fL (80.0-98.0); NRBC Abs Auto 0.000 X10*3/uL (0.0-0.012); NRBC Pct Auto 0.0 /100WBC (0.0-0.2); Platelet Count 252 X10*3/uL (160-400); Red Blood Count 4.04 X10*6/uL (4.20-5.50); White Blood Count 9.1 X10*3/uL (4.8-10.8)
[2024-11-16 14:11] LABS: Hemoglobin A1C 124.5154 umol/L; Total Hemoglobin (HGBA1C) 3313.3425 umol/L
[2024-11-16 14:15] LABS: Alanine Aminotransferase 19 U/L (0-31); Albumin Level 4.2 g/dL (3.5-5.0); Alkaline Phosphatase 74 U/L (39-117); Anion Gap 14 (12-20); Aspartate Amino Transferase 23 U/L (5-31); Blood Urea Nitrogen 31 mg/dL (9-16); Calcium 9.3 mg/dL (8.4-10.2); Carbon Dioxide 23 mmol/L (22-29); Chloride 109 mmol/L (96-108); Cholesterol 121 mg/dL (<200); Creatinine Clr Calc Pharmacy 38.1; Estimated Glomerular Filt Rate > 60; HDL Cholesterol 48 mg/dL (>40); Magnesium 2.0 mg/dL (1.6-2.6); Potassium 3.8 mmol/L (3.3-5.1); Sodium 142 mmol/L (135-145); Total Protein 6.7 g/dL (6.5-8.0); Triglycerides 101 mg/dL (<150)
--- NOTE | 2024-11-16 14:19 | PC.NURSE ---
Report given to Lidia VIDES laborer carpentry dock at [facility]. Pt remains stable on transfer - No change in Neuro assessment. VSS. Pttransferred to EMS care
[2024-11-16 14:21] LABS: Troponin-I High Sensitivity 6.8 ng/L (<3.5-17.0)
--- NOTE | 2024-11-16 14:49 | MHC.STROKE ---
Called to ED for stroke alert. Greeted patient upon arrival with ED provider. Provider assessed patient outside of CT scan. Stroke protocol orders initiated. Pt was coming from [facility] so it was unclear if she was on any thinners. Pt moved to weighted stretcher and then to CT scanner. IV placed by RN as EMS IV was too low for contrast. Blood pressure obtained while obtaining IV access. CT scans completed. Provider presented case to neurology and Dr. Stover to CT scan for patient evaluation. No bleed noted on CTH It was decided with neurology to administer TNK. Medication given as per protocol. Pt with left sided sided deficits. Unable to move left arm or leg. Neglecting left side. Pt is able to follow commands and will lift her right arm and right leg. She holds up the correct number of fingers on right hand when asked. Stroke Education provided to patient. Will remain NPO. Dr. Chung called [facility] for transfer as soon as medication was given. Initially was told that the patient would be going to the ICU despite telling [facility] that the patient had an M1 occlusion Dr. Chung called back to confirm that the patient was not going to go to the agriculture laborer. [facility] then said that the patient could be transferred immediately to the agriculture laborer.
--- OUTSIDE RECORDS SUMMARY | 2024-11-16 17:18 | XMS_ITS | Clinical Summary ---
Author Organization [facility] Address [address] [place] [address] Phone Care Team Providers Care Principal Technical Architect Name Role Phone Berto Belle MD Primary [...] topic Medical Devices Not on file Insurance [employer] [facility] TOTAL CHOICE INDEMNITY [employer] TOTAL CHOICE INDEMNITY [employer] TOTAL CHOICE INDEMNITY [employer] TOTAL CHOICE INDEMNITY [employer] TOTAL CHOICE INDEMNITY [employer] TOTAL CHOICE INDEMNITY [employer] TOTAL [facility]ICE [facility]ITY [facility] TOTAL CHOICE [facility]DEMNITY [facility] TOTAL CHOICE INDEMNITY Care Teams Principal Technical Architect Relationship Specialty Start Date End Date Berto Belle MD [address] [place] [address] [place] [address] PCP - General Internal Medicine 06/26/22 Additional Source Comments The information contained in this document represents components of the legal health record. It is not the complete legal health record.[facility]
--- OUTSIDE RECORDS SUMMARY | 2024-11-16 17:18 | XMS_ITS | Clinical Summary ---
Author Organization [employer] Address [address] [place] [address] Care Team Providers Care Universal Branch Consultant Name Role Phone Unavailable Primary Care Provider [...] patient's age to complete this topic Insurance [facility] [employer] Member Subscriber Plan / Payer ( fective 2023-Present) Name:Ruthie Tolbert Relation to Subscriber:Self Name:Ruthie Tolbert Payer ID:Not on file Group ID:Not on file Type:Not on file Address: [place] [address] [facility] Subscriber Plan / Payer ( fective 2023-Present) Name:Ruthie Tolbert Relation to Subscriber:Self Name:Ruthie Tolbert Payer ID:Not on file Group ID:Not on file Type:Not on file Address: [place] [address]
--- OUTSIDE RECORDS SUMMARY | 2024-11-16 17:18 | XMS_ITS | Patient Health Record ---
Author Organization [facility] Address [address] [place] [address] Care Team Providers Care Foot Press Operator Name Role Phone Yoshi (RETIRED) Berto DONALDSON Primary Care Provide r Demarcus Alston Unavailable [phone] Reason For Referral No Information Medications Medication [...] W/U Status Risk Notes Problem Abnormal feces (935665478) Heme + stool (R19.5) Active confirmed Problem Hemorrhage of rectum and anus (334594511) Rectal bleed (K62.5) Active confirmed Plan Of Treatment Future Test Test Name Order Date COLONOSCOPY 01/27/2020 Insurance Providers Payer Name Payer Address Payer Phone Subscriber Number Group Number Insured Name Patient Relationship to Insured Coverage Start Date Coverage End Date [employer] IN[employer]ITY [address] [place] [address] [id number] JULIANNA OSHEA Self - patient is the insured Medical (General) History Medical History History ICD Code Denies MO,DM,CVA,Lung disease,renal dise ase Hypertension Hyperlipidemia Surgical History Surgery Date(Month/Year) Cyst near the thyroid
--- OUTSIDE RECORDS SUMMARY | 2024-11-16 17:18 | XMS_ITS | Patient Health Record ---
Author [facility] [place] Address [address] [place] [address] Care Team Providers Care Amusement Ride Operator Name Role Phone Berto Belle MD Primary Care Provider Isma Xavier Unavailable [phone] Allergies Allergen (clinical drug ingredient) Drug/Non Drug [...] Status Risk Notes Problem Acquired hallux valgus (40448540) Hallux valgus (acquired), left foot (M20.12) Active confirmed Problem Acquired hallux valgus (31748249) Hallux valgus (acquired), right foot (M20.11) Active confirmed Problem Acquired hammer toe of right foot ([id number] 105) Other hammer toe(s) (acquired), right foot (M20.41) Active confirmed Problem Acquired hammer toe of left foot ([id number] 103) Other hammer toe(s) (acquired), left foot (M20.42) Active confirmed Plan Of Treatment No Information Insurance Providers Payer Name Payer Address Payer Phone Subscriber Number Group Number Insured Name Patient Relationship to Insured Coverage Start Date Coverage End Date [facility] [address] [place] [address] [phone] [id number] Ruthie Duran Self - patient is the insured 1 Medical (General) History Medical History History ICD Code Anxiety CAD (Cholesterol) High blood pressure trouble sleeping nausea from tooth surgery Surgical History Surgery Date(Month/Year) Tooth extraction 06/2020
--- OUTSIDE RECORDS SUMMARY | 2024-11-16 17:18 | XMS_ITS | Continuity of Care Document ---
Author Organization [facility] [address] [place] [address] Phone [phone] Care Team Providers Care Boiler Operator Name Role Phone Berto Belle M.D. Care Team Information Receiv er [phone] Problems Active Problems Provider Date Non-toxic multinodular [...] Medications SIG Qnty Indications Ordering Provider Date [id number] Tablets 1 tabs by mouth twice a day 90tabs Berto Belle M.D. [id number] Tablets 1 tab by mouth every day 90tabs Berto Belle M.D. [id number] Tablets 1 tab by mouth every day 90tabs Berto Belle M.D. Trazodone [id number] Tablets 1 tab by mouth at bedtime [...] ng/dL 0.82-1.77 TSH Thyroid Stimulating Horm 02/26/2023 [facility] TSH Thyroid Stimulating Horm <pending> T3 Free 02/26/2023 [facility] T3 Free <pending> T4 Free Thyroxine Mass/Vol 02/26/2023 [facility] T4 Free Thyroxine Mass/Vol <pending> Free T3 02/26/2023 [facility] Free T3 3.8 pg/mL (2.3-5.0) Free T4 02/26/2023 [facility] Free T4 1.36 ng/dL (0.70-1.8 0) TSH 02/26/2023 [facility] TSH 1.01 uIU/mL (0.4-4.2) TSH W/Reflex To Free T4 02/26/2022 [facility] TSH W/Reflex To Free T4 <pending> TSH With Reflex To FT4 02/26/2022 [facility] TSH With Reflex To [...]
== END 2024-11-16 14:49 | disposition short-term general hospital (02) ==
LOC: HO.ED 14:51
PROVIDERS: Emergency Provider Emergency Medicine
DX: I63.411 Cerebral infarction due to embolism of right middle cerebral artery (principal); I10 Essential (primary) hypertension; R29.715 NIHSS score 15; R47.01 Aphasia; G81.94 Hemiplegia, unspecified affecting left nondominant side; I48.91 Unspecified atrial fibrillation; R13.10 Dysphagia, unspecified; R47.1 Dysarthria and anarthria
CPT/HCPCS: 36415; 70450; 70496; 70498; 80048; 80061; 80076; 82947; 83036; 83735; 84484; 85025; 85610; 93005; 96374; 99285; 99291; J3101; Q9967

== ENCOUNTER → 2024-11-16 13:10 | Outpatient (BNV) | payer OTHER, SELFPAY | PROVIDERS: Emergency Provider Emergency Medicine; Visit Provider Radiology Diagnostic Radiology | DX: R47.01 Aphasia (principal); G81.90 Hemiplegia, unspecified affecting unspecified side; I63.411 Cerebral infarction due to embolism of right middle cerebral artery; M50.80 Other cervical disc disorders, unspecified cervical region | CPT/HCPCS: 70450; 70496; 70498 ==

== ENCOUNTER → 2024-11-16 13:10 | Outpatient (BNV) | payer OTHER, SELFPAY | PROVIDERS: Emergency Provider Emergency Medicine; Visit Provider Internal Medicine Cardiovascular Disease | DX: I48.91 Unspecified atrial fibrillation (principal) | CPT/HCPCS: 93010 ==

== ENCOUNTER 2025-01-19 16:05 | Outpatient (AMB) | payer OTHER, SELFPAY ==
--- OUTSIDE RECORDS SUMMARY | 2025-01-14 09:00 | XMS_ITS | Encounter Summary ---
Author Organization [facility] Address [address] [place] [phone] Phone Care Team Providers Care Rouge Mixer Name Role Phone Amber Coronado Primary Care Provider [phone] Reason for Visit * Auth/Cert (Routine) Specialty Diagnoses / Procedures Referred By Oscar t Referred To Contact Referral ID Status Reason Start Date Expiration Date Visits Re quested Visits Authorized [id number] 1 1 Encounter Details Date Type Department Care Team (Late st Contact Info) Description 01/14/2025 9:00 AM EST Home Care Visit [facility] [address] [place] [address] Irena Lai, OT [address] [place] [address] [email or web address] OT HOME VISIT Social History Tobacco Use Types Packs/Day Years Used Date Smoking Tobacco: Never Assessed Home Health Assessment: Transportation Answer Date Recorded Lack of Transportation (Medical) Yes 12/08/2024 Lack of Transportation (Non-Medical) Yes 12/08/2024 Patient Unable or Declines to Respond No 12/08/2024 Education Answer Date Recorded Are you interested [...] on file Sexual Orientation Not on file documented as of this encounter Last Filed Vital Signs Vital Sign Reading Time Taken Comments Blood Pressure 110/62 01/14/2025 9:05 AM EST Pulse 64 01/14/2025 9:05 AM EST Temperature 36.7 C (98 F) 01/14/2025 9:05 AM EST Respiratory Rate 16 01/14/2025 9:05 AM EST Oxygen Saturation 96% 01/14/2025 9:05 AM EST Inhaled Oxygen Concentration - - Weight - - Height - - Body Mass Index - - documented in this encounter Plan of Treatment Upcoming Encounters Date Type Department Care Team (Late st Contact Info) Description 01/21/2025 9:00 AM EST Appointment [facility] [address] [place] [phone] Irena Lai, OT [address] [place] [address] 01/21/2025 10:30 AM EST Appointment [facility] [address] [place] [address] Esther Magallon, PT [address] [place] [address] 01/24/2025 9:00 AM EST Appointment [facility] [address] [place] [address] Irena Lai, OT [address] [place] [address] 01/25/2025 10:30 AM EST Appointment [facility] [address] [place] [address] Esther Magallon, PT [address] [place] [address] 01/26/2025 9:00 AM EST Appointment [facility] [address], [place] [phone] Irena Lai, OT [address] [place] [address] 01/27/2025 10:30 AM EST Appointment [facility] [address] [place] [phone] Esther Magallon, PT [address] [place] [address] 01/31/2025 10:30 AM EST Appointment [facility] [address], [place] [phone] Esther Magallon, PT [address] [place] [address] documented as of this encounter Visit Diagnoses Not on filedocumented in this encounter Home Health Visit - Care Plan Visit Details Visit Type -OT HOME VISIT Discipline -Occupational Therapy Problems Problem Description Start Date Status Goals Interve ntions HH - ADL/IADL Impairment and Therapeutic Interventions Disciplines: Occupational Therapy 12/10/2024 Active 1 goal linked to scheduled/document ed intervention 2 goal interventions scheduled/document ed in this visit HH - Medication Management Disciplines: All Active Home Health Disciplines 12/08/2024 Active 1 goal linked to scheduled/document ed intervention 2 goal interventions scheduled/document ed in this visit HH - Focus of Care and Teaching Disciplines: All Active Home Health Disciplines w/RD 12/08/2024 Active 1 goal linked to scheduled/document ed intervention 1 goal intervention scheduled/document ed in this visit HH - Emergency Planning - Knowledge of Disciplines: All Active Home Health Disciplines 12/08/2024 Active 1 goal linked to scheduled/document ed intervention 2 goal interventions scheduled/document ed in this visit HH - Infection - Actual or Risk of Disciplines: All Active Home Health Disciplines 12/08/2024 Active 1 goal linked to scheduled/document ed intervention 1 goal intervention scheduled/document ed in this visit HH - Standard of Care Disciplines: All Active Home Health Disciplines 12/08/2024 Active 1 goal linked to scheduled/document ed intervention 3 goal interventions scheduled/document ed in this visit HH - Falls - Risk of Disciplines: All Active Home Health Disciplines 12/08/2024 Active 1 goal linked to scheduled/document ed intervention 1 goal intervention scheduled/document ed in this visit HH - Pain Disciplines: All Active Home Health Disciplines 12/08/2024 Active 1 goal linked to scheduled/document ed intervention 1 goal intervention scheduled/document ed in this visit Goals Goal Associated Problem Outcome Goal Met? Visit Notes HH - Promote higher level of independence with performance of ADLs/IADLs. Description: Pt will be Mod I with shower xfer using DME/AT/LRAD as needed by 02/05/25. Pt will be Mod I with showering using DME/AT/AE as needed by 02/05/25. Pt will be ind with HEP focus on strengthening, endurance training by 02/05/25. Pt will be Mod I with LB dressing using AE/AT/LRAD as needed by 02/05/25. Pt will be Mod I with light meal prep using LRAD/AT as needed by 02/05/25. HH - ADL/IADL Impairment and Therapeutic Interventions Progressing No HH - Safe medication management, avoid unnecessary harm related to medication errors and/or interactions HH - Medication Management No HH - Communication and collaboration to achieve patient goals HH - Focus of Care and Teaching No HH - Knowledge of options for managing care in the event of an emergency related situation. HH - Emergency Planning - Knowledge of No HH - Patient will have no new infection; any new infection that occurs will be identified and treated promptly; existing infection will resolve without complication Description: Patient and caregiver(s) will demonstrate understanding of infection prevention, monitoring, and treatment as appropriate HH - Infection - Actual or Risk of No HH - Achieve care management for a safe to home/community discharge from homecare HH - Standard of Care No HH - Knowledge and management of fall prevention measures. HH - Falls - Risk of No HH - Frequency of pain interfering with patient's activity or movement will improve with activity or movement by discharge. Description: Pain will be managed over the course of care. Patient's acceptable level of pain is 1 - pain that doesn't interfere. HH - Pain No Interventions Intervention Associated Problem/Goal Status Variance Visit Notes HH - I/E ADL/IADL performance, safety, and management Description: As indicated: ADL/IADL training, functional mobility training, adaptive equipment: recommendations and use, therapeutic exercise and home exercise program, safety, energy conservation/pacing, cognitive training, and visual/perceptual strategies. Problem:HH - ADL/IADL Impairment and Therapeutic Interventions Goal:HH - Promote higher level of independence with performance of ADLs/IADLs. Performed HH - Assess ADL/IADL performance, safety, management, and durable medical equipment Problem:HH - ADL/IADL Impairment and Therapeutic Interventions Goal:HH - Promote higher level of independence with performance of ADLs/IADLs. Performed HH - I/E medication management: administration, purpose, dosages, preparation, setup, scheduling, side effects, food/drug interactions, and potential complications as indicated Description: Update patient's copy of medication list as needed. Problem:HH - Medication Management Goal:HH - Safe medication management, avoid unnecessary harm related to medication errors and/or interactions Performed HH - Complete medication review every visit and medication reconciliation as indicated. Pharmacy information: Problem:HH - Medication Management Goal:HH - Safe medication management, avoid unnecessary harm related to medication errors and/or interactions Performed HH - Focus of care, teaching completed and plan for next visit Problem:HH - Focus of Care and Teaching Goal:HH - Communication and collaboration to achieve patient goals Performed Primary Clinical Focus this Visit & Instruction Provided: Pt agreed to tx session, pt stated drinks prune juice and it is helpful with bowel movement. Aid present. Pt stated wants to take a shower today. aid has bought gait belt for pt. pt and CG ED with proper use of gait belt with stairs. pt instructed with proper tech for climbing stairs BUE support on HR, gait belt, climbing up leading with R leg and climbing down leading with L leg d/t weakness pt needed CG to min A climbing up max vc/tc, and CG ma x vc/tc for climbing downstairs. pt instructed with prep clothes, towel, wash clothes and place it reachable; pt gathered towel and wash cloth using ww at SBA vc/tc. pt instructed with proper tech for shower xfer using ww and shower chair pt needed CG ma x vc/tc. pt and CG instructed with safety with showering, recommended to obtain nonslip bathmat for in and out of shower, install 2 GB in shower, install HH-showerhead, LH-sponge. aid stated will help pt to follow the recommendation. Pt completed shower ing seated shower chair needed help with washing bottom standing level d/t no GB available. pt instructed to dry self seated on shower chair before getting out of shower for safety, aid placed towel as nonslip bathmat. Dressing: seated on chair UB dressi ng Min A help with bra using AT vc/tc 3 AT applied for done bra pt needed min A d/t after showered was tired. Pt needed SBA to done underwear, pants vc/tc seated level hiking aspect standing level. pt with cognitive impaired r/t stroke demo in [place] when attempting task instead of applying tech as instructed. Instruction Provided to: patient Response to Instruction/Teaching: Is partially able to teach back topics as evidenced by vc/tc. Plan for Next Visit Specific Focus & Education Needed: shower New Orders: n/a Updated Discharge Plan: n/a HH - I/E management of care in an urgent or emergency (ER) situation: When to call your Home Care Team/[facility], ER plans, supplies, evacuation, when to contact local ER officials and how to stay informed Problem:HH - Emergency Planning - Knowledge of Goal:HH - Knowledge of options for managing care in the event of an emergency related situation. Performed HH - Emergency planning assessment: the emergency plan, supplies needed, emergency contact numbers and an evacuation plan were reviewed Description: Patient is/are knowledgeable of emergency plans. Problem:HH - Emergency Planning - Knowledge of Goal:HH - Knowledge of options for managing care in the event of an emergency related situation. Performed HH - Assess infection risk and s/s Problem:HH - Infection - Actual or Risk of Goal:HH - Patient will have no new infection; any new infection that occurs will be identified and treated promptly; existing infection will resolve without complication Performed HH - Assess vital signs, pulse oximetry, pain, and as indicated, orthostatic vital signs Description: use agency-specific parameters Problem:HH - Standard of Care Goal:HH - Achieve care management for a safe to home/community discharge from homecare Performed HH - Assess skin integrity Problem:HH - Standard of Care Goal:HH - Achieve care management for a safe to home/community discharge from homecare Performed HH - I/E discharge plan Problem:HH - Standard of Care Goal:HH - Achieve care management for a safe to home/community discharge from homecare Performed HH - Complete fall risk assessment scale Problem:HH - Falls - Risk of Goal:HH - Knowledge and management of fall prevention measures. Performed HH - Assess pain Description: assess each visit Problem:HH - Pain Goal:HH - Frequency of pain interfering with patient's activity or movement will improve with activity or movement by discharge. Performed documented in this encounter Care Teams Rouge Mixer Relationship Specialty Start Date End Date Amber Coronado PA [address] [place] [address] [email or web address] PCP - General Physician Roll Setter 01/13/25 documented as of this encounter Additional Source Comments The information contained in this document represents components of the legal health record. It is not the complete legal health record.[facility]
--- OUTSIDE RECORDS SUMMARY | 2025-01-17 10:30 | XMS_ITS | Encounter Summary ---
Author Organization [facility] Address [address] [facility] [address] [place] [phone] Phone Care Team Providers Care Erp Engineer Name Role Phone Amber Coronado Primary Care Provider [phone] Reason for Visit * Auth/Cert (Routine) Specialty Diagnoses / Procedures Referred By Felipeac t Referred To Contact Referral ID Status Reason Start Date Expiration Date Visits Re quested Visits Authorized [id number] 1 1 Encounter Details Date Type Department Care Team (Late st Contact Info) Description 01/17/2025 10:30 AM EST Home Care Visit [facility] [address] [place] [phone] Esther Magallon, PT [address] [place] [address] [email or web address] PT HOME VISIT Social History Tobacco Use Types [...] Sign Reading Time Taken Comments Blood Pressure 128/80 01/17/2025 10:50 AM EST Pulse 60 01/17/2025 10:50 AM EST Temperature 36.3 C (97.3 F) 01/17/2025 10:50 AM EST Respiratory Rate 18 01/17/2025 10:50 AM EST Oxygen Saturation 97% 01/17/2025 10:50 AM EST Inhaled Oxygen Concentration - - Weight - - Height - - Body Mass Index - - documented in this encounter Plan of Treatment Upcoming Encounters Date Type Department Care Team (Late st Contact Info) Description 01/21/2025 9:00 AM EST Appointment [facility] [address] [place] [phone] Irena Lai, OT [address] [place] [address] [email or web address] 01/[email or web address]/2025 10:30 AM EST Appointment [facility] [address] [place] [address] Esther Magallon, PT [address] [place] [address] [email or web address] 01/24/2025 9:00 AM EST Appointment [facility] [address] [place] [address] Irena Lai, OT [address] [place] [address] [email or web address] 01/25/2025 10:30 AM EST Appointment [facility] [address] [place] [address] Esther Magallon, PT [address] [place] [address] [email or web address] 01/26/2025 9:00 AM EST Appointment [facility] [address], [place] [phone] Irena Lai, OT [address] [place] [address] [email or web address] 01/27/2025 10:30 AM EST Appointment [facility] [address] [place] [phone] Esther Magallon, PT [address] [place] [address] [email or web address] 01/31/2025 10:30 AM EST Appointment [facility] [address] [place], [place] [phone] Esther Magallon, PT [address] [place] [address] [email or web address] documented as of this encounter Visit Diagnoses Not on filedocumented in this encounter Home Health Visit - Care Plan Visit Details Visit Type -PT HOME VISIT Discipline -Physical Therapy Problems Problem Description Start Date Status Goals Interve ntions HH - Medication Management Disciplines: All Active [...] scheduled/document ed in this visit HH - Mobility and Activity Tolerance - Impaired Disciplines: Physical Therapy 12/17/2024 Active 1 goal linked to scheduled/document ed intervention 1 goal intervention scheduled/document ed in this visit Goals Goal Associated Problem Outcome Goal Met? Visit Notes HH - Safe medication management, avoid unnecessary harm related to medication errors and/or interactions HH - Medication Management No HH - Communication and collaboration to achieve patient goals HH - Focus of Care and Teaching No HH - Knowledge of options for managing care in the event of an emergency related situation. HH - Emergency Planning - Knowledge of No HH - Achieve care management for a safe to home/community discharge from homecare HH - Standard of Care No HH - Frequency of pain interfering with patient's activity or movement will improve with activity or movement by discharge. Description: Pain will be managed over the course of care. Patient's acceptable level of pain is 1 - pain that doesn't interfere. HH - Pain No HH - Demonstrate maximum mobility and activity level for safe function Description: PT GOALS: 1. Pt to perform sit to stand to and from all surfaces within home without assistance or VCs to maximize home mobility and safety by 01/15/25. progressing , new goal date by 02/05/25 2. Pt to ambulate throughout home with LAD without ve rbal cues or LOB to maximize safety and independence by 01/15/25. progressing , new goal date by 02/05/25 3. Pt to ambulate outdoors x10 minutes with close S and LAD to allow for return to community mobility by 01/15/25. not assessed, declined and discontinued 4. Pt to perform B LE HEP with >90% accuracy to maximzie strength and stability with all tasks by 01/15/25. progressing , new goal date by 02/05/25 5. Pt to perform up/dwn 13 stairs with LAD and no VCs for safety to allow pt to e nter/exit home and access 2nd floor bedroom without assistance by 01/15/25. progressing , new goal date by 02/05/25 6. Pt to improve Tinetti to >24/28 with LAD to improve balance and safety in home and community environment by 01/15/25. unchanged, ne w goal to 20/28 by 02/05/25 7. Pt to demonstrate improved balance, falls prevention awareness and balance to reduce falls risk and improve safety at home and in community by 01/15/25. progressing , new goal date by 02/05 HH - Mobility and Activity Tolerance - Impaired No Interventions Intervention Associated Problem/Goal Status Variance Visit Notes HH - Complete medication review every visit and medication reconciliation as indicated. Pharmacy information: Problem:HH - Medication Management Goal:HH - Safe medication management, avoid unnecessary harm related to medication errors and/or interactions Performed HH - I/E medication management: administration, purpose, dosages, preparation, setup, scheduling, side effects, food/drug interactions, and potential complications as indicated Description: Update patient's copy of medication list as needed. Problem:HH - Medication Management Goal:HH - Safe medication management, avoid unnecessary harm related to medication errors and/or interactions Scheduled HH - Focus of care, teaching completed and plan for next visit Problem:HH - Focus of Care and Teaching Goal:HH - Communication and collaboration to achieve patient goals Performed Primary Clinical Focus this Visit & Instruction Provided: per pt slipped off edgeof bed over weekend, could not get up, pushed for life alert and was assisted up. No apparent injury. Recommend proper footwear or a non skid mat beside bed as has slippers on without soft sugar supervisor. Pt instructed in exterior stair negotiation in preparation for MD appt this week. Needed assist to manage door and walker. Used 2 hands on 1 rail, max cues to go up with RLE, down with LLE. CGA and max cues. Gt train down sidewalk to str eet with CGA, pt does not steer walker well and walker goes off sidewalk and pt loses her balance. Pt instructed in standing ther ex and standing balance re ed. Impaired balance with eyes closed or single limb support activities. Tends to lean hip on co unter with all activities for balance. TIres easily. Easily distractd, especially by her schedule, now has 3 calendars and a pad of paper with appts and reviews it every time she sits to rest. Needs max cues to redirect to task and for task completion. Instruction Provided to: patient Response to Instruction/Teachin g: Is partially able to teach back topics as evidenced by cues for stair negotiation. Plan for Next Visit Specific Focus & Education Needed: stair negotiation, str, balance, fall preventi on New Orders: n/a Updated Discharge Plan: by 02/05/25 with [facility] HH - I/E management of care in an urgent or emergency (ER) situation: When to call your Home Care Team/911, ER plans, supplies, evacuation, when to contact local ER officials and how to stay informed Problem:HH - Emergency Planning - Knowledge of Goal:HH - Knowledge of options for managing care in the event of an emergency related situation. Scheduled HH - Emergency planning assessment: the emergency plan, supplies needed, emergency contact numbers and an evacuation plan were reviewed Description: Patient is/are knowledgeable of emergency plans. Problem:HH - Emergency Planning - Knowledge of Goal:HH - Knowledge of options for managing care in the event of an emergency related situation. Scheduled HH - Assess vital signs, pulse oximetry, [...] a safe to home/community discharge from homecare Scheduled HH - Assess pain Description: assess each visit Problem:HH - Pain Goal:HH - Frequency of pain interfering with patient's activity or movement will improve with activity or movement by discharge. Performed HH - I/E therapeutic function/activity: Description: As indicated: activity promotion and management, functional mobility training, therapeutic exercise and home exercise program, device use. Problem:HH - Mobility and Activity Tolerance - Impaired Goal:HH - Demonstrate maximum mobility and activity level for safe function Performed documented in this encounter Care Teams Erp Engineer Relationship Specialty Start Date End Date Amber Coronado PA [address] [place] [phone] PCP - General Physician Healthcare Administration Intern 01/13/25 documented as of this encounter Additional Source Comments The information contained in this document represents components of the legal health record. It is not the complete legal health record.[facility]
--- OUTSIDE RECORDS SUMMARY | 2025-01-18 10:00 | XMS_ITS | Encounter Summary ---
Author Organization [facility] Address [address] [facility] [address] [place] [phone] Phone Care Team Providers Care Off Track Betting Manager Name Role Phone Amber Coronado Primary Care Provider [phone] Reason for Visit * Auth/Cert (Routine) Specialty Diagnoses / Procedures Referred By Oscar t Referred To Contact Referral ID Status Reason Start Date Expiration Date Visits Re quested Visits Authorized [id number] 1 1 Encounter Details Date Type Department Care Team (Late st Contact Info) Description 01/18/2025 10:00 AM EST Home Care Visit [facility] [address] [place] [phone] Irena Lai, OT [address] [place] [address] [email or web address] OT HOME VISIT Social History [...] Sign Reading Time Taken Comments Blood Pressure 100/60 01/18/2025 10:18 AM EST Pulse 66 01/18/2025 10:18 AM EST Temperature 36.4 C (97.6 F) 01/18/2025 10:18 AM EST Respiratory Rate 16 01/18/2025 10:18 AM EST Oxygen Saturation 95% 01/18/2025 10:18 AM EST Inhaled Oxygen Concentration - - Weight - - Height - - Body Mass Index - - documented in this encounter Plan of Treatment Upcoming Encounters Date Type Department Care Team (Late st Contact Info) Description 01/21/2025 9:00 AM EST Appointment [facility] [address] [place] [phone] Irena Lai, OT [address] [place] [address] 01/21/2025 10:30 AM EST Appointment [facility] [address] [place] [address] Esther Magallon, PT [address] [place] [address] 01/24/2025 9:00 AM EST Appointment [facility] [address] [place] [address] Irena Lai, OT [address] [place] [address] 01/25/2025 10:30 AM EST Appointment [facility] [address] [place] [address] Esther Magallon, PT [address] [place] [address] 01/26/2025 9:00 AM EST App[facility]ment [facility] [address], [place] [phone] Irena Lai, OT [address] [place] [address] 01/27/2025 10:30 AM EST Appointment [facility] [address], [place] [phone] Esther Magallon, PT [address] [place] [address] 01/31/2025 10:30 AM EST Appointment [facility] [address], [place] [phone] Esther Magallon, PT [address] [place] [address] documented as of this encounter Visit Diagnoses [...] 1 goal linked to scheduled/document ed intervention 4 goal interventions scheduled/document ed in this visit [...] teaching completed and plan for next visit Problem: - Focus of Care and Teaching Goal:HH - Communication and collaboration to achieve patient goals Performed Primary Clinical Focus this Visit & Instruction Provided: Pt reported had a fall on 01/14/25 around 1:30 am she got out of bed to go to bathroom she fell, denied head strike no LOC, she had life alert and pressed it EMT arrived and performed assessment, s he was able to get up off floor and went to bed before EMT arrive, she told EMT that she is fine and EMT left. OT provided pt safety and fall prevention recommended use of BSC for nighttime next to bed for fall prevention pt declined. Pt stated is thinki ng of going back into [facility] and is deciding about it with her brother and S-I-L. OT called and notify MD of fall. pt stated wants to do exercise for arm strengthening: pt completed seated BUE strengthening exercise with 2x1# cans of food shoulders flex, A bd, horz Abd, ER 2x10 rest btw sets vc/vc. pt needed vc/tc STS xfer for proper tech. pt walked to bathroom completed toileting at needed help for balance while tying laces for pants demo LOB posteriorly OT assisted for fall prevention. pt stated has b owel movement daily however not today and drinks prune juice. OT recommended to speak with S-I-L about her situation she agreed. OT spoke with S-IL recommended pt not stay alone at home d/t fall risk she said she will come tomorrow and [facility] is their opti on. Instruction Provided to: patient and caregiver Response to Instruction/Teaching : Is partially able to teach back topics as evidenced by vc/tc. Plan for Next Visit Specific Focus & Education Needed: TFA New Orders: n/a Updated Discharge Plan: n /a HH - I/E management of care in [...] discharge from homecare Performed HH - Assess safety needs of patient (other than falls) Problem:HH - Standard of Care Goal:HH - [...] Performed documented in this encounter Care Teams Off Track Betting Manager Relationship Specialty Start Date End Date Amber Coronado PA [address] [place] [address] [email or web address] PCP - General Physician Manager Books 01/13/25 documented as of this encounter Additional Source Comments The information contained in this document represents components of the legal health record. It is not the complete legal health record.[facility]
--- NOTE | 2025-01-19 16:16 | A.OFFPC_ITS ---
Vital Signs 01/19/25 16:23 BP 118/72 Blood Pressure Location Lt brachial Position Sitting Pulse 67 Pulse Source Pulse Oximeter Temp 97.7 F Temp Source Temporal Artery Scan Pulse Oximetry (%) 99 Oxygen Delivery Method Room Air Intake Visit Reasons: ED f/u Reception Interviewer Required: No Accompanied by: sister in law Allergies No Known Allergies (No Known Allergies*) Allergy (Verified 01/19/25 16:17) Medication List - Last Reconciled 01/19/25 by REBECA Dunaway amlodipine 10 mg PO DAILY apixaban (Eliquis) 2.5 mg PO BID aspirin 81 mg PO DAILY atenolol 12.5 mg (1/2 x 25 mg) PO BID atorvastatin 10 mg PO BEDTIME diclofenac sodium 1% 4 grams topical QID doxazosin 2 mg PO BEDTIME temazepam 30 mg PO BEDTIME PRN Tobacco use date assessed: 01/19/25 Fall risk assessment: No Falls in past year Last assessed Fall Risk: 01/19/25 Dental Screening Dental Screen Date: 01/19/25 Did you have a dental visit in the last 12 months?: Yes Did you have a dental problem in the last 6 months where you did not have access to dental care?: No HPI HPI Comments History of Present Illness Details 88 year old female with a past medical h istory of hypertension, hyperlipidemia, presenting for follow up. Here with daughter in law Kim Hx CVA- initially 2022. Recently hospitalized at [facility] after transfer from [facility] ED due to acute R MCA embolic stroke. R M1 occlusion and ICA stenosis in setting of new onset afib. s/p thrombectomy and stenting by neuroendovascular and TNK administration Simvastatin changed to atorvastatin. On asa. DC'd to STR New onset Afib- started on eliquis for AC. On atenolol. Consider Watchman device given age HTN/HLD: on amlodipine, atorvastatin, atenolol, ASA. BP controlled. Denies chest pain, exertional dyspnea. Hx chronic cough r/t lisinopril. Simvastatin changed to atorvastin due to cramping Follow with Dr Braun for history of thyroid nodule She has a raised dome lesion on the chest for the past ~1 year. Removed by general surgery Insomnia-has tried multiple medications in the past. Failed trazodone but unsure of other trials. Temazepam increased to 30mg with good effect. Cognitive impairment- dc'd from SNF, but not ready to go home so assisted living then home. Per her DIL, she has been perseverating/ obsessing with different things such as money (which should not be a concern). Very anxious Recent fall/balance issues- Mechanical OOB. Uses walker, looking for rolator to rest if needed to prevent falls. Also needs commode. Currently living by herself, family looking into assisted living. Currently has GENERAL MANAGER several times per day and also has pt/ot right now Concerns: 3 raised nodules on her chest and 1 rangel lar nodule on her right forearm. No pruritus or bleeding ROS: see hpi EXAM: Constitutional - Awake and Alert, No apparent distress Eyes - PERRL Cardiovascular - S1S2, RRR, No edema Respiratory - Normal lung expansion, Normal respiratory effort, No respiratory distress, CTA bilaterally Extremities - no calf tenderness bilaterally, no swelling Skin - Warm/Dry. Round 3mm nodule with scaling on R forearm and upper chest. Regular borders, flesh toned Neurological - Alert & oriented x3 Psychological - Appropriate affect PFSH Medical History (Updated 01/22/25 @ 11:19 by REBECA Dunaway) Embolic stroke Behavior related to cognitive impairment Atrial fibrillation CVA (cerebral vascular accident) Acute adjustment disorder with anxiety Primary insomnia Chest pain Hx of thyroid cyst Elevated cholesterol HTN (hypertension) Surgical History Hx of colonoscopy Hx of excision of mass Hx of cataract extraction Family History (Updated 01/19/25 @ 16:33 by Esther Otero MA) Brother Eye cancer Brother Abscess of pharynx or nasopharynx Mother No problems noted. Father No problems noted. Social History Household Members: None Housing: House Do you presently have visiting nurse or other home services: No Alcohol intake: never Patient Tobacco Use Status: Never used Tobacco e-Cigarette/Vaping Use: Never Used service: No Current occupational status: retired Cognitive needs: No Hearing needs: No Vision needs: Yes (rx glasses) Questionnaire PHQ-9 Over the last 2 weeks, how often have you been bothered by any of the following problems? 1. Little interest or pleasure in doing things: not at all 2. Feeling down, depressed, or hopeless: several days 3. Trouble falling or staying asleep, or sleeping too much: not at all 4. Feeling tired or having little energy: nearly every day 5. Poor appetite or overeating: not at all 6. Feeling bad about yourself - or that you are a failure or have let yourself or your family down: not at all 7. Trouble concentrating on things, such as reading the newspaper or watching television: not at all 8. Moving or speaking so slowly that other people could have noticed. Or the opposite - being so fidgety or restless that you have been moving around a lot more than usual: not at all 9. Thoughts that you would be better off or of hurting yourself in some way: not at all Total score: 4 Source: Developed by Drs. Demarcus Peñaloza, Lisa Barraza, Collin Lovelace and colleagues, with an educational jerrell from [employer]. Thrive Questionnaire Date Thrive assessed: 01/19/25 I am a: Patient Within the past 12 months, did the food you bought not last and you didn't have the money to get more?: Never true Within the past 12 months, did you worry whether your food would run out before you got money to buy more?: Never true Do you have trouble paying for medicines?: No Do you have trouble getting transportation to medical appointments?: No Do you have trouble paying your heating and electricity bill?: No Do you have trouble taking care of your child, family member or friend?: No Do you have trouble with day-to-day activities such as bathing, preparing meals, shopping, managing finances, etc.?: No Are you currently unemployed and looking for a job?: No Are you interested in more education?: No THRIVE Score: 0 AUDIT C Alcohol Use Questionnaire (AUDIT-C) 1. How often do you have a drink containing alcohol?: Never 3. How often do you have six or more drinks on one occasion?: Never Total Score: 0 NILTON-7 AMB Questionnaire NILTON-7 Date NILTON - 7 assessed: 01/19/25 Feeling nervous, anxious, or on edge: 0 = Not at all Not being able to stop or control worryin = Not at all Worrying too much about different things: 0 = Not at all Trouble relaxin = Not at all Being so restless that it is hard to sit still: 0 = Not at all Becoming easily annoyed or irritable: 0 = Not at all Feeling afraid as if something awful might happen: 0 = Not at all Total NILTON-7 score (0-4 normal; 5-9 mild; 10-14 moderate; 15-21 severe): 0 Source: Developed by Drs. Demarcus Peñaloza, Lisa Barraza, Collin mejia nd colleagues, with an educational jerrell from [employer]. Physical exam (Primary Care) Vital Signs: Last Vital Signs Temp 97.7 F 01/19/25 16:23 Pulse 67 01/19/25 16:23 BP 118/72 01/19/25 16:23 Pulse Ox 99 01/19/25 16:23 Oxygen Delivery Method Room Air 01/19/25 16:23 Tobacco/Smoking Status: Tobacco use Status Tobacco use date assessed 01/19/25 01/19/25 16:20 Patient Tobacco Use Status Never used Tobacco 01/19/25 16:20 e-Cigarette/Vaping Use Never Used 01/19/25 16:20 PHQ-9: PHQ-9 Score PHQ-9: Total score 4 01/19/25 16:38 Thrive Assessment: Date of Thrive Assessment Date Thrive assessed 01/19/25 01/19/25 16:20 Coding Level of Care Code Est Pt Level 5 (20344) Complex EM visit Add On G2211 Diagnoses Embolic stroke I63.411 Laterality of affected vessel: right Precerebral and cerebral artery: middle cerebral artery Atrial fibrillation I48.91 Primary hypertension I10 Hypertension type: primary hypertension Behavior related to cognitive impairment R41.89 Left knee pain M25.562 Time Spent (min) 50 Assessment & Plan Assessment & Plan (1) Embolic stroke: Comment: R MCA s/p thrombectomy and stenting/ TNK [facility] 12/02 Code(s): I63.9 - Cerebral infarction, unspecified Category: Medical Qualifiers: Laterality of affected vessel: right Precerebral and cerebral artery: middle cerebral artery Qualified Code(s): I63.411 - Cerebral infarction due to embolism of right middle cerebral artery Plan: Continue eliquis, asa, atrovastatin. Continue PT/OT. See below (2) Atrial fibrillation: Code(s): I48.91 - Unspecified atrial fibrillation Category: Medical Plan: Continue eliquis at this time for AC. Did have mechanical fall but DME ordered for fall prevention. Further discussion on watchman device and cardiology referral. Continue atenolol for rate (3) HTN (hypertension): Code(s): I10 - Essential (primary) hypertension Category: Medical Qualifiers: Hypertension type: primary hypertension Qualified Code(s): I10 - Essential (primary) hypertension Plan: Controlled. Continue current therapies (4) Behavior related to cognitive impairment: Code(s): R41.89 - Other symptoms and signs involving cognitive functions and awareness Category: Medical Plan: Following CVA. Initiate sertraline 12.5mg daily. Consider assisted living. Follow up with neurology (5) Left knee pain: Code(s): M25.562 - Pain in left knee Category: Medical Plan: XR ordered. Interested in injection. Referred to ortho Plan Skin lesions most likely BCC and has hx of same. Referred to derm. Marvin and klever ordered Follow up in 4 weeks for anxiety Orders: Orders XR knee LT 3V 01/19/25 M25.562 - Pain in left knee Referrals Orthopedics Referral M25.562 - Pain in left knee Dermatology Referral C44.91 - Basal cell carcinoma of skin, unspecified Medications: New atenolol 12.5 mg (1/2 x 25 mg) PO BID 180 tabs 1RF walker (Ultra-Light Rollator misc) As directed 1 ea 0RF I63.9 - Cerebral infarction, unspecified, M25.562 - Pain in left knee, R26.89 - Other abnormalities of gait and mobility doxazosin 2 mg PO BEDTIME 90 tabs 0RF atorvastatin 10 mg PO BEDTIME 90 tabs 1RF diclofenac sodium 1% apply to single knee, ankle, foot; for foot includes sole/toes/top of foot 4 grams topical QID 100 grams 1RF sertraline 12.5 mg (1/2 x 25 mg) PO DAILY 45 tabs 1RF commode (bedside commode) As directed 1 ea 0RF I63.9 - Cerebral infarction, unspecified, M25.562 - Pain in left knee, R26.89 - Other abnormalities of gait and mobility Refilled temazepam 30 mg PO BEDTIME PRN 30 caps 0RF sleep amlodipine 10 mg PO DAILY 90 tabs 1RF
[2025-01-19 16:23] VITALS: BP 118/72; PULSE 67; TEMP 36.5; O2SAT 99
--- OUTSIDE RECORDS SUMMARY | 2025-01-19 18:56 | XMS_ITS | Patient Health Record ---
Author Organization [facility] Address [address] [place] [address] Care Team Providers Care Leather Shaver Name Role Phone Yoshi (RETIRED) Berto DONALDSON Primary Care Provide r Demarcus Alston Unavailable [phone] Reason For Referral No Information Medications Medication SIG (Take, Route, Fr equency, Duration) Notes Start Date End Date Status Atenolol 50 MG TAKE 1 TABLET BY JUDY TH EVERY DAY Oral; Duration: 7 Active Simvastatin 1 tablet in the even ing Orally Once a day Active Lisinopril 5 MG TK 1 T PO QD Oral; Duration: 30 Active Aspirin 81 81 MG 1 [...] W/U Status Risk Notes Problem Abnormal feces (689807140) Heme + stool (R19.5) Active confirmed Problem Hemorrhage of rectum and anus (478787247) Rectal bleed (K62.5) Active confirmed Plan Of Treatment Future Test Test Name Order Date COLONOSCOPY 01/27/2020 Insurance Providers Payer Name Payer Address Payer Phone Subscriber Number Group Number Insured Name Patient Relationship to Insured Coverage Start Date Coverage End Date [employer] INDEMNITY [address] [place] [address] [id number] SALVADOR CrowJULIANNA Self - patient is the insured Medical (General) History Medical History History ICD Code Denies [place],DM,CVA,Lung disease,renal dise ase Hypertension Hyperlipidemia Surgical History Surgery Date(Month/Year) Cyst near the thyroid
--- OUTSIDE RECORDS SUMMARY | 2025-01-19 18:56 | XMS_ITS | Clinical Summary ---
Author Organization [facility] Address [address] [address] Phone Care Team Providers Care Palletiser Operator Name Role Phone Amber Coronado Primary Care Provider [phone] Medications lisinopril (PRINIVIL,ZESTR IL) 20 MG tablet Take 20 mg by mouth daily. 3 Active atenolol (TENORMIN) 50 mg tablet Take 50 mg by mouth 2 (two) times a day (once in the morning and once in the afternoon). 3 Active atorvastatin (LIPITOR) 80 MG tablet Take 80 mg by mouth daily. 3 Active senna (SENNA LAXATIVE) 8.6 mg tablet Take 1 tablet by mouth daily. 3 Active BABY ASPIRIN ORAL Take 81 mg by mouth daily. 3 Active sertraline (ZOLOFT) 25 MG tablet Take 25 mg by mouth daily. 3 Active amLODIPine (NORVASC) 2.5 MG tablet Take 10 mg by mouth daily. 5 Active apixaban (ELIQUIS) 2.5 mg Take 2.5 mg by mouth 2 (two) times a day. 5 Active doxazosin (CARDURA) 2 MG tablet Take 2 mg by mouth nightly at bedtime. 5 Active hydrocortisone 0.5 % cream Apply 0.5 Applications topically 2 (two) times a day. 5 Active lisinopril (PRINIVIL,ZESTR IL) 10 MG tablet Take 30 mg by mouth daily. Active simvastatin (ZOCOR) 40 MG tablet Take 40 mg by mouth nightly at bedtime. Active temazepam (RESTORIL) 30 mg capsule Take 30 mg by mouth nightly at bedtime as needed for anxiety or sleep. Active docusate sodium (COLACE) 100 MG capsule Take 100 mg by mouth 2 (two) times a day. Take 1 capsule twice daily and hold for loose stool. Active Encounters Date Type Department Care Team Description 01/18/2025 10:00 AM EST Home Care Visit [facility] [address] [place] [phone] Irena Lai, OT OT HOME VISIT 01/17/2025 10:30 AM EST Home Care Visit [facility] [address] [place] [phone] Esther Magallon, PT PT HOME VISIT 01/14/2025 9:00 AM EST Home Care Visit [facility] [address] [place] [phone] Irena Lai, OT OT HOME VISIT 01/12/2025 11:00 AM EST Home Care Visit [facility] [address] [place] [phone] Esther Magallon, PT PT TFA VISIT 01/11/2025 11:30 AM EST Home Care Visit [facility] [address] [place] [phone] Daisy Antoine, MAHOGANY SN DISCIPLINE DISCHARGE VISIT 01/10/2025 1:30 PM EST Home Care Visit [facility] [address] [place] [phone] Irena Lai, OT OT HOME VISIT 01/10/2025 10:30 AM EST Home Care Visit [facility] [address] [place] [phone] Esther Magallon, PT PT HOME VISIT 01/10/2025 Episode Documentatio n Update [facility] [address] [place], [place] [phone] Jonna Ricketts 01/05/2025 1:30 PM EDT Home Care Visit [facility] [address] [place], [place] [phone] Irena Lai, OT OT HOME VISIT 01/05/2025 10:30 AM EDT Home Care Visit [facility] [address] [place], [place] [phone] Esther Magallon, PT PT HOME VISIT 01/03/2025 1:30 PM EDT Home Care Visit [facility] [address] [place] [address] Irena Lai, OT OT HOME VISIT 01/03/2025 10:30 AM EDT Home Care Visit [facility] [address] [place] [address] Esther Magallon, PT PT HOME VISIT 12/30/2024 10:30 AM EDT Home Care Visit [facility] [address] [place] [address] Esther Magallon, PT PT HOME VISIT 12/30/2024 9:00 AM EDT Home Care Visit [facility] [address] [place] [address] Irena Lai, OT OT HOME VISIT 12/29/2024 1:30 PM EDT Home Care Visit [facility] [address] [place] [address] Irena Lai, OT OT TFA VISIT 12/27/2024 1:30 PM EDT Home Care Visit [facility] [address] [place] [address] Irena Lai, OT OT HOME VISIT 12/27/2024 10:30 AM EDT Home Care Visit [facility] [address] [place], [place] [phone] Esther Magallon, PT PT HOME VISIT 12/24/2024 1:45 PM EDT Home Care Visit [facility] [address] [place], [place] [phone] Angélica Burdick LPN SUPERVISOR WET POUR HOME VISIT 12/24/2024 12:00 PM EDT Home Care Visit [facility] [address] [place], [place] [phone] Irena Lai, OT OT HOME VISIT 12/22/2024 10:15 AM EDT Home Care Visit [facility] [address] [place] [address] Valerie Sparrow, RELATIONSHIP COUNSELOR RELATIONSHIP COUNSELOR HOME VISIT 12/21/2024 2:30 PM EDT Home Care Visit [facility] [address] [place], [place] [phone] Irena Lai, OT OT HOME VISIT 12/17/2024 9:15 AM EDT Home Care Visit [facility] [address] [place] [address] Wilma Deleon, PT PT EVALUATION 12/17/2024 Episode Documentatio n Update [facility] [address] [place] [address] Jenna Balbuena 12/16/2024 9:30 AM EDT Home Care Visit [facility] [address] [place], [place] [phone] Telma Greco RN SN HOME VISIT 12/16/2024 Episode Documentatio n Update [facility] [address] [place], [place] [phone] Jenna Balbuena 12/15/2024 Episode Documentatio n Update [facility] [address] [place], [place] [phone] JonJose Carlos knappkaiser Olivo 12/13/2024 10:00 AM EDT Home Care Visit [facility] [address] [place] [address] Yaneth Ndiaye LPN SUPERVISOR WET POUR HOME VISIT 12/10/2024 2:30 PM EDT Home Care Visit [facility] [address] [place] [address] Irena Lai, OT OT EVALUATION 12/10/2024 Home Care Visit [facility] [address] [place] [address] Catalina Herrmann, PT TELEPHONE ENCOUNTER 12/10/2024 Episode Documentatio n Update [facility] [address] [place] [address] 12/10/2024 Plan of Care Documentation [facility] [address] [place] [address] 12/08/2024 7:00 AM EDT Home Care Visit [facility] [address] [place] [address] Mehnaz Zuluaga, MAHOGANY SN OASIS START OF CARE (SOC) 12/03/2024 Orders Only [facility] [address] [place] [address] Homehealth, Interface ProviderMD from Last 3 Months Social History Tobacco Use Types Packs/Day Years [...] Mass Index - - Plan of Treatment Upcoming Encounters Date Type Department Care Team (Late st Contact Info) Description 01/21/2025 9:00 AM EST Appointment [facility] [address] [place] [address] Irena Lai, OT [address] [place] [address] [email or web address] 01/21/2025 10:30 AM EST Appointment [facility] [address] [place] [address] Esther Magallon, PT [address] [place] [address] [email or web address] 01/24/2025 9:00 AM EST Appointment [facility] [address] [place] [address] Irena Lai, OT [address] [place] [address] [email or web address] 01/25/2025 10:30 AM EST Appointment [facility] [address] [place] [address] Esther Magallon, PT [address] [place] [address] 01/26/2025 9:00 AM EST Appointment [facility] [address] [place] [phone] Eli Banks Irena, OT [address] [place] [address] 01/27/2025 10:30 AM EST Appointment [facility] [address] [place] [phone] Esther Magallon, PT [address] [place] [address] 01/31/2025 10:30 AM EST Appointment [facility] [address] [place], [place] [phone] Esther Magallon, PT [address] [place] [address] Health Maintenance Due Date Last Done Comments CREATININE LEVEL 1937 POTASSIUM LEVEL 1937 DEPRESSION SCREENING 1949 PNEUMOCOCCAL VACCINES (50+ y ears) (1 of 1 - PCV) 08/18/1987 ZOSTER VACCINES (1 of 2) 08/18/1987 OSTEOPOROSIS SCREENING INITI AL (ONE-TIME) 2002 RSV VACCINE (1 - 1-dose 75+ series) 2012 INFLUENZA VACCINE (#1) 2024 01/03/2022 COVID-19 VACCINE ( - 2024-2 6 season) 2024 Adult Td,Tdap Booster 11/13/2031 11/12/2021 HEPATITIS A VACCINES Aged Out No long er eligible based on patient's age to complete this topic HIB VACCINES Aged Out No longer eligi ble based on patient's age to complete this topic IPV VACCINES Aged Out No longer eligi ble based on patient's age to complete this topic MENINGOCOCCAL VACCINES (ACWY) Aged Out No longer eligible based on patient's age to complete this topic MENINGOCOCCAL VACCINES (B) Aged Out N o longer eligible based on patient's age to complete this topic Medical Devices Not on file Insurance [employer] TOTAL CHOICE INDEMNITY [employer] TOTAL CHOICE INDEMNITY [employer] TOTAL CHOICE INDEMNITY [facility] TOTAL CHOICE INDEMNITY [facility] TOTAL CHOICE INDEMNITY [facility] TOTAL CHOICE INDEMNITY [employer] TOTAL CHOICE INDEMNITY [employer] TOTAL CHOICE INDEMNITY [facility] TOTAL CHOICE INDEMNITY Care Teams Palletiser Operator Relationship Specialty Start Date End Date Amber Coronado PA [address] [place] [address] [email or web address] PCP - General Physician Sheet Tailer 01/13/25 Additional Source Comments The information contained in this document represents components of the legal health record. It is not the complete legal health record.[facility]
--- OUTSIDE RECORDS SUMMARY | 2025-01-19 18:56 | XMS_ITS | Clinical Summary ---
Author Organization [employer] Address [address] [facility] [address] [place] [address] Care Team Providers Care Schedule Announcer Name Role Phone Unavailable Primary Care Provider [...] patient's age to complete this topic Insurance [facility] [employer] Member Subscriber Plan / Payer ( fective 2023-Present) Name:Ruthie Tolbert Relation to Subscriber:Self Name:Ruthie Tolbert Payer ID:Not on file Group ID:Not on file Type:Not on file Address: [place] [address] [facility] Subscriber Plan / Payer ( fective 2023-Present) Name:Ruthie Tolbert Relation to Subscriber:Self Name:Ruthie Tolbert Payer ID:Not on file Group ID:Not on file Type:Not on file Address: [place] [address]
--- OUTSIDE RECORDS SUMMARY | 2025-01-19 18:56 | XMS_ITS | Patient Health Record ---
[facility] [place] Address [address] [place] [address] Care Team Providers Care Mechanical Detailer Name Role Phone Berto Belle MD Primary Care Provider Isma Diaz Unavailable [phone] Allergies Allergen (clinical drug ingredient) Drug/Non Drug [...] Status Risk Notes Problem Acquired hallux valgus (82134031) Hallux valgus (acquired), left foot (M20.12) Active confirmed Problem Acquired hallux valgus (36579242) Hallux valgus (acquired), right foot (M20.11) Active confirmed Problem Acquired hammer toe of right foot (3076034971605 105) Other hammer toe(s) (acquired), right foot (M20.41) Active confirmed Problem Acquired hammer toe of left foot (5923389548629 103) Other hammer toe(s) (acquired), left foot (M20.42) Active confirmed Plan Of Treatment No Information Insurance Providers Payer Name Payer Address Payer Phone Subscriber Number Group Number Insured Name Patient Relationship to Insured Coverage Start Date Coverage End Date [facility] [address] [place] [address] [id number] Ruthie Duran Self - patient is the insured 1 Medical (General) History Medical History History ICD Code Anxiety CAD (Cholesterol) High blood pressure trouble sleeping nausea from tooth surgery Surgical History Surgery Date(Month/Year) Tooth extraction 06/2020
--- OUTSIDE RECORDS SUMMARY | 2025-01-19 18:57 | XMS_ITS | Continuity of Care Document ---
Author Organization [facility] Address [address] [place] [address] Phone [phone] Care Team Providers Care Care Specialist Name Role Phone Berto Belle M.D. Care Team Information Receiv er [phone] Problems Active Problems Provider Date Non-toxic multinodular [...] Medications SIG Qnty Indications Ordering Provider Date Actvxvye64lq Tablets 1 tabs by mouth twice a day 90tabs Berto Belle M.D. Ypwdxkafrh07pt Tablets 1 tab by mouth every day 90tabs Berto Belle M.D. Lvcrxuixoss69oy Tablets 1 tab by mouth every day 90tabs Berto Belle M.D. Trazodone KOW179nu Tablets 1 tab by mouth at bedtime [...] ng/dL 0.82-1.77 TSH Thyroid Stimulating Horm 02/26/2023 [facility] TSH Thyroid Stimulating Horm <pending> T3 Free 02/26/2023 [facility] T3 Free <pending> T4 Free Thyroxine Mass/Vol 02/26/2023 [facility] T4 Free Thyroxine Mass/Vol <pending> Free T3 02/26/2023 [facility] Free T3 3.8 pg/mL (2.3-5.0) Free T4 02/26/2023 [facility] Free T4 1.36 ng/dL (0.70-1.8 0) TSH 02/26/2023 [facility] TSH 1.01 uIU/mL (0.4-4.2) TSH W/Reflex To Free T4 02/26/2022 [facility] TSH W/Reflex To Free T4 <pending> TSH With Reflex To FT4 02/26/2022 [facility] TSH With Reflex To FT4 [...]
== END 2025-01-19 17:28 | disposition home or self-care (01) ==
LOC: HO.HMCHD 16:05
PROVIDERS: Visit Provider Physician Assistant
DX: I63.411 Cerebral infarction due to embolism of right middle cerebral artery (principal); I48.91 Unspecified atrial fibrillation; I10 Essential (primary) hypertension; R41.89 Other symptoms and signs involving cognitive functions and awareness; M25.562 Pain in left knee

== ENCOUNTER 2025-03-01 08:22 | Outpatient (REF) | payer OTHER, SELFPAY ==
--- NOTE | ~2025-03-01 | XR_ITS ---
EXAMINATION: XR KNEE, LEFT CLINICAL INFORMATION: M25.562 - Pain in left knee COMPARISON: None available. TECHNIQUE: Three views of the left knee. FINDINGS: Severe medial compartment arthritis, marked joint space loss, osteophytes, sclerosis. Genu varus. Marginal spurring in the lateral compartment. Moderate patellofemoral arthritis. No visible acute fracture or dislocation. Overlapping densities in the lateral view limiting evaluation for joint effusion. No large effusion is identified in the provided view. XR/XR knee LT 3V IMPRESSION: Tricompartment osteoarthritis. Severe medial compartment arthritis. No radiographic evidence of acute fracture. Electronically signed by: Avery Reese MD 03/01/2025 04:29 PM EST
--- OUTSIDE RECORDS SUMMARY | 2025-03-02 08:25 | XMS_ITS | Clinical Summary ---
Author Organization [facility] Address [address] [address] Phone Care Team Providers Care After School Driver Name Role Phone Amber Coronado Primary Care Provider [phone] Medications lisinopril (PRINIVIL,ZESTR IL) 20 MG tablet [...] 10:30 AM EST Home Care Visit [facility] [address] [place] [address] Esther Magallon, PT PT OASIS DISCHARGE VISIT 01/31/2025 Episode Documentatio n Update [facility] [address] [place] [address] Jonna Ricketts 01/27/2025 11:00 AM EST Home Care Visit [facility] [address] [place] [address] Esther Magallon, PT PT HOME VISIT 01/26/2025 9:00 AM EST Home Care Visit [facility] [address] [place] [address] Irena Lai, OT OT DISCIPLINE DISCHARGE VISIT 01/26/2025 Episode Documentatio n Update [facility] [address] [place] [address] Jonna Ricketts 01/25/2025 10:30 AM EST Home Care Visit [facility] [address] [place] [address] Esther Magallon, PT PT HOME VISIT 01/24/2025 9:00 AM EST Home Care Visit [facility] [address] [place] [address] Irena Lai, OT OT HOME VISIT 01/21/2025 10:30 AM EST Home Care Visit [facility] [address] [place] [address] Esther Magallon, PT PT HOME VISIT 01/21/2025 9:00 AM EST Home Care Visit [facility] [address] [place] [address] Irena Lai, OT OT HOME VISIT 01/18/2025 10:00 AM EST Home Care Visit [facility] [address] [place] [address] Irena Lai, OT OT HOME VISIT 01/17/2025 10:30 AM EST Home Care Visit [facility] [address] [place] [address] Esther Magallon, PT PT HOME VISIT 01/14/2025 9:00 AM EST Home Care Visit [facility] [address] [place] [address] Irena Lai, OT OT HOME VISIT 01/12/2025 11:00 AM EST Home Care Visit [facility] [address] [place] [address] Esther Magallon, PT PT TFA VISIT 01/11/2025 11:30 AM EST Home Care Visit [facility] [address] [place] [address] Daisy Antoine, MAHOGANY SN DISCIPLINE DISCHARGE VISIT 01/10/2025 1:30 PM EST Home Care Visit [facility] [address] [place], [place] [phone] Irena Lai, OT OT HOME VISIT 01/10/2025 10:30 AM EST Home Care Visit [facility] [address] [place], [place] [phone] Esther Magallon, PT PT HOME VISIT 01/10/2025 Episode Documentatio n Update [facility] [address] [place], [place] [phone] Jonna Ricketts 01/05/2025 1:30 PM EDT Home Care Visit [facility] [address] [place] [address] Irena Lai, OT OT HOME VISIT 01/05/2025 10:30 AM EDT Home Care Visit [facility] [address] [place] [address] Esther Magallon, PT PT HOME VISIT 01/03/2025 1:30 PM EDT Home Care Visit [facility] [address] [place] [address] Irena Lai, OT OT HOME VISIT 01/03/2025 10:30 AM EDT Home Care Visit [facility] [address] [place] [address] Esther Magallon, PT PT HOME VISIT 12/30/2024 10:30 AM EDT Home Care Visit [facility] [address] [place], [place] [phone] Esther Magallon, PT PT HOME VISIT 12/30/2024 9:00 AM EDT Home Care Visit [facility] [address] [place], [place] [phone] Irena Lai, OT OT HOME VISIT 12/29/2024 1:30 PM EDT Home Care Visit [facility] [address] [facility], [place] [phone] Irena Lia, OT OT TFA VISIT 12/27/2024 1:30 PM EDT Home Care Visit [facility] [address] [place] [address] Irena Lai, OT OT HOME VISIT 12/27/2024 10:30 AM EDT Home Care Visit [facility] [address] [place] [address] Esther Magallon, PT PT HOME VISIT 12/24/2024 1:45 PM EDT Home Care Visit [facility] [address] [place] [address] Angélica Burdick LPN SORTING MACHINE ATTENDANT HOME VISIT 12/24/2024 12:00 PM EDT Home Care Visit [facility] [address] [place] [address] Irena Lai, OT OT HOME VISIT 12/22/2024 10:15 AM EDT Home Care Visit [facility] [address] [place] [address] Valerie Sparrow, ELECTRONIC TECHNOLOGIST ELECTRONIC TECHNOLOGIST HOME VISIT 12/21/2024 2:30 PM EDT Home Care Visit [facility] [address] [place] [address] Irena Lai, OT OT HOME VISIT 12/17/2024 9:15 AM EDT Home Care Visit [facility] [address] [place] [address] Wilma Deleon, PT PT EVALUATION 12/17/2024 Episode Documentatio n Update [facility] [address] [place], [place] [phone] Jenna Balbuena 12/16/2024 9:30 AM EDT Home Care Visit [facility] [address] [place], [place] [phone] Telma Greco, MAHOGANY SN HOME VISIT 12/16/2024 Episode Documentatio n Update [facility] [address] [place] [address] Jenna Balbuena 12/15/2024 Episode Documentatio n Update [facility] [address] [place] [address] Lizette Webb 12/13/2024 10:00 AM EDT Home Care Visit [facility] [address] [place] [address] Yaneth Ndiaye LPN SORTING MACHINE ATTENDANT HOME VISIT 12/10/2024 2:30 PM EDT Home Care Visit [facility] [address] [place] [address] Irena Lai, OT OT EVALUATION 12/10/2024 Home Care Visit [facility] [address] [place] [address] Catalina Herrmann, PT TELEPHONE ENCOUNTER 12/10/2024 Episode Documentatio n Update [facility] [address] [place] [address] 12/10/2024 Plan of Care Documentation [facility] [address] [place] [address] 12/08/2024 7:00 AM EDT Home Care Visit [facility] [address] [place] [address] Mehnaz Zuluaga, MAHOGANY SN OASIS START OF CARE (SOC) 12/03/2024 Orders Only [facility] [address] [place] [address] Homehealth, Interface ProviderMD from Last 3 Months [...] topic Medical Devices Not on file Insurance [employer] INDEMNITY [employer] IN[employer]MNITY [employer] TOTAL CHOICE INDEMNITY [email or web address] [facility] TOTAL CHOICE INDEMNITY [email or web address] [facility] TOTAL CHOICE INDEMNITY [email or web address] [facility] TOTAL CHOICE INDEMNITY [employer]DEMN[employer]DEMNITY [email or web address] [facility] TOTAL CHOICE INDEMNITY Care Teams After School Driver Relationship Specialty Start Date End Date Amber Coronado PA [address] [place] [address] Drive [address] [place] [address] [email or web address] PCP - General Physician Professor Of German 01/13/25 Additional Source Comments The information contained in this document represents components of the legal health record. It is not the complete legal health record.[facility]
--- OUTSIDE RECORDS SUMMARY | 2025-03-02 08:25 | XMS_ITS | Patient Health Record ---
Author Organization [facility] Address [address] [place] [address] Care Team Providers Care Wire Tinner Name Role Phone Yoshi (RETIRED) Berto DONALDSON Primary Care Provide r Demarcus Alston Unavailable [phone] Reason For Referral No Information Medications Medication [...] W/U Status Risk Notes Problem Abnormal feces (041209626) Heme + stool (R19.5) Active confirmed Problem Hemorrhage of rectum and anus (607492894) Rectal bleed (K62.5) Active confirmed Plan Of Treatment Future Test Test Name Order Date COLONOSCOPY 01/27/2020 Insurance Providers Payer Name Payer Address Payer Phone Subscriber Number Group Number Insured Name Patient Relationship to Insured Coverage Start Date Coverage End Date [employer] [address] [place] [address] [id number] JULIANNA OSHEA Self - patient is the insured Medical (General) History Medical History History ICD Code Denies DE,DM,CVA,Lung disease,renal dise ase Hypertension Hyperlipidemia Surgical History Surgery Date(Month/Year) Cyst near the thyroid
--- OUTSIDE RECORDS SUMMARY | 2025-03-02 08:25 | XMS_ITS | Continuity of Care Document ---
Author Organization [facility] [address] [place] [address] Phone [phone] Care Team Providers Care Electronic Parts Salesperson Name Role Phone Berto Belle M.D. Care Team Information Receiv er [phone] Problems Active Problems Provider Date Non-toxic multinodular [...] Medications SIG Qnty Indications Ordering Provider Date [id number] Tablets 1 tabs by mouth twice a day 90tabs Berto Belle M.D. [id number] Tablets 1 tab by mouth every day 90tabs Berto Belle M.D. Ejquksapcee22wb Tablets 1 tab by mouth every day 90tabs Berto Belle M.D. Trazodone [id number] Tablets 1 tab by mouth at bedtime [...] ng/dL 0.82-1.77 TSH Thyroid Stimulating Horm 02/26/2023 [facility] TSH Thyroid Stimulating Horm <pending> T3 Free 02/26/2023 [facility] T3 Free <pending> T4 Free Thyroxine Mass/Vol 02/26/2023 [facility] T4 Free Thyroxine Mass/Vol <pending> Free T3 02/26/2023 [facility] Free T3 3.8 pg/mL (2.3-5.0) Free T4 02/26/2023 [facility] Free T4 1.36 ng/dL (0.70-1.8 0) TSH 02/26/2023 [facility] TSH 1.01 uIU/mL (0.4-4.2) TSH W/Reflex To Free T4 02/26/2022 [facility] TSH W/Reflex To Free T4 <pending> TSH With Reflex To FT4 02/26/2022 [facility] TSH With Reflex [...]
--- OUTSIDE RECORDS SUMMARY | 2025-03-02 08:25 | XMS_ITS | Patient Health Record ---
[facility] [place] Address [address] [place] [address] Care Team Providers Care Third Rigger Name Role Phone Berto Belle MD Primary Care Provider Isma Diaz Unavailable [phone] Allergies Allergen (clinical drug ingredient) Drug/Non Drug [...] Status Risk Notes Problem Acquired hallux valgus (89765374) Hallux valgus (acquired), left foot (M20.12) Active confirmed Problem Acquired hallux valgus (05635141) Hallux valgus (acquired), right foot (M20.11) Active confirmed Problem Acquired hammer toe of right foot (9923531879737 105) Other hammer toe(s) (acquired), right foot (M20.41) Active confirmed Problem Acquired hammer toe of left foot (1407518466845 103) Other hammer toe(s) (acquired), left foot (M20.42) Active confirmed Plan Of Treatment No Information Insurance Providers Payer Name Payer Address Payer Phone Subscriber Number Group Number Insured Name Patient Relationship to Insured Coverage Start Date Coverage End Date [facility] [address] [place] [address] [phone] [id number] Ruthie Duran Self - patient is the insured 1 Medical (General) History Medical History History ICD Code Anxiety CAD (Cholesterol) High blood pressure trouble sleeping nausea from tooth surgery Surgical History Surgery Date(Month/Year) Tooth extraction 06/2020
== END 2025-03-01 08:23 | disposition home or self-care (01) ==
LOC: HO.HOSX 08:22
PROVIDERS: Visit Provider Orthopaedic Surgery
DX: M17.12 Unilateral primary osteoarthritis, left knee (principal)
CPT/HCPCS: 20610; 73562; J1010; J2003

== ENCOUNTER 2025-03-01 11:11 | Outpatient (AMB) | payer OTHER, SELFPAY ==
--- NOTE | 2025-03-01 11:33 | A.OFFVIS_ITS ---
Vital Signs 03/01/25 11:36 Height 4 ft 11 in Weight 130 lb BMI 26.3 Intake Visit Reasons: Left knee pain Intake Note: Ruthie is a 89 year old female who presents with complaints of left knee pain. She describes her pain as sharp in nature. She has taken Tylenol which gives her mild relief. She is not able to take anti-inflammatory medicines because she is on Eliquis. She wishes to hold off on surgery if at all possible. Know: No HX: Yes Allergies No Known Allergies (No Known Allergies*) Allergy (Verified 01/19/25 16:17) Medication List - Last Reconciled 03/01/25 by Zaid Stone MD amlodipine 10 mg PO DAILY apixaban (Eliquis) 2.5 mg PO BID aspirin 81 mg PO DAILY atenolol 12.5 mg (1/2 x 25 mg) PO BID atorvastatin 10 mg PO BEDTIME commode (bedside commode) As directed diclofenac sodium 1% 4 grams topical QID doxazosin 2 mg PO BEDTIME sertraline 12.5 mg (1/2 x 25 mg) PO DAILY temazepam 30 mg PO BEDTIME PRN walker (Ultra-Light Rollator misc) As directed [facility] Medical History (Updated 03/01/25 @ 12:06 by Zaid Stone MD) Embolic stroke Behavior related to cognitive impairment Atrial fibrillation CVA (cerebral vascular accident) Acute adjustment disorder with anxiety Primary insomnia Chest pain Hx of thyroid cyst Elevated cholesterol HTN (hypertension) Surgical History Hx of colonoscopy Hx of excision of mass Hx of cataract extraction Family History (Updated 01/19/25 @ 16:33 by Esther Otero MA) Brother Eye cancer Brother Abscess of pharynx or nasopharynx Mother No problems noted. Father No problems noted. Social History Household Members: None Housing: House Do you presently have visiting nurse or other home services: No Alcohol intake: never Patient Tobacco Use Status: Never used Tobacco e-Cigarette/Vaping Use: Never Used service: No Current occupational status: retired Cognitive needs: No Hearing needs: No Vision needs: Yes (rx glasses) Physical Exam Vital Signs: BMI result Body Mass Index 26.3 Extrem Other: Left knee examination shows a minimal effusion, palpable crepitus with range of motion, pain with range of motion, no instability Office Procedures AMB Joint Injection/Aspiration Joint Injection/Aspiration Primary Site: Left Knee Prep: site was prepped using aseptic technique Injected: 40 mg of, DepoMedrol, with 3 mL of and 1% plain Lidocaine Procedure: The patient tolerated the procedure well Coding - Large joint Procedure code (CPT) selection complete Results Reviewed Results Reviewed: X-rays of the patient's left knee show joint space narrowing, subchondral sclerosis, no acute bony abnormalities Assessment & Plan Assessment & Plan (1) Osteoarthritis of left knee: Code(s): M17.12 - Unilateral primary osteoarthritis, left knee Category: Medical (2) Left knee pain: Code(s): M25.562 - Pain in left knee Category: Medical Plan Ruthie presents with left knee pain due to osteoarthritis. The risks and benefits of a left knee cortisone injection were discussed at length with the patient. The patient wished to proceed. She tolerated the injection well. She will continue with her home exercise program. She will contact me prior to her follow-up appointment in 3 months should any questions or concerns arise. Feel free to call me at any time should questions regarding her orthopedic management arise. I spent 21 minutes in reviewing the patient's records and imaging studies, anna capps the patient and documenting in the medical record. Orders: Orders XR knee LT 3V Today M25.562 - Pain in left knee AMB Joint Injection/Aspiration Today M17.12 - Unilateral primary osteoarthritis, left knee Coding Level of Care Code New Pt Level 3 (81837) Add On Problem Visit Only Diagnoses Osteoarthritis of left knee M17.12 Left knee pain M25.562 CPT Codes Coding - Large joint: 88859 - Large joint ([id number])
[2025-03-01 11:36] VITALS: BMI 26.3
--- OUTSIDE RECORDS SUMMARY | 2025-03-01 12:34 | XMS_ITS | Patient Health Record ---
Author Organization [facility] Address [address] [place] [address] Care Team Providers Care Mail Agent Name Role Phone Yoshi (RETIRED) Berto DONALDSON Primary Care Provide r Demarcus Alston Unavailable [phone] Reason For Referral No Information Medications Medication SIG (Take, Route, Frequency, Duration) Notes Start Date End Date Status Atenolol 50 MG Tablet TAKE 1 TABLET BY M OUTH EVERY DAY Oral; Duration: 7 Active Simvastatin 1 tablet in the even ing Orally Once a day Active Lisinopril 5 MG Tablet TK 1 T PO QD Oral ; Duration: 30 Active Aspirin 81 81 MG Tablet Delayed Release 1 tablet Orally Once a day Active Immunizations Vaccine Route Administration Date Status Comme nts Influenza Unknown 01/27/2020 Refused Social History Tobacco Use: Social History Observation Description Date Details (start date - stop date) Never Smoker NA - NA Social History Drugs/Alcohol: Social Info Question Answer Notes Alcohol Screen Did you have a drink containing alcohol in the past year? 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 Section Notes: Nonsmoker; no sig alcohol Problems Problem Type SNOMED Code ICD Code Onset Dates Problem Status W/U Status Risk Notes Problem Abnormal feces (194534481) Heme + stool (R19.5) Active confirmed Problem Hemorrhage of rectum and anus (263732582) Rectal bleed (K62.5) Active confirmed Plan Of Treatment Future Test Test Name Order Date COLONOSCOPY 01/27/2020 Insurance Providers Payer Name Payer Address Payer Phone Subscriber Number Group Number Insured Name Patient Relationship to Insured Coverage Start Date Coverage End Date [employer] [address] [place] [address] [id number] JULIANNA OSHEA Self - patient is the insured Medical (General) History Medical History History ICD Code Denies CT,DM,CVA,Lung disease,renal dise ase Hypertension Hyperlipidemia Surgical History Surgery Date(Month/Year) Cyst near the thyroid
--- OUTSIDE RECORDS SUMMARY | 2025-03-01 12:34 | XMS_ITS | Clinical Summary ---
Author Organization [facility] Address [address] [place] [address] Care Team Providers Care Load Out Worker Name Role Phone Unavailable Primary Care Provider [...] 75+ series) 2012 COVID-19 Vaccine ( - 2024-2 6 season) 2024 Influenza Vaccine (#1) 2024 11/26/2023 [...] topic Meningococcal Vaccine Aged Out No johann daneil eligible based on patient's age to complete this topic RSV under 20 months Aged Out No longe r eligible based on patient's age to complete this topic Rotavirus Vaccines Aged Out No longer eligible based on patient's age to complete this topic Insurance [facility] [employer] Member Subscriber Plan / Payer ( fective 2023-Present) Name:Ruthie Tolbert Relation to Subscriber:Self Name:Ruthie Tolbert Payer ID:Not on file Group ID:Not on file Type:Not on file Address: [place] [id number] [facility] Member Subscriber Plan / Payer ( fective 2023-Present) Name:Ruthie Tolbert Relation to Subscriber:Self Name:Ruthie Tolbert Payer ID:Not on file Group ID:Not on file Type:Not on file Address: [place] [id number]
--- OUTSIDE RECORDS SUMMARY | 2025-03-01 12:34 | XMS_ITS | Continuity of Care Document ---
Author Organization [facility] [address] [place] [address] Phone [phone] Care Team Providers Care Otolaryngology Rep Name Role Phone Berto Belle M.D. Care Team Information Receiv er [phone] Problems Active Problems Provider Date Non-toxic multinodular [...] Medications SIG Qnty Indications Ordering Provider Date Rpjergpb01mf Tablets 1 tabs by mouth twice a day 90tabs Berto Belle M.D. Hppssvvpmv16lq Tablets 1 tab by mouth every day 90tabs Berto Belle M.D. Nrfrylkfwjo36pu Tablets 1 tab by mouth every day 90tabs Berto Belle M.D. Trazodone SNA338us Tablets 1 tab by mouth at bedtime [...] ng/dL 0.82-1.77 TSH Thyroid Stimulating Horm 02/26/2023 [facility] TSH Thyroid Stimulating Horm <pending> T3 Free 02/26/2023 [facility] T3 Free <pending> T4 Free Thyroxine Mass/Vol 02/26/2023 [facility] T4 Free Thyroxine Mass/Vol <pending> Free T3 02/26/2023 [facility] Free T3 3.8 pg/mL (2.3-5.0) Free T4 02/26/2023 [facility] Free T4 1.36 ng/dL (0.70-1.8 0) TSH 02/26/2023 [facility] TSH 1.01 uIU/mL (0.4-4.2) TSH W/Reflex To Free T4 02/26/2022 [facility] TSH W/Reflex To Free T4 <pending> TSH With Reflex To FT4 02/26/2022 [facility] TSH With Reflex To [...]
--- OUTSIDE RECORDS SUMMARY | 2025-03-01 12:34 | XMS_ITS | Patient Health Record ---
[facility] [place] Address [address] [place] [address] Care Team Providers Care Staffing Program Manager Name Role Phone Berto Belle MD Primary Care Provider Isma Diaz Unavailable [phone] Allergies Allergen (clinical drug ingredient) Drug/Non Drug [...] Status Risk Notes Problem Acquired hallux valgus (90110238) Hallux valgus (acquired), left foot (M20.12) Active confirmed Problem Acquired hallux valgus (18818369) Hallux valgus (acquired), right foot (M20.11) Active confirmed Problem Acquired hammer toe of right foot ([id number] 105) Other hammer toe(s) (acquired), right foot (M20.41) Active confirmed Problem Acquired hammer toe of left foot (7649823496453 103) Other hammer toe(s) (acquired), left foot (M20.42) Active confirmed Plan Of Treatment No Information Insurance Providers Payer Name Payer Address Payer Phone Subscriber Number Group Number Insured Name Patient Relationship to Insured Coverage Start Date Coverage End Date [facility] [address] [place] [address] [id number] Ruthie Duran Self - patient is the insured 1 Medical (General) History Medical History History ICD Code Anxiety CAD (Cholesterol) High blood pressure trouble sleeping nausea from tooth surgery Surgical History Surgery Date(Month/Year) Tooth extraction 06/2020
--- OUTSIDE RECORDS SUMMARY | 2025-03-01 12:34 | XMS_ITS | Clinical Summary ---
Author Organization [facility] Address [address] [address] Phone Care Team Providers Care Concrete Engineer Name Role Phone Amber Coronado Primary Care Provider [phone] Medications lisinopril (PRINIVIL,ZESTR IL) 20 MG tablet Take 20 mg by mouth daily. 3 Active atorvastatin (LIPITOR) 80 MG tablet Take 80 mg by mouth daily. 3 Active senna (SENNA LAXATIVE) 8.6 mg tablet Take 1 tablet by mouth daily. 3 Active BABY ASPIRIN ORAL Take 81 mg by mouth daily. 3 Active amLODIPine [...] tablet Take 30 mg by mouth daily. 5 Active simvastatin (ZOCOR) 40 MG tablet Take 40 mg by mouth nightly at bedtime. 5 Active temazepam (RESTORIL) 30 mg capsule Take 30 mg by mouth nightly at bedtime as needed for anxiety or sleep. 5 Active docusate sodium (COLACE) 100 MG capsule Take 100 mg by mouth 2 (two) times a day. Take 1 capsule twice daily and hold for loose stool. Active amLODIPine (NORVASC) 10 MG tablet Take 10 mg by mouth daily. new bottle of med found in pt house 01/21/25. Active atorvastatin (LIPITOR) 10 MG tablet Take 10 mg by mouth nightly at bedtime. new bottle of med found in pt house 01/21/25. Active atenolol (TENORMIN) 25 MG tablet Take 12.5 mg by mouth 2 (two) times a day (once in the morning and once in the afternoon). Active diclofenac sodium (VOLTAREN) 1 % Gel Apply 2 g topically as needed for other (free text field) (prn pain). Active sertraline (ZOLOFT) 25 MG tablet Take 12.5 mg by mouth daily. Active Encounters Date Type Department Care Team Description 01/31/2025 10:30 AM EST Home Care Visit [facility] [address] [place] [address] Esther Magallon, PT PT OASIS DISCHARGE VISIT 01/31/2025 Episode Documentatio n Update [facility] [address] [place] [address] Jonna Ricketts 01/27/2025 11:00 AM EST Home Care Visit [facility] [address] [place] [address] Esther Magallon, PT PT HOME VISIT 01/26/2025 9:00 AM EST Home Care Visit [facility] [address] [place] [address] Irena Lai, OT OT DISCIPLINE DISCHARGE VISIT 01/26/2025 Episode Documentatio n Update [facility] [address] [place] [address] Jonna Ricketts 01/25/2025 10:30 AM EST Home Care Visit [facility] [address] [place] [address] Esther Magallon, PT PT HOME VISIT 01/24/2025 9:00 AM EST Home Care Visit [facility] [address] [place] [address] Irena Lai, OT OT HOME VISIT 01/21/2025 10:30 AM EST Home Care Visit [facility] [address] [place] [address] Esther Magallon, PT PT HOME VISIT 01/21/2025 9:00 AM EST Home Care Visit [facility] [address] [place] [address] Irena Lai, OT OT HOME VISIT 01/18/2025 10:00 AM EST Home Care Visit [facility] [address] [place] [address] Irena Lai, OT OT HOME VISIT 01/17/2025 10:30 AM EST Home Care Visit [facility] [address] [place] [address] Esther Magallon, PT PT HOME VISIT 01/14/2025 9:00 AM EST Home Care Visit [facility] [address] [place] [address] Irena Lai, OT OT HOME VISIT 01/12/2025 11:00 AM EST Home Care Visit [facility] [address] [place] [address] Esther Magallon, PT PT TFA VISIT 01/11/2025 11:30 AM EST Home Care Visit [facility] [address] [place] [address] Daisy Antoine, MAHOGANY SN DISCIPLINE DISCHARGE VISIT 01/10/2025 1:30 PM EST Home Care Visit [facility] [address] [place], [place] [phone] Irena Lai, OT OT HOME VISIT 01/10/2025 10:30 AM EST Home Care Visit [facility] [address] [place], [place] [phone] Esther Magallon, PT PT HOME VISIT 01/10/2025 Episode Documentatio n Update [facility] [address] [place], [place] [phone] Jonna Ricketts 01/05/2025 1:30 PM EDT Home Care Visit [facility] [address] [place] [address] Irena Lai, OT OT HOME VISIT 01/05/2025 10:30 AM EDT Home Care Visit [facility] [address] [place] [address] Esther Magallno, PT PT HOME VISIT 01/03/2025 1:30 PM EDT Home Care Visit [facility] [address] [place] [address] Irena Lai, OT OT HOME VISIT 01/03/2025 10:30 AM EDT Home Care Visit [facility] [address] [place] [address] Esther Magallon, PT PT HOME VISIT 12/30/2024 10:30 AM EDT Home Care Visit [facility] [address] [place], [place] [phone] Esther Magallon, PT PT HOME VISIT 12/30/2024 9:00 AM EDT Home Care Visit [facility] [address] [place], [place] [phone] Irena Lai, OT OT HOME VISIT 12/29/2024 1:30 PM EDT Home Care Visit [facility] [address] [facility] [place], [place] [phone] Irena Lai, OT OT TFA VISIT 12/27/2024 1:30 PM EDT Home Care Visit [facility] [address] [place] [address] Irena Lai, OT OT HOME VISIT 12/27/2024 10:30 AM EDT Home Care Visit [facility] [address] [place] [address] Esther Magallon, PT PT HOME VISIT 12/24/2024 1:45 PM EDT Home Care Visit [facility] [address] [place] [address] Angélica Burdick LPN [employer] HOME VISIT 12/24/2024 12:00 PM EDT Home Care Visit [facility] [address] [place] [address] Irena Lai, OT OT HOME VISIT 12/22/2024 10:15 AM EDT Home Care Visit [facility] [address] [place] [address] Valerie Sparrow, MANAGER BUSINESS OPERATIONS MANAGER BUSINESS OPERATIONS HOME VISIT 12/21/2024 2:30 PM EDT Home Care Visit [facility] [address] [place] [address] Irena Lai, OT OT HOME VISIT 12/17/2024 9:15 AM EDT Home Care Visit [facility] [address] [place] [address] Wilma Deleon, PT PT EVALUATION 12/17/2024 Episode Documentatio n Update [facility] [address] [place], [place] [phone] Jenna Balbuena 12/16/2024 9:30 AM EDT Home Care Visit [facility] [address] [place], [place] [phone] Telma Greco, MAHOGANY SN HOME VISIT 12/16/2024 Episode Documentatio n Update [facility] [address] [place] [address] Jenna Balbuena 12/15/2024 Episode Documentatio n Update [facility] [address] [place] [address] Lizette Webb 12/13/2024 10:00 AM EDT Home Care Visit [facility] [address] [place] [address] Yaneth Ndiaye LPN [employer] HOME VISIT 12/10/2024 2:30 PM EDT Home Care Visit [facility] [address] [place] [address] Irena Lai, OT OT EVALUATION 12/10/2024 Home Care Visit [facility] [address] [place] [address] Catalina Herrmann, PT TELEPHONE ENCOUNTER 12/10/2024 Episode Documentatio n Update [facility] [address] [place] [address] 12/10/2024 Plan of Care Documentation [facility] [address] [place] [address] 12/08/2024 7:00 AM EDT Home Care Visit [facility] [address] [place] [address] Mehnaz Zuluaga, MAHOGANY SN OASIS START OF CARE (SOC) 12/03/2024 Orders Only [facility] [address] [place] [address] Homehealth, Interface ProviderMD from Last 3 Months Social History Tobacco Use Types Packs/Day Years Used Date Smoking Tobacco: Never Assessed Home Health Assessment: Transportation Answer Date Recorded Lack of Transportation (Medical) No 01/31/2025 Lack of Transportation (Non-Medical) No 01/31/2025 Patient Unable or Declines to Respond No 01/31/2025 Education Answer Date Recorded Are you interested [...] Sign Reading Time Taken Comments Blood Pressure 122/60 01/31/2025 11:03 AM EST Pulse 54 01/31/2025 11:03 AM EST Temperature 36.4 C (97.5 F) 01/31/2025 11:03 AM EST Respiratory Rate 18 01/31/2025 11:03 AM EST Oxygen Saturation 94% 01/31/2025 11:03 AM EST Inhaled Oxygen Concentration - - [...] topic Medical Devices Not on file Insurance [email or web address] INDEMNITY [email or web address] T[employer] IN[employer]MN[email or web address] [facility] TOTAL CHOICE INDEMNITY [email or web address] [facility] [employer] CHO[employer] IN[employer]MNITY [email or web address] [facility] [employer] CHO[employer] IN[employer]MNITY [email or web address] [facility] [employer] INDEMNITY Care Teams Concrete Engineer Relationship Specialty Start Date End Date Amber Coronado PA [address] [place] [address] Drive [address] [place] [address] [email or web address] PCP - General Physician Blood Bank Coordinator 01/13/25 Additional Source Comments The information contained in this document represents components of the legal health record. It is not the complete legal health record.[facility]
== END 2025-03-01 11:55 | disposition home or self-care (01) ==
LOC: HO.HOS 11:12
PROVIDERS: Visit Provider Orthopaedic Surgery
DX: M17.12 Unilateral primary osteoarthritis, left knee (principal); M25.562 Pain in left knee
CPT/HCPCS: 20610; 99203

== ENCOUNTER → 2025-03-01 11:19 | Outpatient (BNV) | payer OTHER, SELFPAY | PROVIDERS: Visit Provider Radiology Diagnostic Ultrasound | DX: M17.12 Unilateral primary osteoarthritis, left knee (principal) | CPT/HCPCS: 73562 ==